=== PATIENT | male | born 1945 | race Caucasian/White ===

== ENCOUNTER 2017-05-24 08:00 | Outpatient (CLI) | payer MEDICARE, OTHER ==
[2017-05-26 11:56] LABS: TEST RESULT REPORT (())
== END 2017-05-24 23:59 | disposition home or self-care (01) ==
LOC: LAB.WCP 08:00
PROVIDERS: ATTEND Internal Medicine Gastroenterology
DX: K52.9 Noninfective gastroenteritis and colitis, unspecified (principal)
CPT/HCPCS: 81599; 82705; 87045; 87046; 87177; 87209; 87329; 87493

== ENCOUNTER 2017-06-01 16:47 | Emergency (ER) | payer MEDICARE, OTHER ==
[2017-06-01] MEDS ORDERED: SODIUM CHLORIDE FLUSH 0.9% 10 ML SYRINGE IVP ONE ×2 (17:22→19:53)
--- NOTE | 2017-06-01 17:49 | ED Physician Documentation ---
History of Present Illness - Stated complaint Stated Complaint: BACK PX, LE NUMBNESS - Chief complaint Chief Complaint: Back Pain - Additonal information Additional information: hx from pt and - but history is very difficult to obtain as best i can tell pt was in good health except for diarrhea when he was seen by his PMD office [facility] May 20 for diarrhea, they started him on a med taken q6h that he does not know the name of just that it is a "tiny little thing", eventually the diarrhea stopped, but now he has severe abd and low back pain like he is being squeezed and torn by a giant pain of pliers and both his legs are numb, this has been going on for 1-2 weeks, getting worse, he has only had water for at least 4 days but has been drinking annd making urine and has mostly been in bed only getting up to sit in his chair no headache no chest pain no fever no NV did not see PMD for same Review of Systems Constitutional: denies: Fever Cardiac: denies: Chest pain / pressure, Palpitations Respiratory: denies: Dyspnea, Cough GI: reports: Abdominal Pain, Diarrhea. denies: Nausea, Vomiting : denies: Dysuria Musculoskeletal: reports: Back pain Neurologic: reports: Numbness (both legs) Endocrine: denies: Easy bruising / bleeding Immunocompromised: denies: Immunocompromised PD PAST MEDICAL HISTORY - Past Medical History Cardiovascular: Hypertension, Coronary artery disease, Other Respiratory: Shortness of breath Neuro: Other Endocrine/Autoimmune: None GI: GERD : Benign prostate hypertrophy HEENT: Chronic hearing loss Psych: None Musculoskeletal: Osteoarthritis, Gout Derm: Other Other Past Medical History: ischemic cardiomyopathy - Past Surgical History Past Surgical History: Yes Cardiovascular: Coronary stent - Present Medications Home Medications: Ambulatory Orders Medication Instructions Recorded Confirmed Aspirin EC [Ecotrin] 325 mg PO DAILY 12/03/13 06/23/15 Atenolol [Tenormin] 25 mg PO BID 12/03/13 06/23/15 Atorvastatin Calcium [Lipitor] 20 mg PO HS 12/03/13 06/23/15 Cetirizine [ZyrTEC] 10 mg PO DAILY 12/03/13 06/23/15 Felodipine [Plendil] 10 mg PO DAILY 12/03/13 06/23/15 hydroCHLOROthiazide [Hydrodiuril] 12.5 mg PO DAILY 12/03/13 06/23/15 Cyclobenzaprine [Flexeril] 10 mg PO DAILY 06/23/15 06/23/15 Ezetimibe [Zetia] 10 mg PO DAILY 06/23/15 06/23/15 Fluticasone/Salmeterol [Advair 06/23/15 06/23/15 100-50 Diskus] HYDROcod/ACETAM 5/325 [Vicodin 06/23/15 06/23/15 5/325] Telmisartan [Micardis] 80 mg PO DAILY 06/23/15 06/23/15 - Allergies Allergies/Adverse Reactions: Allergies Allergy/AdvReac Type Severity Reaction Status Date / Time No Known Drug Allergies Allergy Verified 12/03/13 06:33 - Social History Does the pt smoke?: No Smoking Status: Never smoker Does the pt drink ETOH?: No Does the pt have substance abuse?: No - Immunizations Immunizations are current?: Yes - POLST Patient has POLST: No PD ED PE NORMAL - Vitals Vital signs reviewed: Yes - General General: Other (alert cooperative) - HEENT HEENT: Other (very [place]) - Neck Neck: Supple, no meningeal sign - Cardiac Cardiac: RRR - Respiratory Respiratory: No respiratory distress, Clear bilaterally - Abdomen Abdomen: Soft, Other (TTP mid abd, no pulasatile mass appreciated) - Back Back: Other (no rash) - Derm Derm: Normal color - Extremities Extremities: No deformity - Neuro Neuro: Other (pt has sensation light touch to legs, diffusely weak and cannot lift legs but foot dorsi/plantar flexion is 5/5, no ankle clonus) Results - Vitals Vitals: Vital Signs - 24 hr 06/01/17 06/01/17 06/01/17 17:06 17:34 17:36 Temperature 36.6 C Heart Rate 81 74 83 Respiratory 16 18 16 Rate Blood Pressure 72/45 L 92/47 L 88/53 L O2 Saturation 95 97 96 06/01/17 06/01/17 06/01/17 18:02 18:14 18:19 Temperature 36.2 C L Heart Rate 85 80 75 Respiratory 18 15 20 Rate Blood Pressure 136/56 H 97/54 L 107/39 L O2 Saturation 96 97 97 06/01/17 06/01/17 06/01/17 18:30 18:34 19:20 Temperature Heart Rate 78 74 80 Respiratory 18 20 18 Rate Blood Pressure 92/54 L 89/36 L 100/35 L O2 Saturation 85 L 95 99 06/01/17 06/01/17 06/01/17 20:00 20:33 22:04 Temperature Heart Rate 86 89 94 Respiratory 17 16 14 Rate Blood Pressure 99/48 L 93/38 L 113/48 L O2 Saturation 100 99 100 Oxygen O2 Source Nasal cannula Oxygen Flow Rate 2 - EKG (time done) 1956 Rate: Rate (enter#) (approx 80) Other comments: Other comments (wide complex regular no P waves seen c/w marked hyperkalmeia, possibly an escape rhythm) EKG#2 Other comments: Other comments (still wide complex c/w hyperkalemia but p waves now seen) - Labs Labs: Laboratory Tests 06/01/17 06/01/17 06/01/17 17:38 17:38 17:38 WBC 6.3 RBC 3.70 L Hgb 11.6 L Hct 35.5 L MCV 96.0 H MCH 31.4 H MCHC 32.7 RDW 16.7 H Plt Count 154 MPV 10.9 Neut # 4.7 Lymph # 1.1 L Wolfe # 0.5 Eos # 0.1 Baso # 0.0 Absolute Nucleated RBC 0.00 Nucleated RBCs 0.0 Sodium 131 L Potassium 7.5 H* Chloride 104 Carbon Dioxide 10 L* Anion Gap 17.0 H BUN 176 H* Creatinine 10.3 H* Estimated GFR (MDRD) 5 L Glucose 109 H POC Whole Bld Glucose Calcium 8.5 Total Bilirubin 0.8 AST 85 H ALT 59 Alkaline Phosphatase 112 Troponin I 0.32 Total Protein 7.3 Albumin 4.0 Globulin 3.3 Albumin/Globulin Ratio 1.2 Lipase 75 H Urine Color Urine Clarity Urine pH Ur Specific [place] Urine Protein Urine Glucose (UA) Urine Ketones Urine Occult Blood Urine Nitrite Urine Bilirubin Urine Urobilinogen Ur Leukocyte Esterase Urine RBC Urine WBC Ur Squamous Epith Cells Urine Bacteria Ur Microscopic Review Urine Culture Comments 06/01/17 06/01/17 06/01/17 20:44 20:49 22:00 WBC RBC Hgb Hct MCV MCH MCHC RDW Plt Count MPV Neut # Lymph # Wolfe # Eos # Baso # Absolute Nucleated RBC Nucleated RBCs Sodium 134 L Potassium 6.9 H* Chloride 109 Carbon Dioxide 13 L Anion Gap 12.0 BUN 169 H* Creatinine 9.1 H* Estimated GFR (MDRD) 6 L Glucose 178 H POC Whole Bld Glucose 158 H Calcium 7.8 L Total Bilirubin AST ALT Alkaline Phosphatase Troponin I Total Protein Albumin Globulin Albumin/Globulin Ratio Lipase Urine Color YELLOW Urine Clarity HAZY Urine pH 5.5 Ur Specific [place] 1.010 Urine Protein NEGATIVE Urine Glucose (UA) NEGATIVE Urine Ketones NEGATIVE Urine Occult Blood LARGE H Urine Nitrite NEGATIVE Urine Bilirubin NEGATIVE Urine Urobilinogen 0.2 (NORMAL) Ur Leukocyte Esterase NEGATIVE Urine RBC 6-10 H Urine WBC 0-3 Ur Squamous Epith Cells NONE SEEN Urine Bacteria None Seen Ur Microscopic Review INDICATED Urine Culture Comments NOT INDICATED - Rads (name of study) CT angio abd pelvis Radiology: See rad report (no acute process) PD MEDICAL DECISION MAKING - ED course ED course: pt with baseline renal insuff creat usually 1.6-2 range but pt with known vascular dz (ischemic cardiomypathy) presenting with severe acute abd and back pain and SBP 70 and nguyễn LE numbness, unable to viz aorta on bedside sono 2/2 overlying gas- sig concern for vascular catastrophe - so proceeded straight to angiogram without waiting for labs (which took 2 hr to result) - gave IVF 2 L to mitigate renal effects unfortunately when labs were eventually resulted, pt has new ARF with creat 10 and GFR 5 and associated hyperkalemia txed K with calcium insulin/D50/bicarb and will transfer as pt may need dialysis danuta after getting the IV contrast CT neg for any acute process or explanation for severe low abd to back pain and associated hypotension, after 2 L fluid BP up to 90s and pt pain is better - perhaps low flow ischemia though that should have shown on CTA as well with above intervention creat and K both improved though EKG # 2 is essentially unchanged Departure - Departure Disposition: 02 Transfer Acute Care Hosp Clinical Impression: Hyperkalemia Acute renal failure Qualifiers: Acute renal failure type: unspecified Qualified Code(s): N17.9 - Acute kidney failure, unspecified Hypotension Qualifiers: Hypotension type: unspecified hypotension type Qualified Code(s): I95.9 - Hypotension, unspecified Abdominal pain Qualifiers: Abdominal location: lower abdomen, unspecified Qualified Code(s): R10.30 - Lower abdominal pain, unspecified Back pain Qualifiers: Back pain location: low back pain Chronicity: acute Back pain laterality: unspecified Sciatica presence: unspecified whether sciatica present Qualified Code(s): M54.5 - Low back pain Condition: Critical
[2017-06-01] MEDS: SODIUM CHLORIDE 0.9% 2,000 ML IV ONE (17:53)
[2017-06-01 18:08] LABS: BASOPHILS % (AUTO) 0.4 %; EOSINOPHILS # (AUTO) 0.1 10^3/uL (0.0-0.7); EOSINOPHILS % (AUTO) 0.9 %; HCT - HEMATOCRIT 35.5 % (42.0-52.0); HGB - HEMOGLOBIN 11.6 g/dL (14.0-18.0); LYMPHOCYTES # (AUTO) 1.1 10^3/uL (1.5-3.5); LYMPHOCYTES % (AUTO) 17.3 %; MEAN CORPUSCULAR HEMOGLOBIN 31.4 pg (27.0-31.0); MEAN CORPUSCULAR HGB CONC 32.7 g/dL (32.0-36.0); MEAN PLATELET VOLUME 10.9 fL (7.4-11.4); MONOCYTES # (AUTO) 0.5 10^3/uL (0.0-1.0); MONOCYTES % (AUTO) 7.4 %; NEUTROPHILS # (AUTO) 4.7 10^3/uL (1.5-6.6); RED CELL DISTRIBUTION WIDTH 16.7 % (12.0-15.0); UNCORRECTED WHITE BLOOD COUNT 6.3 x10^3/uL; WHITE BLOOD COUNT 6.3 x10^3/uL (4.8-10.8)
--- NOTE | 2017-06-01 19:10 | CT Preliminary Report ---
Exam: CT Abdomen/Pelvis Angio IMPRESSION: 1. No bowel obstruction, fluid collection or acute inflammatory process within the abdomen and pelvis . [facility] SITE ID: [id number]
--- NOTE | 2017-06-01 19:13 | CT Report ---
EXAM: CT ABDOMEN AND PELVIS EXAM DATE: 06/01/2017 06:31 PM. CLINICAL HISTORY: Abd pain back pain SBP 70. COMPARISONS: None. TECHNIQUE: Routine helical CT imaging was performed through the abdomen and pelvis. IV contrast: 100 mL Isovue-300. Enteric contrast: No. Reconstructions: Coronal and sagittal. In accordance with CT protocol optimization, one or more of the following dose reduction techniques w ere utilized for this exam: automated exposure control, adjustment of mA and/or KV based on patient s ize, or use of iterative reconstructive technique. FINDINGS: Lung Bases: Unremarkable. Liver: Normal. No masses. Gallbladder/Bile Ducts: Unremarkable. Spleen: Normal. Pancreas: Normal. Adrenal Glands: Normal. Kidneys: Numerous bilateral renal cysts. No solid renal mass or hydronephrosis. Peritoneal Cavity/Bowel: Normal. No free fluid, free air or adenopathy. No masses or acute inflammato ry process. No evidence of appendicitis. Pelvic Organs: Normal. The bladder and visualized pelvic organs are within normal limits. Vasculature: Atherosclerotic aortoiliac disease. No evidence of aneurysm. Bones: No significant abnormality. Other: None. IMPRESSION: 1. No bowel obstruction, fluid collection or acute inflammatory process within the abdomen and pelvis . [facility] Referring Provider Line: [phone] SITE ID: [id number]
[2017-06-01 19:26] LABS: ALBUMIN/GLOBULIN RATIO 1.2 (1.0-2.2); BILIRUBIN,TOTAL 0.8 mg/dL (0.2-1.0); CALCIUM 8.5 mg/dL (8.5-10.3); TOTAL PROTEIN 7.3 g/dL (6.7-8.2)
[2017-06-01 19:27] LABS: POTASSIUM 7.5 mmol/L (3.5-5.0)
[2017-06-01 19:28] LABS: CREATININE 10.3 mg/dL (0.6-1.2)
[2017-06-01] MEDS: IOPAMIDOL-300 100 ML VIAL IVP ONE (19:37)
[2017-06-01] MEDS ORDERED: CALCIUM GLUCONATE 1000 MG/10 ML VIAL ONE (19:51)
[2017-06-01] MEDS ORDERED: SODIUM POLYSTYRENE SULFONATE 15 GM/60 ML BOTTLE ONE (19:51)
[2017-06-01] MEDS ORDERED: DEXTROSE 50% ABBOJECT 25 GM/50 ML SYRINGE ONE (19:52)
[2017-06-01] MEDS ORDERED: INSULIN REGULAR HUMAN 100 UNIT/1 ML 10 ML MDV ONE (19:53)
[2017-06-01] MEDS: CALCIUM GLUCONATE 1000 MG/10 ML VIAL IVP STA (20:03)
[2017-06-01] MEDS: DEXTROSE 50% ABBOJECT 25 GM/50 ML SYRINGE IVP STA (20:04)
[2017-06-01] MEDS: INSULIN REGULAR HUMAN 100 UNIT/1 ML 10 ML MDV IVP STA (20:05)
[2017-06-01] MEDS: SODIUM CHLORIDE 0.9% 1,000 ML IV ONE (20:24)
[2017-06-01] MEDS: SODIUM POLYSTYRENE SULFONATE 15 GM/60 ML BOTTLE PO STA (20:24)
[2017-06-01] MEDS: SODIUM BICARBONATE ABBOJECT 50 MEQ/50 ML SYRINGE IVP STA (20:28)
[2017-06-01] MEDS ORDERED: SODIUM BICARBONATE ABBOJECT 50 MEQ/50 ML SYRINGE ONE (20:30)
[2017-06-01 21:22] LABS: CALCIUM 7.8 mg/dL (8.5-10.3); POTASSIUM 6.9 mmol/L (3.5-5.0)
[2017-06-01 21:23] LABS: CREATININE 9.1 mg/dL (0.6-1.2)
--- NOTE | 2017-06-01 21:32 | XRAY Preliminary Report ---
Exam: XR Chest 1 View IMPRESSION: No definite acute abnormality of the chest. [facility] SITE ID: [id number]
--- NOTE | 2017-06-01 21:35 | XRAY Report ---
EXAM: CHEST RADIOGRAPHY EXAM DATE: 06/01/2017 09:04 PM. CLINICAL HISTORY: Critical ill. COMPARISON: 2 views 04/06/2016. TECHNIQUE: 1 view. FINDINGS: Lungs/Pleura: Mildly diminished lung volumes. No definite pulmonary infiltrate, pulmonary edema, pleu ral effusion or pneumothorax. Mediastinum: Within exam limitations, cardiomediastinal contour is normal. Other: None. IMPRESSION: No definite acute abnormality of the chest. [facility] Referring Provider Line: [phone] SITE ID: [id number]
[2017-06-01 22:13] VITALS: BP 113/48
[2017-06-01 22:30] LABS: BILIRUBIN,URINE NEGATIVE (NEGATIVE); PH,URINE 5.5 PH (5.0-7.5)
[2017-06-01 22:35] LABS: UA w/ MICROSCOPIC CHARGE YES
[2017-06-01 22:54] LABS: WBC,URINE 0-3 /HPF (0-3)
[2017-06-01 22:55] LABS: UR CULTURE IF IND NOT INDICATED
== END 2017-06-01 23:11 | disposition short-term general hospital (02) ==
LOC: ED 16:47
DX: E87.5 Hyperkalemia (principal); N17.9 Acute kidney failure, unspecified; I95.9 Hypotension, unspecified; R10.30 Lower abdominal pain, unspecified; M54.5 Low back pain; I10 Essential (primary) hypertension; I25.10 Atherosclerotic heart disease of native coronary artery without angina pectoris; K21.9 Gastro-esophageal reflux disease without esophagitis; N40.0 Benign prostatic hyperplasia without lower urinary tract symptoms; M10.9 Gout, unspecified; M19.90 Unspecified osteoarthritis, unspecified site; Z79.82 Long term (current) use of aspirin
CPT/HCPCS: 36415; 51702; 71010; 74174; 80048; 80053; 81001; 83690; 84484; 85025; 93005; 96361; 96374; 96375; 99284; 99285; A9270; J1815; Q9967; 81003; 87086

== ENCOUNTER 2017-06-01 23:06 | Outpatient (CLI) | payer MEDICARE, OTHER | END 2017-06-01 23:07 | disposition short-term general hospital (02) | LOC: EMS 23:06 | PROVIDERS: ATTEND Surgery | DX: N19 Unspecified kidney failure (principal); E87.5 Hyperkalemia | CPT/HCPCS: A0425; A0426 ==

== ENCOUNTER 2017-10-01 13:05 | Outpatient (CLI) | payer MEDICARE, OTHER ==
[2017-10-01 19:11] LABS: IRON 49 ug/dL (45-182); TOTAL IRON BINDING CAPACITY 336 ug/dL (250-450); TRANSFERRIN 240 mg/dL (180-329)
== END 2017-10-01 13:06 | disposition home or self-care (01) ==
LOC: LAB.WCP 13:05
PROVIDERS: ATTEND Internal Medicine Cardiovascular Disease
DX: D64.9 Anemia, unspecified (principal)
CPT/HCPCS: 36415; 82607; 82746; 83540; 84466

== ENCOUNTER 2017-11-03 09:45 | Outpatient (CLI) | payer MEDICARE, OTHER ==
[2017-11-03 19:31] LABS: BASOPHILS # (AUTO) 0.1 10^3/uL (0.0-0.1); BASOPHILS % (AUTO) 1.1 %; EOSINOPHILS # (AUTO) 0.3 10^3/uL (0.0-0.7); EOSINOPHILS % (AUTO) 4.4 %; HGB - HEMOGLOBIN 12.5 g/dL (14.0-18.0); LYMPHOCYTES # (AUTO) 1.1 10^3/uL (1.5-3.5); LYMPHOCYTES % (AUTO) 16.9 %; MEAN CORPUSCULAR HEMOGLOBIN 30.9 pg (27.0-31.0); MEAN CORPUSCULAR HGB CONC 32.6 g/dL (32.0-36.0); MEAN CORPUSCULAR VOLUME 94.5 fL (80.0-94.0); MEAN PLATELET VOLUME 10.4 fL (7.4-11.4); MONOCYTES # (AUTO) 0.9 10^3/uL (0.0-1.0); MONOCYTES % (AUTO) 13.5 %; NEUTROPHILS # (AUTO) 4.3 10^3/uL (1.5-6.6); NEUTROPHILS % (AUTO) 64.1 %; PLT - PLATELET COUNT 162 10^3/uL (130-450); RED BLOOD COUNT 4.05 10^6/uL (4.70-6.10); RED CELL DISTRIBUTION WIDTH 16.9 % (12.0-15.0); WHITE BLOOD COUNT 6.8 x10^3/uL (4.8-10.8)
[2017-11-03 19:37] LABS: ALBUMIN 4.2 g/dL (3.2-5.5); ALBUMIN/GLOBULIN RATIO 1.3 (1.0-2.2); BILIRUBIN,TOTAL 0.6 mg/dL (0.2-1.0); CALCIUM 8.8 mg/dL (8.5-10.3); CREATININE 1.6 mg/dL (0.6-1.2); TOTAL PROTEIN 7.4 g/dL (6.7-8.2)
== END 2017-11-03 09:46 | disposition home or self-care (01) ==
LOC: LAB.WCP 09:45
PROVIDERS: ATTEND Physician Assistant Medical
DX: B02.9 Zoster without complications (principal); Z51.81 Encounter for therapeutic drug level monitoring; Z79.899 Other long term (current) drug therapy
CPT/HCPCS: 36415; 80053; 85025

== ENCOUNTER 2018-02-02 08:00 | Outpatient (CLI) | payer MEDICARE, OTHER ==
[2018-02-02 13:00] LABS: BASOPHILS # (AUTO) 0.1 10^3/uL (0.0-0.1); BASOPHILS % (AUTO) 1.2 %; EOSINOPHILS # (AUTO) 0.4 10^3/uL (0.0-0.7); EOSINOPHILS % (AUTO) 4.6 %; HGB - HEMOGLOBIN 12.4 g/dL (14.0-18.0); LYMPHOCYTES # (AUTO) 3.2 10^3/uL (1.5-3.5); LYMPHOCYTES % (AUTO) 33.8 %; MEAN CORPUSCULAR HEMOGLOBIN 32.4 pg (27.0-31.0); MEAN CORPUSCULAR HGB CONC 33.9 g/dL (32.0-36.0); MEAN CORPUSCULAR VOLUME 95.7 fL (80.0-94.0); MEAN PLATELET VOLUME 10.7 fL (7.4-11.4); MONOCYTES # (AUTO) 0.9 10^3/uL (0.0-1.0); MONOCYTES % (AUTO) 9.4 %; NEUTROPHILS # (AUTO) 4.8 10^3/uL (1.5-6.6); PLT - PLATELET COUNT 176 10^3/uL (130-450); RED BLOOD COUNT 3.83 10^6/uL (4.70-6.10); RED CELL DISTRIBUTION WIDTH 17.4 % (12.0-15.0); WHITE BLOOD COUNT 9.4 x10^3/uL (4.8-10.8)
[2018-02-02 13:31] LABS: ALBUMIN 3.8 g/dL (3.2-5.5); ALBUMIN/GLOBULIN RATIO 1.2 (1.0-2.2); ALKALINE PHOSPHATASE 107 IU/L (42-121); ALT ALANINE AMINOTRANSFERASE 33 IU/L (10-60); AST ASPARTATE AMINOTRANSFERASE 30 IU/L (10-42); BILIRUBIN,TOTAL 0.9 mg/dL (0.2-1.0); BUN - BLOOD UREA NITROGEN 31 mg/dL (6-20); CALCIUM 8.7 mg/dL (8.5-10.3); CARBON DIOXIDE - CO2 24 mmol/L (21-32); CHLORIDE 106 mmol/L (101-111); CHOL/HDL RATIO 3.1 (<5.0); CHOLESTEROL 127 mg/dL; CREATININE 1.5 mg/dL (0.6-1.2); GFR - MDRD 46 (>89); GLUCOSE 97 mg/dL (70-100); HDL CHOLESTEROL 41 mg/dL; LDL CHOLESTEROL,CALCULATED 62 mg/dL; LDL/HDL RATIO 1.5 (<3.6); SODIUM 138 mmol/L (135-145); VLDL CHOLESTEROL 24 mg/dL
== END 2018-02-02 08:01 ==
LOC: LAB.WCP 08:00
PROVIDERS: ATTEND Family Medicine
DX: N18.3 Chronic kidney disease, stage 3 (moderate) (principal); I25.5 Ischemic cardiomyopathy; B02.9 Zoster without complications
CPT/HCPCS: 36415; 80053; 80061; 83721; 85025

== ENCOUNTER 2018-03-15 08:00 | Outpatient (CLI) | payer MEDICARE, OTHER ==
[2018-03-15 12:53] LABS: CALCIUM 8.9 mg/dL (8.5-10.3); CREATININE 2.7 mg/dL (0.6-1.2); PHOSPHORUS 5.4 mg/dL (2.5-4.6)
== END 2018-03-15 08:01 | disposition home or self-care (01) ==
LOC: LAB.WCP 08:00
PROVIDERS: ATTEND Internal Medicine Cardiovascular Disease
DX: I42.9 Cardiomyopathy, unspecified (principal)
CPT/HCPCS: 36415; 80069; 83880

== ENCOUNTER 2018-03-22 08:00 | Outpatient (CLI) | payer MEDICARE, OTHER ==
[2018-03-22 14:03] LABS: ALBUMIN 4.1 g/dL (3.2-5.5); CALCIUM 9.2 mg/dL (8.5-10.3); CREATININE 2.2 mg/dL (0.6-1.2); PHOSPHORUS 4.1 mg/dL (2.5-4.6)
== END 2018-03-22 08:01 | disposition home or self-care (01) ==
LOC: LAB.WCP 08:00
PROVIDERS: ATTEND Internal Medicine Cardiovascular Disease
DX: I11.0 Hypertensive heart disease with heart failure (principal); I50.22 Chronic systolic (congestive) heart failure
CPT/HCPCS: 36415; 80069; 83880

== ENCOUNTER 2018-04-05 08:00 | Outpatient (CLI) | payer MEDICARE, OTHER ==
[2018-04-05 13:22] LABS: ALBUMIN 3.6 g/dL (3.2-5.5); PHOSPHORUS 4.1 mg/dL (2.5-4.6)
== END 2018-04-05 08:01 ==
LOC: LAB.WCP 08:00
PROVIDERS: ATTEND Internal Medicine Cardiovascular Disease
DX: I50.22 Chronic systolic (congestive) heart failure (principal)
CPT/HCPCS: 36415; 80069; 83880

== ENCOUNTER 2018-05-12 06:11 | Day surgery (SDC) | payer MEDICARE, OTHER ==
[2018-05-12] MEDS ORDERED: LACTATED RINGERS 1,000 ML IV ONE (06:52)
--- NOTE | 2018-05-12 07:06 | ANESTHESIA ---
Pre-Anesthesia VS, & Labs - Diagnosis colon polyp, chronic diarrhea - Procedure colonoscopy Vital Signs: Temp Pulse Resp BP Pulse Ox 36.4 C L 65 16 137/60 H 95 05/12/18 06:32 05/12/18 06:32 05/12/18 06:32 05/12/18 06:32 05/12/18 06:32 Height 6 ft 1 in Weight (kg) 98.7 kg Body Mass Index 29.8 Home Medications and Allergies Home Medications: Ambulatory Orders Medication Instructions Recorded Confirmed Aspirin EC [Ecotrin] 325 mg PO DAILY 12/03/13 05/12/18 Atorvastatin Calcium [Lipitor] 40 mg PO HS 12/03/13 05/12/18 Cetirizine [ZyrTEC] 10 mg PO DAILY 12/03/13 05/12/18 Felodipine [Plendil] 10 mg PO DAILY 12/03/13 05/12/18 Fluticasone/Salmeterol [Advair 1 ea IH BID 06/23/15 05/12/18 100-50 Diskus] Allopurinol 150 mg PO BID 05/09/18 05/12/18 Colchicine [Colcrys] 0.6 ea PO BID 05/09/18 05/12/18 Fluticasone Propionate [24 Hour 9.9 ml NS BID 05/09/18 05/12/18 Allergy] Furosemide [Lasix] 20 mg PO DAILY 05/09/18 05/12/18 Lisinopril 2.5 mg PO DAILY 05/09/18 05/12/18 Loperamide HCl [Loperamide] 2 mg PO DAILY 05/09/18 05/12/18 Metoprolol Succinate [Toprol Xl] 50 mg PO DAILY 05/09/18 05/12/18 Pantoprazole Sodium 40 mg PO DAILY 05/09/18 05/12/18 Spironolactone 12.5 mg PO DAILY 05/09/18 05/12/18 Terazosin HCl 10 mg PO DAILY 05/09/18 05/12/18 Allergies/Adverse Reactions: Allergies Allergy/AdvReac Type Severity Reaction Status Date / Time simvastatin [From Zocor] AdvReac Unknown Verified 05/12/18 06:58 Anes History & Medical History - Anesthetic History Anesthesia Complications: reports: No previous complications - Airway/Dental Dental: Poor dentition (own, none loose) - Medical History Cardiovascular: reports: Hypertension, High cholesterol, Coronary artery disease , Peripheral Vascular Disease, Other Pulmonary: reports: Shortness of breath, Other Gastrointestinal: reports: GERD, Colon polyps, Chronic diarrhea Urinary: reports: Benign prostate hypertrophy, Renal insuffiency Musculoskeletal: reports: Osteoarthritis, Gout, Chronic back pain Endocrine/Autoimmune: reports: None Skin: reports: Other Smoking Status: Never smoker - Surgical History Orthopedic: Arthroscopic surgery (knee) Cardiothoracic: Coronary stent, Cardiac catheterization Eyes Ears Nose Throat (EENT): Cataracts, Tonsil/Adenoidectomy Results - EKG Results EKG Comparison: Reviewed EKG Exam General: Alert, Oriented x3 Respiratory: Lungs clear Cardiovascular: Regular rate, Normal S1, Normal S2, No murmurs Mental/Cognitive Status: Alert/Oriented X3 Plan Anesthesia Type: MAC ASA classification: 3-Severe systemic disease Is this case an emergency?: No
[2018-05-12] MEDS ORDERED: LIDOCAINE-MPF 2% 5 ML VIAL IM ONE (07:40)
[2018-05-12] MEDS ORDERED: ETOMIDATE 40 MG/20 ML VIAL IVP ONE (07:40)
[2018-05-12] MEDS ORDERED: PROPOFOL 200 MG/20 ML VIAL IVP ONE (07:40)
[2018-05-12 08:25] VITALS: BP 127/59
== END 2018-05-12 06:12 | disposition home or self-care (01) ==
LOC: SDS 06:11
PROVIDERS: ATTEND Internal Medicine Gastroenterology
PROC: 0DBE8ZX Excision of Large Intestine, Via Natural or Artificial Opening Endoscopic, Diagnostic (ICD-10-PCS; principal; 2018-05-12 07:30)
DX: K52.9 Noninfective gastroenteritis and colitis, unspecified (principal); I10 Essential (primary) hypertension; I44.7 Left bundle-branch block, unspecified; I25.10 Atherosclerotic heart disease of native coronary artery without angina pectoris; K21.9 Gastro-esophageal reflux disease without esophagitis; I42.9 Cardiomyopathy, unspecified; J45.909 Unspecified asthma, uncomplicated; G47.30 Sleep apnea, unspecified; Z79.82 Long term (current) use of aspirin; Z79.899 Other long term (current) drug therapy; Z86.010 Personal history of colon polyps; Z95.810 Presence of automatic (implantable) cardiac defibrillator; Z95.5 Presence of coronary angioplasty implant and graft
CPT/HCPCS: 45380; J7120

== ENCOUNTER 2018-05-25 08:00 | Outpatient (CLI) | payer MEDICARE, OTHER | END 2018-05-25 08:01 | disposition home or self-care (01) | LOC: LAB.WCP 08:00 | PROVIDERS: ATTEND Internal Medicine Gastroenterology | DX: K52.9 Noninfective gastroenteritis and colitis, unspecified (principal) | CPT/HCPCS: 81599; 87045; 87046; 87177; 87209; 87329; 87493 ==

== ENCOUNTER 2018-07-18 13:00 | Outpatient (CLI) | payer MEDICARE, OTHER ==
[2018-07-18 19:12] LABS: ALBUMIN 3.9 g/dL (3.2-5.5); CALCIUM 8.9 mg/dL (8.5-10.3); CREATININE 2.1 mg/dL (0.6-1.2); PHOSPHORUS 3.9 mg/dL (2.5-4.6)
== END 2018-07-18 13:01 | disposition home or self-care (01) ==
LOC: LAB.WCP 13:00
PROVIDERS: ATTEND Internal Medicine Cardiovascular Disease
DX: I50.22 Chronic systolic (congestive) heart failure (principal)
CPT/HCPCS: 36415; 80069; 83880

== ENCOUNTER 2018-07-25 10:10 | Outpatient (CLI) | payer MEDICARE, OTHER ==
[2018-07-25 19:09] LABS: BASOPHILS # (AUTO) 0.1 10^3/uL (0.0-0.1); BASOPHILS % (AUTO) 1.3 %; EOSINOPHILS # (AUTO) 0.7 10^3/uL (0.0-0.7); EOSINOPHILS % (AUTO) 8.6 %; LYMPHOCYTES # (AUTO) 2.7 10^3/uL (1.5-3.5); LYMPHOCYTES % (AUTO) 32.5 %; MEAN CORPUSCULAR HEMOGLOBIN 32.8 pg (27.0-31.0); MEAN CORPUSCULAR HGB CONC 33.8 g/dL (32.0-36.0); MEAN CORPUSCULAR VOLUME 97.1 fL (80.0-94.0); MEAN PLATELET VOLUME 10.6 fL (7.4-11.4); MONOCYTES # (AUTO) 0.6 10^3/uL (0.0-1.0); MONOCYTES % (AUTO) 6.8 %; NEUTROPHILS # (AUTO) 4.2 10^3/uL (1.5-6.6); NEUTROPHILS % (AUTO) 50.8 %; PLT - PLATELET COUNT 197 10^3/uL (130-450); RED BLOOD COUNT 3.66 10^6/uL (4.70-6.10); RED CELL DISTRIBUTION WIDTH 17.2 % (12.0-15.0); WHITE BLOOD COUNT 8.3 x10^3/uL (4.8-10.8)
[2018-07-25 19:28] LABS: ALBUMIN 3.9 g/dL (3.2-5.5); ALBUMIN/GLOBULIN RATIO 1.1 (1.0-2.2); ALKALINE PHOSPHATASE 107 IU/L (42-121); ALT ALANINE AMINOTRANSFERASE 29 IU/L (10-60); AST ASPARTATE AMINOTRANSFERASE 34 IU/L (10-42); BILIRUBIN,TOTAL 0.6 mg/dL (0.2-1.0); BUN - BLOOD UREA NITROGEN 31 mg/dL (6-20); CALCIUM 9.1 mg/dL (8.5-10.3); CARBON DIOXIDE - CO2 23 mmol/L (21-32); CHLORIDE 106 mmol/L (101-111); CHOL/HDL RATIO 2.9 (<5.0); CHOLESTEROL 113 mg/dL; CREATININE 0.8 mg/dL (0.6-1.2); GFR - MDRD 94 (>89); GLUCOSE 104 mg/dL (70-100); HDL CHOLESTEROL 39 mg/dL; LDL CHOLESTEROL,CALCULATED 50 mg/dL; LDL/HDL RATIO 1.3 (<3.6); SODIUM 138 mmol/L (135-145); TOTAL PROTEIN 7.3 g/dL (6.7-8.2); VLDL CHOLESTEROL 24 mg/dL
== END 2018-07-25 10:11 | disposition home or self-care (01) ==
LOC: LAB.WCP 10:10
PROVIDERS: ATTEND Family Medicine
DX: N18.3 Chronic kidney disease, stage 3 (moderate) (principal); I25.5 Ischemic cardiomyopathy; R97.20 Elevated prostate specific antigen [PSA]; E78.5 Hyperlipidemia, unspecified
CPT/HCPCS: 36415; 80053; 80061; 84443; 85025; G0103; 83721; 84153

== ENCOUNTER 2019-01-03 08:00 | Outpatient (CLI) | payer MEDICARE, OTHER ==
[2019-01-03 12:36] LABS: HGB - HEMOGLOBIN 11.8 g/dL (14.0-18.0); MEAN CORPUSCULAR HEMOGLOBIN 32.4 pg (27.0-31.0); MEAN CORPUSCULAR HGB CONC 33.1 g/dL (32.0-36.0); MEAN PLATELET VOLUME 10.2 fL (7.4-11.4); RED BLOOD COUNT 3.65 10^6/uL (4.70-6.10); RED CELL DISTRIBUTION WIDTH 16.7 % (12.0-15.0); WHITE BLOOD COUNT 6.8 x10^3/uL (4.8-10.8)
[2019-01-03 13:10] LABS: ALBUMIN 3.9 g/dL (3.2-5.5); ALT ALANINE AMINOTRANSFERASE 31 IU/L (10-60); AST ASPARTATE AMINOTRANSFERASE 30 IU/L (10-42); BUN - BLOOD UREA NITROGEN 64 mg/dL (6-20); CARBON DIOXIDE - CO2 20 mmol/L (21-32); CHLORIDE 103 mmol/L (101-111); CHOL/HDL RATIO 2.2 (<5.0); CHOLESTEROL 93 mg/dL; CK- CREATINE KINASE 139 IU/L (22-269); CREATININE 2.4 mg/dL (0.6-1.2); GFR - MDRD 27 (>89); GLUCOSE 101 mg/dL (70-100); HDL CHOLESTEROL 43 mg/dL; LDL CHOLESTEROL,CALCULATED 34 mg/dL; LDL CHOLESTEROL,DIRECT 42 mg/dL; LDL/HDL RATIO 0.8 (<3.6); PHOSPHORUS 4.7 mg/dL (2.5-4.6); SODIUM 132 mmol/L (135-145); VLDL CHOLESTEROL 16 mg/dL
[2019-01-03 13:20] LABS: HB2 TOTAL 12.6 g/dL; HEMOGLOBIN A1C 0.48 g/dL; HEMOGLOBIN A1C % 5.6 % (4.6-6.2)
[2019-01-06 17:26] LABS: ALBUMIN 3.6 g/dL (3.8-4.8); ALPHA 1 GLOBULIN 0.3 g/dL (0.2-0.3); ALPHA 2 GLOBULIN 0.8 g/dL (0.5-0.9); BETA 1 GLOBULIN 0.4 g/dL (0.4-0.6); BETA 2 GLOBULIN 0.5 g/dL (0.2-0.5); GAMMA GLOBULIN 1.3 g/dL (0.8-1.7)
== END 2019-01-03 23:59 | disposition home or self-care (01) ==
LOC: LAB.WCP 08:00
PROVIDERS: ATTEND Internal Medicine Cardiovascular Disease
DX: I48.91 Unspecified atrial fibrillation (principal); I50.22 Chronic systolic (congestive) heart failure; E78.5 Hyperlipidemia, unspecified; G62.9 Polyneuropathy, unspecified
CPT/HCPCS: 36415; 80061; 80069; 82550; 82746; 83036; 83721; 83880; 84155; 84165; 84450; 84460; 85027; 85651

== ENCOUNTER 2019-01-08 11:24 | Observation (INO) | payer MEDICARE, OTHER ==
--- NOTE | 2019-01-08 12:27 | ED Physician Documentation ---
History of Present Illness - Stated complaint Stated Complaint: GLF SOA - Chief complaint Chief Complaint: General - History obtained from History obtained from: Patient, Family - History of Present Illness Timing: Last night (This is a 73-year-old gentleman with history of cardiomyopathy, I do not know his most recent ejection fraction, but the last echo in our system was 2016 and he had an EF of 20-25%. He is on Eliquis, his understanding is that is a combination of cardiomyopathy and A. fib. He has an AICD in place, it is a [employer] model G158, serial #[id number]. His cripple chaser is Dr. Juno Su at the [facility] in [place]. Last night he was going to marinated some steaks. He felt a wave come over him and turned around and fell down. He did not lose consciousness. He hit his back. There is no other injury. He is 100% sure he did not hit his head. He complains of moderate low back pain, but denies pain medications on this for initial evaluation. He notes recently that he is been constipated but denies dark or tarry stools. He is been somewhat short of breath and it hurts to take a deep breath in the low back. He denies chest pain. In the last few weeks he started duloxetine and Flomax.) Review of Systems Ten Systems: 10 systems reviewed and negative Constitutional: reports: Fatigue. denies: Fever, Chills Throat: denies: Sore throat Cardiac: denies: Chest pain / pressure, Palpitations, Calf pain Respiratory: reports: Dyspnea, Cough GI: reports: Constipation. denies: Abdominal Pain, Nausea, Vomiting, Hematemesis PD PAST MEDICAL HISTORY - Past Medical History Cardiovascular: Hypertension, High cholesterol, Coronary artery disease, Peripheral Vascular Disease, Other Respiratory: Shortness of breath, Other Endocrine/Autoimmune: None GI: GERD, Colon polyps, Chronic diarrhea : Benign prostate hypertrophy, Renal insuffiency HEENT: Chronic sinusitis, Chronic hearing loss Psych: Anxiety Musculoskeletal: Osteoarthritis, Gout, Chronic back pain Derm: Other - Past Surgical History Past Surgical History: Yes Ortho: Arthroscopic surgery (knee) Cardiovascular: Coronary stent, Cardiac catheterization HEENT: Cataracts, Tonsil/Adenoidectomy - Present Medications Home Medications: Ambulatory Orders Medication Instructions Recorded Confirmed Aspirin EC [Ecotrin] 325 mg PO DAILY 12/03/13 05/12/18 Atorvastatin Calcium [Lipitor] 40 mg PO HS 12/03/13 05/12/18 Cetirizine [ZyrTEC] 10 mg PO DAILY 12/03/13 05/12/18 Felodipine [Plendil] 10 mg PO DAILY 12/03/13 05/12/18 Fluticasone/Salmeterol [Advair 1 ea IH BID 06/23/15 05/12/18 100-50 Diskus] Allopurinol 150 mg PO BID 05/09/18 05/12/18 Colchicine [Colcrys] 0.6 ea PO BID 05/09/18 05/12/18 Fluticasone Propionate [24 Hour 9.9 ml NS BID 05/09/18 05/12/18 Allergy] Furosemide [Lasix] 20 mg PO DAILY 05/09/18 05/12/18 Lisinopril 2.5 mg PO DAILY 05/09/18 05/12/18 Loperamide HCl [Loperamide] 2 mg PO DAILY 05/09/18 05/12/18 Metoprolol Succinate [Toprol Xl] 50 mg PO DAILY 05/09/18 05/12/18 Pantoprazole Sodium 40 mg PO DAILY 05/09/18 05/12/18 Spironolactone 12.5 mg PO DAILY 05/09/18 05/12/18 Apixaban [Eliquis] 5 mg PO DAILY 01/08/19 01/08/19 Duloxetine HCl [Cymbalta] 20 mg PO DAILY 01/08/19 01/08/19 Tamsulosin [Flomax] 1 tab DAILY 01/08/19 01/08/19 - Allergies Allergies/Adverse Reactions: Allergies Allergy/AdvReac Type Severity Reaction Status Date / Time hydrocodone Allergy Unknown Verified 01/08/19 11:39 simvastatin [From Zocor] AdvReac Unknown Verified 01/08/19 11:39 - Social History Does the pt smoke?: No Smoking Status: Never smoker Does the pt drink ETOH?: No Does the pt have substance abuse?: No - Family History Family history: reports: Non contributory - Immunizations Immunizations are current?: Yes - POLST Patient has POLST: No PD ED PE NORMAL - Vitals Vital signs reviewed: Yes - General General: Alert and oriented X 3, No acute distress - HEENT HEENT: PERRL, EOMI - Neck Neck: Supple, no meningeal sign, No bony TTP - Cardiac Cardiac: RRR, No murmur - Respiratory Respiratory: No respiratory distress, Other (diminished) - Abdomen Abdomen: Soft, Non tender - Back Back: Other (TTP about L3/L4) - Extremities Extremities: No edema, No calf tenderness / cord - Neuro Neuro: Alert and oriented X 3, Normal speech Results - Vitals Vitals: Vital Signs - 24 hr 01/08/19 01/08/19 11:31 13:25 Temperature 36 C L Heart Rate 74 65 Respiratory 20 16 Rate Blood Pressure 93/50 L 132/71 H O2 Saturation 98 97 Oxygen O2 Source Room air - EKG (time done) 1222 Rate: Rate (enter#) (65) Rhythm: Other (Atrial sensed ventricular paced rhythm) Computer interpretation: Agree with computer - Labs Labs: Laboratory Tests 01/08/19 01/08/19 01/08/19 12:15 12:15 12:15 WBC 8.5 RBC 3.86 L Hgb 12.6 L Hct 37.5 L MCV 97.1 H MCH 32.6 H MCHC 33.6 RDW 16.3 H Plt Count 181 MPV 9.6 Neut # (Auto) 5.7 Lymph # (Auto) 1.3 L Perry # (Auto) 0.9 Eos # (Auto) 0.4 Baso # (Auto) 0.2 H Absolute Nucleated RBC 0.00 Nucleated RBC % 0.0 Sodium 129 L Potassium 4.6 Chloride 102 Carbon Dioxide 19 L Anion Gap 8.0 BUN 69 H Creatinine 2.4 H Estimated GFR (MDRD) 27 L Glucose 107 H Calcium 9.0 Total Bilirubin 1.1 H AST 33 ALT 37 Alkaline Phosphatase 132 H Total Creatine Kinase 121 CK-MB (CK-2) 2.5 Troponin I < 0.04 B-Natriuretic Peptide Total Protein 7.9 Albumin 4.1 Globulin 3.8 Albumin/Globulin Ratio 1.1 Lipase 39 01/08/19 12:15 WBC RBC Hgb Hct MCV MCH MCHC RDW Plt Count MPV Neut # (Auto) Lymph # (Auto) Perry # (Auto) Eos # (Auto) Baso # (Auto) Absolute Nucleated RBC Nucleated RBC % Sodium Potassium Chloride Carbon Dioxide Anion Gap BUN Creatinine Estimated GFR (MDRD) Glucose Calcium Total Bilirubin AST ALT Alkaline Phosphatase Total Creatine Kinase CK-MB (CK-2) Troponin I B-Natriuretic Peptide 49 Total Protein Albumin Globulin Albumin/Globulin Ratio Lipase - Rads (name of study) LS Spine CT Radiology: EMP read contemporaneously (wilberto WADE) PD MEDICAL DECISION MAKING - ED course ED course: This is a 73-year-old gent with cardiomyopathy, AICD, anticoagulated who presents with a dizzy episode last night causing a fall. No head injury. He hurt his back though without corresponding findings on imaging. Looks like his baseline creatinine varies significantly but in the recent past he has been as low as 0.8. He has widely varying renal function now, presumed depending on his hydration and Diuretic status. Recently started Flomax which may be relevant, his creatinine is up to 2-1/2 today with high BUN suggesting prerenal azotemia causing acute renal failure, which probably caused the near syncope and back injury. Given his cardiomyopathy we will hospitalize him for gentle hydration, pulmonary monitoring and lab monitoring. Spoke with Dr. Berry for admission at 1:25 PM. Departure - Departure Disposition: ED Place in Observation Clinical Impression: Near syncope Acute renal failure Qualifiers: Acute renal failure type: unspecified Qualified Code(s): N17.9 - Acute kidney failure, unspecified Back pain Qualifiers: Back pain location: low back pain Chronicity: acute Back pain laterality: midline Sciatica presence: without sciatica Qualified Code(s): M54.5 - Low back pain Hypotension Qualifiers: Hypotension type: orthostatic hypotension Qualified Code(s): I95.1 - Orthostatic hypotension Condition: Serious
[2019-01-08 12:29] LABS: BASOPHILS # (AUTO) 0.2 10^3/uL (0.0-0.1); BASOPHILS % (AUTO) 2.3 %; EOSINOPHILS # (AUTO) 0.4 10^3/uL (0.0-0.7); EOSINOPHILS % (AUTO) 4.9 %; HGB - HEMOGLOBIN 12.6 g/dL (14.0-18.0); LYMPHOCYTES # (AUTO) 1.3 10^3/uL (1.5-3.5); LYMPHOCYTES % (AUTO) 15.7 %; MEAN CORPUSCULAR HEMOGLOBIN 32.6 pg (27.0-31.0); MEAN CORPUSCULAR HGB CONC 33.6 g/dL (32.0-36.0); MEAN CORPUSCULAR VOLUME 97.1 fL (80.0-94.0); MEAN PLATELET VOLUME 9.6 fL (7.4-11.4); MONOCYTES # (AUTO) 0.9 10^3/uL (0.0-1.0); MONOCYTES % (AUTO) 10.3 %; NEUTROPHILS # (AUTO) 5.7 10^3/uL (1.5-6.6); NEUTROPHILS % (AUTO) 66.8 %; PLT - PLATELET COUNT 181 10^3/uL (130-450); RED BLOOD COUNT 3.86 10^6/uL (4.70-6.10); RED CELL DISTRIBUTION WIDTH 16.3 % (12.0-15.0); WHITE BLOOD COUNT 8.5 x10^3/uL (4.8-10.8)
[2019-01-08 12:39] LABS: ALBUMIN 4.1 g/dL (3.2-5.5); ALBUMIN/GLOBULIN RATIO 1.1 (1.0-2.2); BILIRUBIN,TOTAL 1.1 mg/dL (0.2-1.0); CREATININE 2.4 mg/dL (0.6-1.2); TOTAL PROTEIN 7.9 g/dL (6.7-8.2)
[2019-01-08 12:44] LABS: TROPONIN I < 0.04 ng/mL (<0.49)
[2019-01-08 12:46] LABS: CREATINE KINASE MB 2.5 ng/mL (0.6-6.3)
--- NOTE | 2019-01-08 13:15 | CT Report ---
Reason: back inj Procedure Date: 01/08/2019 Accession Number: [id number] / [id number] Procedure: CT - LUMBAR SPINE WO CPT Code: FULL RESULT: EXAM: CT LUMBAR SPINE WITHOUT CONTRAST EXAM DATE: 01/08/2019 12:47 PM. CLINICAL HISTORY: Back inj. COMPARISONS: ABDOMEN/PELVIS ANGIO 06/01/2017 6:04 PM. TECHNIQUE: Thin-section axial images were acquired of the lumbar spine from T12 to S1 without contrast. Post-processing: Coronal and sagittal reformats. Other: None. In accordance with CT protocol optimization, one or more of the following dose reduction techniques were utilized for this exam: automated exposure control, adjustment of mA and/or KV based on patient size, or use of iterative reconstructive technique. FINDINGS: Alignment: No subluxation or scoliosis. Bones: Five [id number] lumbar vertebral bodies are present. The vertebral bodies appear normal in height. No fracture. No lytic or destructive bone lesion. There are moderate anterior bridging osteophytes from T11-L2. Disk Levels/Facets: Disk height is maintained. Facet joints appear in satisfactory alignment. There is no bony central spinal canal stenosis. Musculature: Paravertebral musculature appears symmetric. No fluid collection. Other: There are multiple bilateral renal cortical cysts. There is no kidney stone. No hydronephrosis. There is moderate calcification of the abdominal aorta without aneurysm. IMPRESSION: 1. Negative for acute fracture and subluxation of lumbar spine. 2. Anterior osteophyte spurring and anterior bridging osteophytes T11-L2. 3. Bilateral renal cysts. [facility]
[2019-01-08] MEDS ORDERED: SODIUM CHLORIDE 0.9% 1,000 ML IV ONE (13:24)
--- NOTE | 2019-01-08 13:34 | XRAY Report ---
Reason: dyspnea Procedure Date: 01/08/2019 Accession Number: [id number] / [id number] Procedure: XR - Chest 2 View X-Ray CPT Code: 69153 FULL RESULT: EXAM: CHEST RADIOGRAPHY EXAM DATE: 01/08/2019 12:47 PM. CLINICAL HISTORY: Dyspnea. COMPARISON: CHEST 2 VIEW PA/LAT 06/23/2015 8:50 AM. TECHNIQUE: 2 views. FINDINGS: Cardiac leads overlie the chest. There has been interval placement of a multichamber chemical cardiac device with the battery pack projecting over the lateral left chest. Device leads appear appropriately positioned. Low lung volumes accentuate the cardiac silhouette. Calcified plaques in the thoracic aorta. No consolidation, pleural effusion, or pneumothorax visualized. The bones are osteopenic. IMPRESSION: Low lung volumes. No evidence of focal pneumonia. [facility]
[2019-01-08] MEDS ORDERED: SODIUM CHLORIDE FLUSH 0.9% 10 ML SYRINGE IVP PRN (13:52)
[2019-01-08] MEDS ORDERED: ONDANSETRON 4 MG/2 ML VIAL IVP PRN (13:52)
[2019-01-08] MEDS: SODIUM CHLORIDE 0.9% 1,000 ML IV SCH ×2 (15:00→19:43)
--- NOTE | 2019-01-08 15:15 | HISTORY & PHYSICAL EXAMINATION ---
Chief Complaint - Chief Complaint Chief Complaint: near syncope with GLF History of Present Illness - Admitted From Admitted From:: [facility] - History Obtained From Records Reviewed: Yes History obtained from: Patient, son Alan and EMR - History of Present Illness HPI Comment/Other: Patient is a 73 year old with a complex medical history. His PMH is significant for cardiomyopathy s/p AICD, BPH, atrial fibrillation, gout, chronic back pain and renal insufficiency. He is followed by his PCP and multiple specialists. He last saw Dr. Severino December 28 -- his terazosin was changed to tamsulosin at that appointment. He was also recently started on duloxetine by Dr. Irene for neuropathy. His seaming machine operator is Dr. Juno Su. He presented to the ER today after sustaining a GLF yesterday evening at home. He was marinating steak in the kitchen. When he turned to grab a spice he felt weak and the 'color drained' from him and he fell to the ground landing on his right side. He did not hit his head. He complains of right wrist discomfort and right rib pain. He has chronic low back pain. Patient reports this has happened multiple times in recent past. He reports last week he was sitting and felt a 'wave come over him' as he attempted to stand up. Two weeks ago he reports he was in the bathroom, a 'wave came over' him and he fell. Work-up in the ER revealed BUN 69 with SCr 2.5. BNP 49. WBC wnl. Imaging negative for any acute processes. Given his complex medical comorbidities and cardiomyopathy, he is being admitted under observation for gentle hydration. He has not taken his medications today and he reports that he has not eaten today. Per the son, patient has not been walking too much lately. The patient states that his feet hurt a lot, and it feels like 'pins and needles'. Patient wishes to be a full code. History - Past Medical History Cardiovascular: reports: Hypertension, High cholesterol, Coronary artery disease, Peripheral Vascular Disease, Other Respiratory: reports: Shortness of breath, Other Neuro: reports: Peripheral neuropathy Endocrine/Autoimmune: reports: None GI: reports: GERD, Colon polyps, Chronic diarrhea : reports: Benign prostate hypertrophy, Renal insuffiency HEENT: reports: Chronic sinusitis, Chronic hearing loss (has bilateral hearing aids), Other (wears glasses) Psych: reports: Anxiety Musculoskeletal: reports: Osteoarthritis, Gout, Chronic back pain Derm: reports: Other MRSA Hx?: No - Past Surgical History Ortho: reports: Arthroscopic surgery Cardiovascular: reports: Coronary stent, Cardiac catheterization HEENT: reports: Cataracts, Tonsil/Adenoidectomy - Family & Social History Living arrangement: At home Living Situation: With spouse/s.o., With family Social History Notes: Patient has been for 55 years. He lives with his and his son. He also has a daughter. Patient is independent in his ADLs and continues to drive. - Substance History Use: Uses substance without health or social issues: NONE - POLST Patient has POLST: No Meds/Allgy - Home Medications Home Medications: Ambulatory Orders Medication Instructions Recorded Confirmed Allopurinol 300 mg PO DAILY 01/08/19 01/08/19 Apixaban [Eliquis] 5 mg PO BID 01/08/19 01/08/19 Aspirin 325 mg PO DAILY 01/08/19 01/08/19 Atorvastatin Calcium 40 mg PO QPM 01/08/19 01/08/19 Cetirizine HCl 10 mg PO DAILY 01/08/19 01/08/19 Colchicine [Colcrys] 0.6 mg PO BID 01/08/19 01/08/19 Duloxetine HCl 20 mg PO DAILY 01/08/19 01/08/19 Felodipine [Felodipine ER] 2.5 mg PO DAILY 01/08/19 01/08/19 Felodipine [Plendil] 2.5 mg PO DAILY 01/08/19 01/08/19 Fluticasone [Flonase] 2 spray ADDIE DAILY 01/08/19 01/08/19 Fluticasone/Salmeterol [Advair 1 puffs INH BID 01/08/19 01/08/19 250-50 Diskus] Furosemide 20 mg PO DAILY 01/08/19 01/08/19 Lisinopril 2.5 mg PO DAILY 01/08/19 01/08/19 Metoprolol Succinate 100 mg PO BID 01/08/19 01/08/19 Pantoprazole Sodium [Protonix] 40 mg PO QDAC 01/08/19 01/08/19 Spironolactone 12.5 mg PO DAILY 01/08/19 01/08/19 Tamsulosin [Flomax] 0.5 mg PO DAILY 01/08/19 01/08/19 - Allergies Allergies/Adverse Reactions: Allergies Allergy/AdvReac Type Severity Reaction Status Date / Time hydrocodone Allergy Unknown Verified 01/08/19 11:39 simvastatin [From Zocor] AdvReac Unknown Verified 01/08/19 11:39 Review of Systems - Constitutional Constitutional: reports: Fatigue, Weakness, Weight loss (intentional per patient. unable to quantify). denies: Fever, Chills - Eyes Eyes: reports: Corrective lenses - Ears, Nose & Throat Ears, Nose & Throat: reports: Hearing aids - Cardiovascular Cariovascular: reports: Syncope. denies: Irregular heart rate, Palpitations, Chest pain, Edema - Respiratory Respiratory: reports: Cough (chronic in nature). denies: Sputum production, Wheezing - Gastrointestinal Gastrointestinal: reports: Diarrhea (chronic in nature). denies: Abdominal pain, Abdominal distention, Constipation - Genitourinary Genitourinary: reports: Frequency (improved with the start of flomax). denies: Dysuria, Urgency, Hematuria - Musculoskeletal Musculoskeletal: reports: Back pain, Gout - Neurological Neurological: reports: Dizziness. denies: Memory problems, Seizures - All Other Systems All Other Systems: reports: Reviewed and negative Prior Level of Functionality: Independent Exam - Vital Signs Reviewed Vital Signs: Yes Vital Signs: Vital Signs x48h Temp Pulse Pulse Resp BP BP Pulse Ox 01/08/19 14:53 36.4 C L 67 22 122/62 92 01/08/19 13:25 65 16 132/71 H 97 01/08/19 11:31 36 C L 74 20 93/50 L 98 Vital Signs - 24 hr 01/08/19 01/08/19 01/08/19 11:31 13:25 14:53 Temperature 36 C L 36.4 C L Heart Rate 74 65 Heart Rate [ 67 Brachial] Respiratory 20 16 22 Rate Blood Pressure 93/50 L 132/71 H Blood Pressure 122/62 [Right Brachial artery] O2 Saturation 98 97 92 - Physical Exam General Appearance: positive: No acute distress, Alert Eyes Bilateral: positive: Normal inspection, PERRL, EOMI, Other (wears glasses) ENT: positive: Pharynx nml, Dry mucous membranes, Other (poor dentition. bilateral hearing aids) Neck: positive: Nml inspection, Trachea midline Respiratory: positive: Chest non-tender, No respiratory distress, Breath sounds nml, Other (No tenderness to right rib cage). negative: Wheezes, Rales, Rhonchi Cardiovascular: positive: Regular rate & rhythm, No murmur, No gallop Peripheral Pulses: positive: 2+ Abdomen: positive: Non-tender, No organomegaly, Nml bowel sounds, No distention Back: positive: Nml inspection Skin: positive: Warm, Dry Extremities: positive: Non-tender, Full ROM, Nml appearance, No pedal edema Neurologic/Psychiatric: positive: Oriented x3, CN's nml (2-12), Motor nml, Sensation nml, Mood/affect nml, Weakness Conclusion/Plan - Problem List (1) Near syncope Conclusion/Plan: Patient with multiple near syncope episodes in the recent weeks. He is on multiple medications at home that could prompt these symptoms. Plan: - admit to observation with gentle hydration given h/o cardiomyopathy - hold lasix and spironolactone - obtain orthostatic vital signs (2) Fall from standing Conclusion/Plan: Patient fell while standing yesterday evening. He is complaining of right wrist and right rib pain. 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 BUN 69 today. He is on diuretic therapy. Plan: - gentle hydration - follow-up labs in the morning (4) H/O cardiomyopathy Conclusion/Plan: ECHO available for review from 2016 with cardiomyopathy with EF of 20-25%. An AICD has since been placed. He sees Dr. Juno Su, cardiology. BNP 49 in the ER Plan: - hold furosemide and spironolactone given near syncopal event yesterday e vening. - hold lisinopril and metoprolol for now - obtain ECHO to evaluate LVEF (5) BPH (benign prostatic hyperplasia) Conclusion/Plan: Patient previously on terazosin. This was changed recently to tamsulosin per his PCP. He reports his urinary symptoms have resolved since changing the medication. Plan: - continue home BPH medication (6) Gout Conclusion/Plan: Patient without flare. Plan: - continue home medications Qualifiers: Gout site: unspecified site Gout etiology: unspecified cause Chronicity: chronic (7) Back pain Conclusion/Plan: Patient presents with acute on chronic back pain. Back pain exacerbated by fall last night. No acute process in CT scan completed. Plan: - pain control - PT eval ordered Qualifiers: Back pain location: low back pain Chronicity: unspecified Back pain laterality: midline Sciatica presence: without sciatica Qualified Code(s): M54.5 - Low back pain - Lab Results Lab results reviewed: Yes Fish Bones: 01/08/19 12:15 01/08/19 12:15 - Diagnostic Imaging Results Diagnostic Imaging Results: positive: Final report reviewed Diagnostic Imaging Results Comments: 2-view CXR 01/08/2019: Low lung volumes. No evidence of focal pneumonia. CT Lumbar Spine without Contrast 01/08/2019: 1. Negative for acute fracture and subluxation of lumbar spine 2. Anterior osteophyte spurring and anterior bridging osteophytes T11-L2 3. Bilateral renal cysts - EKG Results EKG Interpreted Independently: Yes EKG Comparison: Changed from prior EKG EKG Findings: Patient is now with atrial sensed v-paced rhythm Core Measures - Anticipated LOS I expect patient to be DC'd or transferred within 96 hours.: Yes - DVT/VTE - Prophylaxis VTE/DVT Device ordered at admit?: Yes
[2019-01-08] MEDS: SODIUM CHLORIDE FLUSH 0.9% 10 ML SYRINGE IVP SCH (15:43)
[2019-01-08] MEDS: BUDESONIDE 0.5 MG/2 ML NEB INH SCH (20:31)
[2019-01-08] MEDS: COLCHICINE 0.6 MG TABLET PO SCH (20:59)
[2019-01-08] MEDS: APIXABAN 5 MG TABLET PO SCH (20:59)
[2019-01-08] MEDS ORDERED: ATORVASTATIN 40 MG TABLET PO SCH (21:00)
[2019-01-08] MEDS: FORMOTEROL FUMARATE NEB 20 MCG/2 ML INH SCH (22:47)
[2019-01-08] MEDS: ACETAMINOPHEN 325 MG TABLET PO PRN (23:57)
[2019-01-09] MEDS: SODIUM CHLORIDE FLUSH 0.9% 10 ML SYRINGE IVP SCH ×2 (02:14→08:32)
[2019-01-09] MEDS: SODIUM CHLORIDE 0.9% 1,000 ML IV SCH (05:26)
[2019-01-09 06:48] LABS: BASOPHILS # (AUTO) 0.1 10^3/uL (0.0-0.1); EOSINOPHILS # (AUTO) 0.4 10^3/uL (0.0-0.7); EOSINOPHILS % (AUTO) 5.9 %; HGB - HEMOGLOBIN 11.4 g/dL (14.0-18.0); LYMPHOCYTES # (AUTO) 1.9 10^3/uL (1.5-3.5); LYMPHOCYTES % (AUTO) 25.4 %; MEAN CORPUSCULAR HEMOGLOBIN 32.7 pg (27.0-31.0); MEAN CORPUSCULAR HGB CONC 33.5 g/dL (32.0-36.0); MEAN CORPUSCULAR VOLUME 97.6 fL (80.0-94.0); MEAN PLATELET VOLUME 9.7 fL (7.4-11.4); MONOCYTES # (AUTO) 0.8 10^3/uL (0.0-1.0); MONOCYTES % (AUTO) 10.7 %; NEUTROPHILS # (AUTO) 4.3 10^3/uL (1.5-6.6); PLT - PLATELET COUNT 154 10^3/uL (130-450); RED BLOOD COUNT 3.48 10^6/uL (4.70-6.10); RED CELL DISTRIBUTION WIDTH 16.1 % (12.0-15.0); WHITE BLOOD COUNT 7.6 x10^3/uL (4.8-10.8)
[2019-01-09 06:54] LABS: CALCIUM 8.8 mg/dL (8.5-10.3); CREATININE 1.9 mg/dL (0.6-1.2)
[2019-01-09] MEDS ORDERED: PANTOPRAZOLE 40 MG TABLET PO SCH (07:00)
[2019-01-09] MEDS: BUDESONIDE 0.5 MG/2 ML NEB INH SCH (07:52)
[2019-01-09] MEDS: FORMOTEROL FUMARATE NEB 20 MCG/2 ML INH SCH (07:52)
[2019-01-09] MEDS ORDERED: FORMOTEROL FUMARATE NEB 20 MCG/2 ML INH SCH (08:01)
[2019-01-09] MEDS: APIXABAN 5 MG TABLET PO SCH (08:32)
[2019-01-09] MEDS: ACETAMINOPHEN 325 MG TABLET PO PRN (08:32)
[2019-01-09] MEDS: COLCHICINE 0.6 MG TABLET PO SCH (08:32)
[2019-01-09] MEDS ORDERED: ASPIRIN 325 MG TABLET PO SCH (09:00)
[2019-01-09] MEDS ORDERED: FLUTICASONE NASAL SPRAY NAS SCH (09:00)
[2019-01-09] MEDS ORDERED: CETIRIZINE 10 MG TABLET PO SCH (09:00)
[2019-01-09] MEDS ORDERED: DULoxetine 20 MG CAPSULE PO SCH (09:00)
[2019-01-09] MEDS ORDERED: ALLOPURINOL 100 MG TABLET PO SCH (09:00)
[2019-01-09] MEDS ORDERED: POLYETHYLENE GLYCOL 3350 17 GM PACKET PO SCH (09:00)
[2019-01-09] MEDS ORDERED: TAMSULOSIN 0.4 MG CAPSULE PO SCH (09:00)
[2019-01-09] MEDS ORDERED: FELODIPINE ER 2.5 MG TABLET PO SCH (09:00)
--- NOTE | 2019-01-09 11:37 | Discharge Plan ---
Discharge Plan Disposition: 01 Home, Self Care Condition: Good Diet: Cardiac Activity Restrictions: No Restrictions Assistance Devices: Walker Additional Instructions or Follow Up instructions: You were admitted to the hospital after a fall. No injuries were sustained during your fall. Your heart function on echocardiogram (ultrasound of your heart) was 55-60% (within normal range). You were given gentle IV fluid hydration. You are on multiple medications that can drop your blood pressure upon standing or with any quick movements. Medication changes include: - stop taking furosemide - stop spironolactone - stop felodipine - decrease metoprolol to 50 mg BID You were evaluated by PT and they recommended a FWW for ambulation at home. Weigh yourself everyday. 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 Make sure to get up slowly and change positions slowly. No Smoking: If you smoke, Please STOP! Call for help. Follow-up with: Randall Severino MD [Primary Care Provider] -
--- NOTE | 2019-01-09 11:37 | DISCHARGE SUMMARY ---
Discharge Summary Admit Date: 01/08/19 Discharge Date: 12/30/18 Discharging Provider: Jigna PLASCENCIA Primary Care Provider: Dr. Randall Severino Code Status: Attempt Resuscitation Condition at Discharge: Good Discharge Disposition: 01 Home, Self Care - DIAGNOSES Admission Diagnoses: (1) Near syncope (2) Fall from standing (3) Acute prerenal azotemia (4) H/O cardiomyopathy (5) BPH (benign prostatic hyperplasia) (6) Gout (7) Back pain Discharge Diagnoses with Status of Each Condition: (1) Near syncope, improved (2) Fall from standing, improved (3) Acute prerenal azotemia, improved (4) H/O cardiomyopathy, stable (5) BPH (benign prostatic hyperplasia), stable (6) Gout, stable (7) Back pain, stable - HPI History of Present Illness: Patient is a 73 year old with a complex medical history. His PMH is significant for cardiomyopathy s/p AICD, BPH, atrial fibrillation, gout, chronic back pain and renal insufficiency. He is followed by his PCP and multiple specialists. He last saw Dr. Severino December 28 -- his terazosin was changed to tamsulosin at that appointment. He was also recently started on duloxetine by Dr. Irene for neuropathy. His supervisor filter assembly is Dr. Juno Su. He presented to the ER today after sustaining a GLF yesterday evening at home. He was marinating steak in the kitchen. When he turned to grab a spice he felt weak and the 'color drained' from him and he fell to the ground landing on his right side. He did not hit his head. He complains of right wrist discomfort and right rib pain. He has chronic low back pain. Patient reports this has happened multiple times in recent past. He reports last week he was sitting and felt a 'wave come over him' as he attempted to stand up. Two weeks ago he reports he was in the bathroom, a 'wave came over' him and he fell. Work-up in the ER revealed BUN 69 with SCr 2.5. BNP 49. WBC wnl. Imaging negative for any acute processes. Given his complex medical comorbidities and cardiomyopathy, he is being admitted under observation for gentle hydration. He has not taken his medications today and he reports that he has not eaten today. Per the son, patient has not been walking too much lately. The patient states that his feet hurt a lot, and it feels like 'pins and needles'. Patient wishes to be a full code. - HOSPITAL COURSE Hospital Course: by problem: (1) Near syncope Patient with multiple near syncope episodes in the recent weeks. He is on multiple medications at home that could prompt these symptoms. His lasix and spironolactone were held. He was given gentle IV hydration. He had postural hypotension. This improved with IV hydration and discontinuation of medications. He was asked to: - stop taking furosemide - stop spironolactone - stop felodipine - decrease metoprolol to 50 mg BID He will follow-up with his PCP and supervisor filter assembly within 1 weeks time to discuss medications changes. He was reminded to change positions slowly. Encouraged to wear MICHAEL hose. (2) Fall from standing Patient fell while standing 01/07/2019. He complained. of right wrist and right rib pain. Imaging negative for acute fracture. He was instructed to splint his right ribs when coughing or taking a deep breath. 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 BUN 69 on admission. He was on diuretic therapy outpatient. He received IV fluid hydration. BUN improved to 60. Follow-up BMP outpatient. (4) H/O cardiomyopathy ECHO available for review from 2016 with cardiomyopathy with EF of 20-25%. An AICD has since been placed. He sees Dr. Juno Su, cardiology. BNP 49 in the ER. Preliminary limited ECHO completed with EF of 55-60%. His lasix and spironolactone were discontinued given his persistent near syncopal events. (5) BPH (benign prostatic hyperplasia) Patient previously on terazosin. This was changed recently to tamsulosin per his PCP. He reports his urinary symptoms have resolved since changing the medication. Tamsulosin was continued. (6) Gout stable. His home medications were continued. (7) Back pain Conclusion/Plan: Patient presents with acute on chronic back pain. Back pain exacerbated by fall last night. No acute process in CT scan completed. PT was consulted and he was able to ambulate with a FWW without difficulty. PT recommends patient obtain a FWW upon discharge. - ALLERGIES Allergies/Adverse Reactions: Allergies Allergy/AdvReac Type Severity Reaction Status Date / Time hydrocodone Allergy Unknown Verified 01/08/19 11:39 simvastatin [From Zocor] AdvReac Unknown Verified 01/08/19 11:39 - MEDICATIONS Home Medications: Ambulatory Orders Medication Instructions Recorded Confirmed Allopurinol 300 mg PO DAILY 01/08/19 01/08/19 Apixaban [Eliquis] 5 mg PO BID 01/08/19 01/08/19 Aspirin 325 mg PO DAILY 01/08/19 01/08/19 Atorvastatin Calcium 40 mg PO QPM 01/08/19 01/08/19 Cetirizine HCl 10 mg PO DAILY 01/08/19 01/08/19 Colchicine [Colcrys] 0.6 mg PO BID 01/08/19 01/08/19 Duloxetine HCl 20 mg PO DAILY 01/08/19 01/08/19 Fluticasone [Flonase] 2 spray ADDIE DAILY 01/08/19 01/08/19 Fluticasone/Salmeterol [Advair 1 puffs INH BID 01/08/19 01/08/19 250-50 Diskus] Lisinopril 2.5 mg PO DAILY 01/08/19 01/08/19 Pantoprazole Sodium [Protonix] 40 mg PO QDAC 01/08/19 01/08/19 Tamsulosin [Flomax] 0.4 mg PO DAILY 01/08/19 01/08/19 Metoprolol Succinate 50 mg PO BID #0 01/09/19 01/08/19 - PHYSICAL EXAM AT DISCHARGE General Appearance: positive: No acute distress, Alert Eyes Bilateral: positive: Normal inspection, PERRL, EOMI ENT: positive: ENT inspection nml, Pharynx nml, No signs of dehydration Neck: positive: Nml inspection, Trachea midline Respiratory: positive: Chest non-tender, No respiratory distress, Breath sounds nml. negative: Wheezes, Rales, Rhonchi Cardiovascular: positive: Regular rate & rhythm, No murmur, No gallop Peripheral Pulses: positive: 2+ Abdomen: positive: Non-tender, No organomegaly, Nml bowel sounds, No distention Skin: positive: Warm, Dry Extremities: positive: Non-tender, Full ROM, Nml appearance Neurologic/Psychiatric: positive: Oriented x3, CN's nml (2-12), Motor nml, Sensation nml, Mood/affect nml - LABS Result Diagrams: 01/09/19 06:32 01/09/19 06:32 Other Lab Results: Laboratory Tests 01/08/19 01/08/19 01/08/19 12:15 12:15 12:15 WBC 8.5 RBC 3.86 L Hgb 12.6 L Hct 37.5 L MCV 97.1 H MCH 32.6 H MCHC 33.6 RDW 16.3 H Plt Count 181 MPV 9.6 Neut # (Auto) 5.7 Lymph # (Auto) 1.3 L Redwood # (Auto) 0.9 Eos # (Auto) 0.4 Baso # (Auto) 0.2 H Absolute Nucleated RBC 0.00 Nucleated RBC % 0.0 Sodium 129 L Potassium 4.6 Chloride 102 Carbon Dioxide 19 L Anion Gap 8.0 BUN 69 H Creatinine 2.4 H Estimated GFR (MDRD) 27 L Glucose 107 H Calcium 9.0 Total Bilirubin 1.1 H AST 33 ALT 37 Alkaline Phosphatase 132 H Total Creatine Kinase 121 CK-MB (CK-2) 2.5 Troponin I < 0.04 B-Natriuretic Peptide Total Protein 7.9 Albumin 4.1 Globulin 3.8 Albumin/Globulin Ratio 1.1 Lipase 39 01/08/19 01/09/19 01/09/19 12:15 06:32 06:32 WBC 7.6 RBC 3.48 L Hgb 11.4 L Hct 34.0 L MCV 97.6 H MCH 32.7 H MCHC 33.5 RDW 16.1 H Plt Count 154 MPV 9.7 Neut # (Auto) 4.3 Lymph # (Auto) 1.9 Redwood # (Auto) 0.8 Eos # (Auto) 0.4 Baso # (Auto) 0.1 Absolute Nucleated RBC 0.00 Nucleated RBC % 0.1 Sodium 131 L Potassium 4.3 Chloride 106 Carbon Dioxide 18 L Anion Gap 7.0 BUN 60 H Creatinine 1.9 H Estimated GFR (MDRD) 35 L Glucose 99 Calcium 8.8 Total Bilirubin AST ALT Alkaline Phosphatase Total Creatine Kinase CK-MB (CK-2) Troponin I B-Natriuretic Peptide 49 Total Protein Albumin Globulin Albumin/Globulin Ratio Lipase - DIAGNOSTIC IMAGING Diagnostic Imaging Results: Prelim report reviewed (Prelim ECHO report with LVEF 55-60%), Final report reviewed Diagnostic Imaging Results Comments: 2-view CXR 01/08/2019: Low lung volumes. No evidence of focal pneumonia. CT Lumbar Spine without Contrast 01/08/2019: 1. Negative for acute fracture and subluxation of lumbar spine 2. Anterior osteophyte spurring and anterior bridging osteophytes T11-L2 3. Bilateral renal cysts - FOLLOW UP Follow Up: Follow-up with PCP within 1 week of discharge. Follow-up with all of providers as previously scheduled. - TIME SPENT Time Spent in Discharge (Minutes): 60
[2019-01-09 13:13] VITALS: BP 117/61
== END 2019-01-09 13:40 | disposition home or self-care (01) ==
LOC: ED 11:24 → MS2 13:52
PROVIDERS: ADMIT Nurse Practitioner; ATTEND Nurse Practitioner
DX: R55 Syncope and collapse (principal); W18.39XA Other fall on same level, initial encounter; Z91.81 History of falling; Y93.G3 Activity, cooking and baking; Y92.010 Kitchen of single-family (private) house as the place of occurrence of the external cause; R79.89 Other specified abnormal findings of blood chemistry; I42.9 Cardiomyopathy, unspecified; N40.0 Benign prostatic hyperplasia without lower urinary tract symptoms; I12.9 Hypertensive chronic kidney disease with stage 1 through stage 4 chronic kidney disease, or unspecified chronic kidney disease; N18.9 Chronic kidney disease, unspecified; M10.9 Gout, unspecified; M54.9 Dorsalgia, unspecified; M25.531 Pain in right wrist; R07.81 Pleurodynia; Z95.810 Presence of automatic (implantable) cardiac defibrillator; G89.29 Other chronic pain; I48.91 Unspecified atrial fibrillation; Z79.01 Long term (current) use of anticoagulants
CPT/HCPCS: 36415; 71046; 72131; 80048; 80053; 82550; 82553; 83690; 83880; 84484; 85025; 93005; 93308; 94640; 96360; 96361; 97162; 99284; 99285; A9270; G0378; J7626

== ENCOUNTER 2019-05-04 13:35 | Outpatient (CLI) | payer MEDICARE, OTHER ==
[2019-05-04 18:31] LABS: BASOPHILS # (AUTO) 0.1 10^3/uL (0.0-0.1); BASOPHILS % (AUTO) 1.2 %; EOSINOPHILS # (AUTO) 0.6 10^3/uL (0.0-0.7); EOSINOPHILS % (AUTO) 7.9 %; HGB - HEMOGLOBIN 11.8 g/dL (14.0-18.0); LYMPHOCYTES # (AUTO) 1.6 10^3/uL (1.5-3.5); LYMPHOCYTES % (AUTO) 19.8 %; MEAN CORPUSCULAR HEMOGLOBIN 31.5 pg (27.0-31.0); MEAN CORPUSCULAR HGB CONC 32.2 g/dL (32.0-36.0); MEAN CORPUSCULAR VOLUME 97.6 fL (80.0-94.0); MEAN PLATELET VOLUME 11.7 fL (7.4-11.4); MONOCYTES # (AUTO) 0.7 10^3/uL (0.0-1.0); MONOCYTES % (AUTO) 8.7 %; NEUTROPHILS # (AUTO) 4.9 10^3/uL (1.5-6.6); NEUTROPHILS % (AUTO) 62.1 %; PLT - PLATELET COUNT 232 10^3/uL (130-450); RED BLOOD COUNT 3.75 10^6/uL (4.70-6.10); RED CELL DISTRIBUTION WIDTH 14.1 % (12.0-15.0); WHITE BLOOD COUNT 7.8 x10^3/uL (4.8-10.8)
[2019-05-04 18:37] LABS: BILIRUBIN,URINE NEGATIVE (NEGATIVE); GLUCOSE, URINE (UA) NEGATIVE (NEGATIVE); KETONES,URINE (UA) NEGATIVE (NEGATIVE); LEUKOCYTE ESTERASE, URINE NEGATIVE (NEGATIVE); NITRITE,URINE NEGATIVE (NEGATIVE); OCCULT BLOOD,URINE TRACE-INTA (NEGATIVE); PROTEIN,URINE 100 mg/dL (NEGATIVE); UROBILINOGEN,URINE 0.2 (NORMAL) E.U./dL (NORMAL)
[2019-05-04 18:41] LABS: PROTEIN/CREATININE RATIO,URINE 1.5 (<=0.2)
[2019-05-04 18:56] LABS: ALBUMIN 3.6 g/dL (3.2-5.5); ALBUMIN/GLOBULIN RATIO 0.9 (1.0-2.2); BILIRUBIN,TOTAL 0.9 mg/dL (0.2-1.0); CREATININE 1.4 mg/dL (0.6-1.2); TOTAL PROTEIN 7.6 g/dL (6.7-8.2)
[2019-05-04 19:47] LABS: CLARITY,URINE CLEAR (CLEAR); RBC,URINE 0-5 /HPF (0-5); SQUAMOUS EPITHELIAL CELL,UR FEW Squamous (<= Few)
[2019-05-04 19:48] LABS: BACTERIA,URINE None Seen /HPF (None Seen)
== END 2019-05-04 23:59 | disposition home or self-care (01) ==
LOC: LAB.WCP 13:35
PROVIDERS: ATTEND Family Medicine
DX: R42 Dizziness and giddiness (principal); I25.10 Atherosclerotic heart disease of native coronary artery without angina pectoris; N18.3 Chronic kidney disease, stage 3 (moderate)
CPT/HCPCS: 36415; 80053; 81001; 82570; 83970; 84156; 84443; 85025; 85651

== ENCOUNTER 2019-06-28 08:00 | Outpatient (CLI) | payer MEDICARE, OTHER ==
--- NOTE | 2019-06-28 15:13 | XRAY Report ---
Reason: HEMOPTYSIS Procedure Date: 06/28/2019 Accession Number: [id number] / [id number] Procedure: WCP - Chest 2 View X-Ray CPT Code: 00499 FULL RESULT: EXAM: CHEST RADIOGRAPHY EXAM DATE: 06/28/2019 09:36 AM. CLINICAL HISTORY: HEMOPTYSIS. COMPARISON: CHEST 2 VIEW 01/08/2019 12:58 PM CHEST 1 VIEW 06/01/2017 9:10 PM CHEST 2 VIEW PA/LAT 06/23/2015 8:50 AM. TECHNIQUE: 2 views. FINDINGS: Lungs/Pleura: No focal opacities evident. No pleural effusion. No pneumothorax. Normal volumes. Elevation medial right diaphragm Mediastinum: Mild cardiac enlargement. Other: Triple lead left subclavian pacer/defibrillator stable. IMPRESSION: Clear lungs. Mild cardiac enlargement. No acute findings compared with 01/08/2019. [facility]
== END 2019-06-28 23:59 | disposition home or self-care (01) ==
LOC: DI.WCP 08:00 → EDSTATUS 13:27 → DI.WCP 23:59
PROVIDERS: ATTEND Family Medicine
DX: R04.2 Hemoptysis (principal); I51.7 Cardiomegaly
CPT/HCPCS: 71046

== ENCOUNTER 2019-12-05 08:00 | Outpatient (CLI) | payer MEDICARE, OTHER ==
[2019-12-05 19:19] LABS: CALCIUM 8.3 mg/dL (8.5-10.3); CREATININE 1.4 mg/dL (0.6-1.2)
== END 2019-12-05 23:59 | disposition home or self-care (01) ==
LOC: LAB.WCP 08:00
PROVIDERS: ATTEND Family Medicine
DX: I12.9 Hypertensive chronic kidney disease with stage 1 through stage 4 chronic kidney disease, or unspecified chronic kidney disease (principal); N18.3 Chronic kidney disease, stage 3 (moderate)
CPT/HCPCS: 36415; 80048

== ENCOUNTER → 2020-01-02 | Outpatient (CLI) | payer MEDICARE, OTHER ==
[2020-01-02 12:43] LABS: CALCIUM 8.6 mg/dL (8.5-10.3); CREATININE 1.6 mg/dL (0.6-1.2)
== END ==
LOC: LAB.WCP 10:26
PROVIDERS: ATTEND Family Medicine
DX: I10 Essential (primary) hypertension (principal)
CPT/HCPCS: 36415; 80048

== ENCOUNTER 2020-04-04 09:19 | Outpatient (CLI) | payer MEDICARE, OTHER ==
[2020-04-04 12:12] LABS: CALCIUM 8.5 mg/dL (8.5-10.3); CREATININE 1.7 mg/dL (0.6-1.2)
== END 2020-04-04 23:59 | disposition home or self-care (01) ==
LOC: LAB.WCP 09:19
PROVIDERS: ATTEND Family Medicine
DX: I10 Essential (primary) hypertension (principal)
CPT/HCPCS: 36415; 80048

== ENCOUNTER 2020-07-09 10:20 | Outpatient (CLI) | payer MEDICARE, OTHER ==
[2020-07-09 12:26] LABS: CALCIUM 8.3 mg/dL (8.5-10.3); CREATININE 1.7 mg/dL (0.6-1.2)
[2020-07-09 13:09] LABS: CREATININE,URINE 153.8 mg/dL; MICROALBUM/CREATININE RATIO,UR 756.2 ug/mg (<30.0); MICROALBUMIN,URINE 116.3 mg/dL (0-300.0)
[2020-07-09 14:19] LABS: HEMOGLOBIN A1c% 6.1 % (4.27-6.07)
== END 2020-07-09 23:59 | disposition home or self-care (01) ==
LOC: LAB.WCP 10:20
PROVIDERS: ATTEND Family Medicine
DX: I12.9 Hypertensive chronic kidney disease with stage 1 through stage 4 chronic kidney disease, or unspecified chronic kidney disease (principal); N18.3 Chronic kidney disease, stage 3 (moderate); R73.9 Hyperglycemia, unspecified
CPT/HCPCS: 36415; 80048; 82043; 82570; 83036

== ENCOUNTER 2020-09-21 09:16 | Emergency (ER) | payer MEDICARE, OTHER ==
[2020-09-21] MEDS ORDERED: OXYMETAZOLINE HCL 100 SPRAYS BOTTLE NAS STA (09:42)
[2020-09-21] MEDS ORDERED: TRANEXAMIC ACID 1,000 MG/10 ML VIAL NAS STA (09:42)
--- NOTE | 2020-09-21 10:07 | ED Physician Documentation ---
History of Present Illness - Stated complaint Stated Complaint: NOSE BLEED - Chief complaint Chief Complaint: Heent - History obtained from History obtained from: Patient - History of Present Illness Timing: Yesterday Pain level max: 0 Pain level now: 0 - Additonal information Additional information: 75-year-old male presents to the emergency department with a nosebleed that started yesterday. He states that it stopped, he sneezed this morning the clot broke loose and it began to bleed again. He is on Eliquis at home. Better with pressure, nothing makes it worse. No headaches. No fevers. No trauma. Review of Systems Constitutional: denies: Fever, Chills Nose: denies: Rhinorrhea / runny nose, Congestion Throat: denies: Sore throat Cardiac: denies: Chest pain / pressure Respiratory: denies: Cough, Wheezing Skin: denies: Rash Musculoskeletal: denies: Neck pain, Back pain Neurologic: denies: Headache PD PAST MEDICAL HISTORY - Past Medical History Cardiovascular: Hypertension, High cholesterol, Coronary artery disease, Peripheral Vascular Disease, Other Respiratory: Shortness of breath, Other Neuro: Peripheral neuropathy Endocrine/Autoimmune: None GI: GERD, Colon polyps, Chronic diarrhea : Benign prostate hypertrophy, Renal insuffiency HEENT: Chronic sinusitis, Chronic hearing loss, Other Psych: Anxiety Musculoskeletal: Osteoarthritis, Gout, Chronic back pain Derm: Other - Past Surgical History Past Surgical History: Yes Ortho: Arthroscopic surgery Cardiovascular: Coronary stent, Cardiac catheterization HEENT: Cataracts, Tonsil/Adenoidectomy - Present Medications Home Medications: Ambulatory Orders Medication Instructions Recorded Confirmed Apixaban [Eliquis] 5 mg PO BID 01/08/19 01/08/19 Aspirin 325 mg PO DAILY 01/08/19 01/08/19 Atorvastatin Calcium 40 mg PO QPM 01/08/19 01/08/19 Cetirizine HCl 10 mg PO DAILY 01/08/19 01/08/19 Colchicine [Colcrys] 0.6 mg PO BID 01/08/19 01/08/19 Duloxetine HCl 20 mg PO DAILY 01/08/19 01/08/19 Fluticasone [Flonase] 2 spray ADDIE DAILY 01/08/19 01/08/19 Fluticasone/Salmeterol [Advair 1 puffs INH BID 01/08/19 01/08/19 250-50 Diskus] Pantoprazole Sodium [Protonix] 40 mg PO QDAC 01/08/19 01/08/19 Tamsulosin [Flomax] 0.4 mg PO DAILY 01/08/19 01/08/19 allopurinoL [Allopurinol] 300 mg PO DAILY 01/08/19 01/08/19 lisinopriL [Lisinopril] 2.5 mg PO DAILY 01/08/19 01/08/19 Metoprolol Succinate 50 mg PO BID #0 01/09/19 01/08/19 Cephalexin [Keflex] 500 mg PO Q6H #20 capsule 09/21/20 - Allergies Allergies/Adverse Reactions: Allergies Allergy/AdvReac Type Severity Reaction Status Date / Time hydrocodone Allergy Unknown Verified 09/21/20 09:34 simvastatin [From Zocor] AdvReac Unknown Verified 09/21/20 09:34 - Social History Does the pt smoke?: No Smoking Status: Never smoker Does the pt drink ETOH?: No Does the pt have substance abuse?: No - Immunizations Immunizations are current?: Yes - POLST Patient has POLST: No PD ED PE NORMAL - Vitals Vital signs reviewed: Yes - General General: Alert and oriented X 3, No acute distress - HEENT HEENT: Moist mucous membranes - Neck Neck: Supple, no meningeal sign, Other (Bleeding from the right nare. Unable to visualize source.) - Cardiac Cardiac: RRR - Respiratory Respiratory: No respiratory distress, Clear bilaterally - Derm Derm: Warm and dry - Neuro Neuro: Alert and oriented X 3 Results - Vitals Vitals: Vital Signs - 24 hr 09/21/20 09/21/20 09:26 11:43 Temperature 36.8 C Heart Rate 78 72 Respiratory 18 18 Rate Blood Pressure 180/86 H 177/84 H O2 Saturation 97 97 Oxygen O2 Source Room air Procedures - Epistaxis Site: Right, Cannot determine Preparation: Clots removed, Afrin, Clamp / pressure applied, Other (TXA) Treatment: Packing inserted Other: Observed - no bleeding, Pt tolerated well, O2 sat WNL, Antibiotics prescribed PD MEDICAL DECISION MAKING - ED course Complexity details: re-evaluated patient, considered differential, d/w patient ED course: Patient with epistaxis today. Did not resolve with Afrin and tranexamic acid. Packing was inserted and the bleeding resolved. We will leave this in place for the next several days as he is on Eliquis. He is on Eliquis for A. fib. Patient counseled regarding signs and symptoms for which I believe and urgent re-evaluation would be necessary. Patient with good understanding of and agreement to plan and is comfortable going home at this time This document was made in part using voice recognition software. While efforts are made to proofread this document, sound alike and grammatical errors may occur. Departure - Departure Disposition: 01 Home, Self Care Clinical Impression: Epistaxis Condition: Good Instructions: ED Nosebleed Follow-Up: Randall Severino MD [Primary Care Provider] - Within 3 Days Prescriptions: Cephalexin [Keflex] 500 mg PO Q6H #20 capsule Comments: The packing can be removed in 2-3 days either here or with your doctor. You can remove it yourself, but you may have more bleeding when you remove it. Return if you worsen. Take the antibiotics until gone. Discharge Date/Time: 09/21/20 11:46
[2020-09-21 11:44] VITALS: BP 177/84
== END 2020-09-21 11:46 | disposition home or self-care (01) ==
LOC: ED 09:16
DX: R04.0 Epistaxis (principal); I10 Essential (primary) hypertension; I48.91 Unspecified atrial fibrillation; Z79.01 Long term (current) use of anticoagulants; Z79.82 Long term (current) use of aspirin
CPT/HCPCS: 30901; 99282; 99284; A9270

== ENCOUNTER 2021-05-01 08:00 | Outpatient (CLI) | payer MEDICARE, OTHER ==
[2021-05-01 13:10] LABS: BASOPHILS # (AUTO) 0.1 10^3/uL (0.0-0.1); BASOPHILS % (AUTO) 1.3 %; EOSINOPHILS # (AUTO) 0.5 10^3/uL (0.0-0.7); EOSINOPHILS % (AUTO) 7.1 %; HCT - HEMATOCRIT 36.9 % (42.0-52.0); HGB - HEMOGLOBIN 11.6 g/dL (14.0-18.0); LYMPHOCYTES # (AUTO) 2.1 10^3/uL (1.5-3.5); LYMPHOCYTES % (AUTO) 29.6 %; MEAN CORPUSCULAR HEMOGLOBIN 28.7 pg (27.0-31.0); MEAN CORPUSCULAR HGB CONC 31.4 g/dL (32.0-36.0); MEAN CORPUSCULAR VOLUME 91.3 fL (80.0-94.0); MEAN PLATELET VOLUME 12.4 fL (7.4-11.4); MONOCYTES # (AUTO) 0.8 10^3/uL (0.0-1.0); NEUTROPHILS # (AUTO) 3.6 10^3/uL (1.5-6.6); NEUTROPHILS % (AUTO) 50.7 %; PLT - PLATELET COUNT 224 10^3/uL (130-450); RED BLOOD COUNT 4.04 10^6/uL (4.70-6.10); RED CELL DISTRIBUTION WIDTH 15.7 % (12.0-15.0)
[2021-05-01 14:06] LABS: ALBUMIN 3.9 g/dL (3.2-5.5); BILIRUBIN,TOTAL 0.7 mg/dL (0.2-1.0); CALCIUM 9.1 mg/dL (8.5-10.3); POTASSIUM 3.9 mmol/L (3.5-5.0)
== END 2021-05-01 23:59 | disposition home or self-care (01) ==
LOC: LAB.WCP 08:00
PROVIDERS: ATTEND Physician Assistant Medical
DX: R42 Dizziness and giddiness (principal)
CPT/HCPCS: 36415; 80053; 85025

== ENCOUNTER 2021-07-31 07:00 | Outpatient (CLI) | payer MEDICARE, OTHER ==
[2021-07-31 18:11] LABS: BILIRUBIN,URINE NEGATIVE (NEGATIVE); GLUCOSE, URINE (UA) NEGATIVE (NEGATIVE); KETONES,URINE (UA) NEGATIVE (NEGATIVE); LEUKOCYTE ESTERASE, URINE NEGATIVE (NEGATIVE); NITRITE,URINE NEGATIVE (NEGATIVE); OCCULT BLOOD,URINE NEGATIVE (NEGATIVE); PROTEIN,URINE 30 mg/dL (NEGATIVE); UROBILINOGEN,URINE 1 (NORMAL) E.U./dL (NORMAL)
[2021-07-31 18:32] LABS: BACTERIA,URINE None Seen /HPF (None Seen); CLARITY,URINE CLEAR (CLEAR); RBC,URINE 0-5 /HPF (0-5); SQUAMOUS EPITHELIAL CELL,UR RARE Squamous (<= Few); WBC,URINE 0-3 /HPF (0-3)
== END 2021-07-31 23:59 | disposition home or self-care (01) ==
LOC: LAB 07:00
PROVIDERS: ATTEND Family Medicine
DX: N32.81 Overactive bladder (principal); N40.1 Benign prostatic hyperplasia with lower urinary tract symptoms
CPT/HCPCS: 81001; 87086

== ENCOUNTER 2021-10-01 08:00 | Outpatient (CLI) | payer MEDICARE, OTHER ==
[2021-10-01 18:11] LABS: BILIRUBIN,URINE NEGATIVE (NEGATIVE); GLUCOSE, URINE (UA) NEGATIVE (NEGATIVE); KETONES,URINE (UA) NEGATIVE (NEGATIVE); LEUKOCYTE ESTERASE, URINE NEGATIVE (NEGATIVE); NITRITE,URINE NEGATIVE (NEGATIVE); OCCULT BLOOD,URINE NEGATIVE (NEGATIVE); PROTEIN,URINE 30 mg/dL (NEGATIVE); UROBILINOGEN,URINE 0.2 (NORMAL) E.U./dL (NORMAL)
[2021-10-01 18:20] LABS: BASOPHILS # (AUTO) 0.1 10^3/uL (0.0-0.1); EOSINOPHILS # (AUTO) 0.4 10^3/uL (0.0-0.7); EOSINOPHILS % (AUTO) 3.9 %; HCT - HEMATOCRIT 36.7 % (42.0-52.0); HGB - HEMOGLOBIN 11.5 g/dL (14.0-18.0); LYMPHOCYTES # (AUTO) 1.4 10^3/uL (1.5-3.5); LYMPHOCYTES % (AUTO) 15.9 %; MEAN CORPUSCULAR HEMOGLOBIN 27.5 pg (27.0-31.0); MEAN CORPUSCULAR HGB CONC 31.3 g/dL (32.0-36.0); MEAN CORPUSCULAR VOLUME 87.8 fL (80.0-94.0); MEAN PLATELET VOLUME 11.7 fL (7.4-11.4); MONOCYTES # (AUTO) 0.7 10^3/uL (0.0-1.0); MONOCYTES % (AUTO) 7.6 %; NEUTROPHILS # (AUTO) 6.4 10^3/uL (1.5-6.6); NEUTROPHILS % (AUTO) 71.2 %; PLT - PLATELET COUNT 267 10^3/uL (130-450); RED BLOOD COUNT 4.18 10^6/uL (4.70-6.10); RED CELL DISTRIBUTION WIDTH 15.5 % (12.0-15.0)
[2021-10-01 18:22] LABS: BACTERIA,URINE None Seen /HPF (None Seen); CLARITY,URINE CLEAR (CLEAR); RBC,URINE 0-5 /HPF (0-5); SQUAMOUS EPITHELIAL CELL,UR RARE Squamous (<= Few); WBC,URINE 0-3 /HPF (0-3)
[2021-10-01 18:41] LABS: ALBUMIN 3.7 g/dL (3.2-5.5); ALBUMIN/GLOBULIN RATIO 0.9 (1.0-2.2); ALKALINE PHOSPHATASE 101 IU/L (42-121); ALT ALANINE AMINOTRANSFERASE 14 IU/L (10-60); AST ASPARTATE AMINOTRANSFERASE 20 IU/L (10-42); BILIRUBIN,TOTAL 0.9 mg/dL (0.2-1.0); BUN - BLOOD UREA NITROGEN 27 mg/dL (6-20); CALCIUM 9.1 mg/dL (8.5-10.3); CARBON DIOXIDE - CO2 27 mmol/L (21-32); CHLORIDE 100 mmol/L (101-111); CHOLESTEROL 131 mg/dL; CREATININE 1.5 mg/dL (0.6-1.2); GFR - MDRD 45 (>89); GLUCOSE 121 mg/dL (70-100); HDL CHOLESTEROL 44 mg/dL; LDL CHOLESTEROL,CALCULATED 61 mg/dL; LDL/HDL RATIO 1.4 (<3.6); POTASSIUM 3.8 mmol/L (3.5-5.0); SODIUM 138 mmol/L (135-145); TOTAL PROTEIN 7.8 g/dL (6.7-8.2); TRIGLYCERIDES 131 mg/dL; VLDL CHOLESTEROL 26 mg/dL
[2021-10-01 21:21] LABS: ESTIMATED AVERAGE GLUCOSE 128 mg/dL (70-100); HEMOGLOBIN A1c% 6.1 % (4.27-6.07)
== END 2021-10-01 23:59 | disposition home or self-care (01) ==
LOC: LAB.WCP 08:00
PROVIDERS: ATTEND Family Medicine
DX: I12.9 Hypertensive chronic kidney disease with stage 1 through stage 4 chronic kidney disease, or unspecified chronic kidney disease (principal); I25.10 Atherosclerotic heart disease of native coronary artery without angina pectoris; N18.30 Chronic kidney disease, stage 3 unspecified; R73.01 Impaired fasting glucose
CPT/HCPCS: 36415; 80053; 80061; 81001; 83036; 83721; 85025

== ENCOUNTER 2022-03-04 08:00 | Outpatient (CLI) | payer MEDICARE, OTHER | END 2022-03-05 14:06 | disposition home or self-care (01) | LOC: LAB.N 08:00 | PROVIDERS: ATTEND Registered Nurse | DX: J18.9 Pneumonia, unspecified organism (principal); Z20.822 Contact with and (suspected) exposure to COVID-19 ==

== ENCOUNTER 2022-03-17 15:36 | Outpatient (CLI) | payer MEDICARE, OTHER ==
--- NOTE | 2022-03-17 16:58 | XRAY Report ---
PROCEDURE: Chest 2 View X-Ray INDICATIONS: COUGH TECHNIQUE: 2 view(s) of the chest. COMPARISON: None. FINDINGS: Surgical changes and devices: Left-sided pacer. Lungs and pleura: No pleural effusions or pneumothorax. Lungs are clear. Mediastinum: Mediastinal contours are normal. Heart size is enlarged. Bones and chest wall: No suspicious bony abnormalities. Soft tissues appear unremarkable. IMPRESSION: 1. Cardiomegaly. 2. No acute process. Reviewed by: Dallas Chicas MD on 03/17/2022 4:57 PM PDT Approved by: Dallas Chicas MD on 03/17/2022 4:57 PM PDT Station ID: [id number]
== END 2022-03-17 15:37 | disposition home or self-care (01) ==
LOC: DI.N 15:36
PROVIDERS: ATTEND Family Medicine
DX: R05.9 Cough, unspecified (principal); I51.7 Cardiomegaly

== ENCOUNTER 2022-04-22 11:52 | Outpatient (CLI) | payer MEDICARE, OTHER ==
[2022-04-22 17:45] LABS: CREATININE 1.6 mg/dL (0.6-1.2); HCT - HEMATOCRIT 31.1 % (42.0-52.0); HGB - HEMOGLOBIN 9.5 g/dL (14.0-18.0); POTASSIUM 4.3 mmol/L (3.5-5.0)
== END 2022-04-22 11:53 | disposition home or self-care (01) ==
LOC: LAB.N 11:52
PROVIDERS: ATTEND Internal Medicine Nephrology
DX: N05.9 Unspecified nephritic syndrome with unspecified morphologic changes (principal); D64.9 Anemia, unspecified
CPT/HCPCS: 36415; 80048; 85014; 85018

== ENCOUNTER 2022-05-22 13:22 | Outpatient (CLI) | payer MEDICARE, OTHER ==
[2022-05-22 18:01] LABS: BASOPHILS # (AUTO) 0.1 10^3/uL (0.0-0.1); BASOPHILS % (AUTO) 0.9 %; EOSINOPHILS # (AUTO) 0.3 10^3/uL (0.0-0.7); EOSINOPHILS % (AUTO) 4.3 %; HCT - HEMATOCRIT 29.6 % (42.0-52.0); HGB - HEMOGLOBIN 9.1 g/dL (14.0-18.0); LYMPHOCYTES % (AUTO) 13.6 %; MEAN CORPUSCULAR HEMOGLOBIN 25.1 pg (27.0-31.0); MEAN CORPUSCULAR HGB CONC 30.7 g/dL (32.0-36.0); MEAN CORPUSCULAR VOLUME 81.8 fL (80.0-94.0); MEAN PLATELET VOLUME 11.2 fL (7.4-11.4); MONOCYTES # (AUTO) 0.6 10^3/uL (0.0-1.0); MONOCYTES % (AUTO) 7.7 %; NEUTROPHILS # (AUTO) 5.4 10^3/uL (1.5-6.6); NEUTROPHILS % (AUTO) 73.2 %; PLT - PLATELET COUNT 282 10^3/uL (130-450); RED BLOOD COUNT 3.62 10^6/uL (4.70-6.10); RED CELL DISTRIBUTION WIDTH 18.1 % (12.0-15.0); WHITE BLOOD COUNT 7.4 x10^3/uL (4.8-10.8)
[2022-05-22 18:40] LABS: ALBUMIN/GLOBULIN RATIO 0.7 (1.0-2.2); ALKALINE PHOSPHATASE 77 IU/L (42-121); ALT ALANINE AMINOTRANSFERASE 19 IU/L (10-60); AST ASPARTATE AMINOTRANSFERASE 23 IU/L (10-42); BILIRUBIN,TOTAL 0.8 mg/dL (0.2-1.0); BUN - BLOOD UREA NITROGEN 37 mg/dL (6-20); CALCIUM 8.7 mg/dL (8.5-10.3); CARBON DIOXIDE - CO2 28 mmol/L (21-32); CHLORIDE 100 mmol/L (101-111); CHOL/HDL RATIO 2.7 (<5.0); CHOLESTEROL 98 mg/dL; CREATININE 1.8 mg/dL (0.6-1.2); GFR - MDRD 37 (>89); GLUCOSE 128 mg/dL (70-100); HDL CHOLESTEROL 36 mg/dL; LDL CHOLESTEROL,CALCULATED 49 mg/dL; LDL/HDL RATIO 1.4 (<3.6); POTASSIUM 3.7 mmol/L (3.5-5.0); SODIUM 136 mmol/L (135-145); TOTAL PROTEIN 7.5 g/dL (6.7-8.2); TRIGLYCERIDES 67 mg/dL; VLDL CHOLESTEROL 13 mg/dL
[2022-05-23 09:25] LABS: ESTIMATED AVERAGE GLUCOSE 128 mg/dL (70-100); HEMOGLOBIN A1c% 6.1 % (4.27-6.07)
== END 2022-05-22 13:23 | disposition home or self-care (01) ==
LOC: LAB.N 13:22
PROVIDERS: ATTEND Nurse Practitioner Family
DX: I25.10 Atherosclerotic heart disease of native coronary artery without angina pectoris (principal); R73.01 Impaired fasting glucose
CPT/HCPCS: 36415; 80053; 80061; 83036; 83721; 85025

== ENCOUNTER 2022-05-25 12:46 | Outpatient (CLI) | payer MEDICARE, OTHER ==
--- NOTE | 2022-05-25 16:11 | XRAY Report ---
PROCEDURE: Chest 2 View X-Ray INDICATIONS: HEMOPTYSIS TECHNIQUE: 2 view(s) of the chest. COMPARISON: 2 views of the chest dated 03/17/2022. FINDINGS: Surgical changes and devices: Cardiac defibrillator is unchanged. Lungs and pleura: New airspace opacities are present at the right lung base when compared with the p rior study from 03/17/2022. The left lung is clear. No pleural effusion or pneumothorax. Mediastinum: Mediastinal contours are normal. Heart size is normal. Bones and chest wall: No suspicious bony abnormalities. Soft tissues appear unremarkable. IMPRESSION: New right basilar airspace opacities suspicious for aspiration/infection. However, neopl asm cannot be excluded and follow-up to resolution is recommended. Reviewed by: Keturah Martinez MD on 05/25/2022 4:09 PM PDT Approved by: Keturah Martinez MD on 05/25/2022 4:09 PM PDT Station ID: [id number]
== END 2022-05-25 12:47 | disposition home or self-care (01) ==
LOC: DI.N 12:46
PROVIDERS: ATTEND Nurse Practitioner Family
DX: R91.8 Other nonspecific abnormal finding of lung field (principal); R04.2 Hemoptysis

== ENCOUNTER 2022-07-13 23:26 | Emergency (ER) | payer MEDICARE, OTHER ==
--- NOTE | 2022-07-14 00:22 | ED Physician Documentation ---
History of Present Illness - Stated complaint Stated Complaint: COUGH,CHILLS,FEVER - Chief complaint Chief Complaint: General - History obtained from History obtained from: Patient - History of Present Illness Timing: Today Pain level max: 0 Pain level now: 0 Improved by: no amelioraing factors Worsened by: no exacerbating factors - Additonal information Additional information: c/o chills, cough, fever with Tmax 100.5, generalized headache. Symptoms since this morning and have been persistent throughout the day. Review of Systems Constitutional: reports: Fever, Chills, Myalgias, Fatigue, Sweats Throat: denies: Sore throat Cardiac: reports: Reviewed and negative Respiratory: reports: Cough. denies: Dyspnea, Hemoptysis, Wheezing GI: reports: Reviewed and negative : denies: Dysuria, Frequency Musculoskeletal: reports: Reviewed and negative Neurologic: reports: Headache. denies: Generalized weakness, Focal weakness, Numbness, Confused, Altered mental status, Head injury PD PAST MEDICAL HISTORY - Past Medical History Cardiovascular: Hypertension, High cholesterol, Coronary artery disease, Peripheral Vascular Disease, Other Respiratory: Shortness of breath, Other Neuro: Peripheral neuropathy Endocrine/Autoimmune: None GI: GERD, Colon polyps, Chronic diarrhea : Benign prostate hypertrophy, Renal insuffiency HEENT: Chronic sinusitis, Chronic hearing loss, Other Psych: Anxiety Musculoskeletal: Osteoarthritis, Gout, Chronic back pain Derm: Other - Past Surgical History Past Surgical History: Yes General: Other (R inguinal hernia repair 1997) Ortho: Arthroscopic surgery Cardiovascular: Coronary stent, Cardiac catheterization HEENT: Cataracts, Tonsil/Adenoidectomy - Present Medications Home Medications: Ambulatory Orders Medication Instructions Recorded Confirmed Apixaban [Eliquis] 5 mg PO BID 01/08/19 06/01/22 Atorvastatin Calcium 40 mg PO QPM 01/08/19 06/01/22 Cetirizine HCl 10 mg PO DAILY 01/08/19 06/02/22 Fluticasone [Flonase] 2 spray ADDIE DAILY PRN 01/08/19 06/02/22 Fluticasone/Salmeterol [Advair 1 puffs INH BID 01/08/19 06/02/22 250-50 Diskus] Pantoprazole Sodium [Protonix] 40 mg PO QDAC 01/08/19 06/02/22 Tamsulosin [Flomax] 0.4 mg PO DAILY 01/08/19 06/02/22 allopurinoL [Allopurinol] 100 mg PO DAILY 01/08/19 06/02/22 Duloxetine HCl [Cymbalta] 60 mg PO DAILY 06/01/22 06/01/22 Losartan Potassium 12.5 mg PO DAILY 06/01/22 06/02/22 carvediloL [Coreg] 12.5 mg PO BID 06/01/22 06/01/22 Spironolactone [Aldactone] 25 mg PO DAILY #30 tablet 06/10/22 - Allergies Allergies/Adverse Reactions: Allergies Allergy/AdvReac Type Severity Reaction Status Date / Time hydrocodone Allergy Unknown Verified 05/31/22 20:22 simvastatin [From Zocor] AdvReac Unknown Verified 05/31/22 20:22 - Social History Does the pt smoke?: No Smoking Status: Never smoker Does the pt drink ETOH?: No Does the pt have substance abuse?: No - Immunizations Immunizations are current?: Yes - POLST Patient has POLST: No POLST Status: Full Code PD ED PE NORMAL - Vitals Vital signs reviewed: Yes - General General: Alert and oriented X 3, No acute distress, Well developed/nourished - HEENT HEENT: Moist mucous membranes - Neck Neck: Supple, no meningeal sign - Respiratory Respiratory: No respiratory distress, Clear bilaterally - Abdomen Abdomen: Soft, Non tender - Derm Derm: Normal color, Warm and dry - Extremities Extremities: No edema - Neuro Neuro: Alert and oriented X 3 (very [place] ) PD ED PE EXPANDED - Cardiac Cardiac: Regular Rhythm, Murmur Present Results - Vitals Vitals: Oxygen O2 Source Room air - EKG (time done) No standard instances Rate: Rate (enter#) (80) Rhythm: Paced [place]: LAD - Labs Labs: Laboratory Tests 07/14/22 07/14/22 07/14/22 00:40 00:49 00:49 WBC 12.6 H RBC 3.62 L Hgb 9.3 L Hct 28.9 L MCV 79.8 L MCH 25.7 L MCHC 32.2 RDW 20.6 H Plt Count 267 MPV 10.3 Neut # (Auto) 10.9 H Lymph # (Auto) 0.9 L [place] # (Auto) 0.6 Eos # (Auto) 0.1 Baso # (Auto) 0.0 Absolute Nucleated RBC 0.00 Nucleated RBC % 0.0 Manual Slide Review Indicated WBC Morphology NORMAL APPEARANCE Platelet Estimate NORMAL (130-450,000) Platelet Morphology NORMAL APPEARANCE RBC Morph Micro Appear 1+ ANISOCYTOSIS Sodium 135 Potassium 3.9 Chloride 100 L Carbon Dioxide 24 Anion Gap 11.0 BUN 28 H Creatinine 1.6 H Estimated GFR (MDRD) 42 L Glucose 174 H Calcium 8.4 L Total Bilirubin 0.8 AST 21 ALT 15 Alkaline Phosphatase 72 B-Natriuretic Peptide Total Protein 7.4 Albumin 3.1 L Globulin 4.3 H Albumin/Globulin Ratio 0.7 L Lipase 25 Nasal Adenovirus (PCR) NOT DETECTED Nasal B. parapertussis DNA (PCR) NOT DETECTED Nasal Coronavir 229E PCR NOT DETECTED Nasal Coronavir HKU1 PCR NOT DETECTED Nasal Coronavir NL63 PCR NOT DETECTED Nasal Coronavir OC43 PCR NOT DETECTED Nasal Enterovir/Rhinovir PCR DETECTED A Nasal Influenza B PCR NOT DETECTED Nasal Influenza A PCR NOT DETECTED Nasal Parainfluen 1 PCR NOT DETECTED Nasal Parainfluen 2 PCR NOT DETECTED Nasal Parainfluen 3 PCR NOT DETECTED Nasal Parainfluen 4 PCR NOT DETECTED Nasal RSV (PCR) NOT DETECTED Nasal B.pertussis DNA PCR NOT DETECTED Nasal C.pneumoniae (PCR) NOT DETECTED Addie Human Metapneumo PCR NOT DETECTED Nasal M.pneumoniae (PCR) NOT DETECTED Nasal SARS-CoV-2 (PCR) NOT DETECTED 07/14/22 00:49 WBC RBC Hgb Hct MCV MCH MCHC RDW Plt Count MPV Neut # (Auto) Lymph # (Auto) [place] # (Auto) Eos # (Auto) Baso # (Auto) Absolute Nucleated RBC Nucleated RBC % Manual Slide Review WBC Morphology Platelet Estimate Platelet Morphology RBC Morph Micro Appear Sodium Potassium Chloride Carbon Dioxide Anion Gap BUN Creatinine Estimated GFR (MDRD) Glucose Calcium Total Bilirubin AST ALT Alkaline Phosphatase B-Natriuretic Peptide 1610 H Total Protein Albumin Globulin Albumin/Globulin Ratio Lipase Nasal Adenovirus (PCR) Nasal B. parapertussis DNA (PCR) Nasal Coronavir 229E PCR Nasal Coronavir HKU1 PCR Nasal Coronavir NL63 PCR Nasal Coronavir OC43 PCR Nasal Enterovir/Rhinovir PCR Nasal Influenza B PCR Nasal Influenza A PCR Nasal Parainfluen 1 PCR Nasal Parainfluen 2 PCR Nasal Parainfluen 3 PCR Nasal Parainfluen 4 PCR Nasal RSV (PCR) Nasal B.pertussis DNA PCR Nasal C.pneumoniae (PCR) Addie Human Metapneumo PCR Nasal M.pneumoniae (PCR) Nasal SARS-CoV-2 (PCR) - Rads (name of study) chest xray Radiology: Prelim report reviewed, See rad report PD MEDICAL DECISION MAKING - ED course Complexity details: reviewed old records, reviewed results, re-evaluated nichelle baeza, considered differential, d/w patient ED course: presents with symptoms s/o pneumonia vs bronchitis/URI. Blood test results of note include 12.6 WBC (mild leukocytosis), bun/creatinine 28/1.6 (both are comparable to previous, with improvement in BUN versus his baseline/average), BNP 1610 (higher than most values last month but has been comparably high at times in past although mostly has had normal or mildly elevated BNP), 9.3 hemoglobin (comparable to baseline previous recent results). He does not c/o shortness of breath, does not have adventitious sounds including crackles/rales on exam, and CXR is not suggestive of pulmonary edema, and thus no action taken on the BNP reading. His nasal respiratory PCR panel is POSITIVE for enterovirus/rhinovirus, providing a likely etiology for his symptoms. These results were d/w patient including the PCR result, the diagnosis, expected course, lack of specific/targeted treatment (such as an anti-viral medication or antibiotic), and return precautions reviewed prior to d/c. He says he feels well enough for discharge and will return if he is worse in any way. Departure - Departure Disposition: 01 Home, Self Care Clinical Impression: Bronchitis Condition: Good Instructions: ED Upper Resp Infec No Abx Tx Follow-Up: Kate Barr ARNP [Primary Care Provider] - Comments: The results of tonight's tests do not have abnormalities that are significantly different from previous results (your red blood cell level is a little low, your kidney tests are a little high (abnormal), but comparable to previous results). Your viral nasal swab testing was NEGATIVE for COVID and NEGATIVE for influenza. It was POSITIVE for ENTEROVIRUS/RHINOVIRUS, which would explain cough, low-grade fever, generalized headache. It is generally a benign virus (typically does not cause problems that require hospitalization). However, if your symptoms worsen, you should return to the emergency department for reevaluation. Discharge Date/Time: 07/14/22 02:13
[2022-07-14 00:57] LABS: BASOPHILS % (AUTO) 0.3 %; LYMPHOCYTES % (AUTO) 7.3 %; MEAN CORPUSCULAR HGB CONC 32.2 g/dL (32.0-36.0)
[2022-07-14 01:08] LABS: EOSINOPHILS # (AUTO) 0.1 10^3/uL (0.0-0.7); HCT - HEMATOCRIT 28.9 % (42.0-52.0); HGB - HEMOGLOBIN 9.3 g/dL (14.0-18.0); LYMPHOCYTES # (AUTO) 0.9 10^3/uL (1.5-3.5); MEAN CORPUSCULAR HEMOGLOBIN 25.7 pg (27.0-31.0); MEAN CORPUSCULAR VOLUME 79.8 fL (80.0-94.0); MEAN PLATELET VOLUME 10.3 fL (7.4-11.4); MONOCYTES # (AUTO) 0.6 10^3/uL (0.0-1.0); MONOCYTES % (AUTO) 4.8 %; NEUTROPHILS # (AUTO) 10.9 10^3/uL (1.5-6.6); NEUTROPHILS % (AUTO) 86.3 %; PLT - PLATELET COUNT 267 10^3/uL (130-450); RED BLOOD COUNT 3.62 10^6/uL (4.70-6.10); RED CELL DISTRIBUTION WIDTH 20.6 % (12.0-15.0); WHITE BLOOD COUNT 12.6 x10^3/uL (4.8-10.8)
[2022-07-14 01:13] LABS: ALBUMIN 3.1 g/dL (3.2-5.5); ALBUMIN/GLOBULIN RATIO 0.7 (1.0-2.2); BILIRUBIN,TOTAL 0.8 mg/dL (0.2-1.0); CALCIUM 8.4 mg/dL (8.5-10.3); CREATININE 1.6 mg/dL (0.6-1.2); POTASSIUM 3.9 mmol/L (3.5-5.0); TOTAL PROTEIN 7.4 g/dL (6.7-8.2)
[2022-07-14 01:14] LABS: SLIDE REVIEW? Indicated
[2022-07-14 01:15] LABS: PLATELET ESTIMATE, MANUAL NORMAL (130-450,000) (NORMAL); PLATELET MORPHOLOGY NORMAL APPEARANCE (NORMAL); RBC MORPHOLOGY (MULTIPLE) 1+ ANISOCYTOSIS (NORMAL); WBC MORPHOLOGY (MULTIPLE) NORMAL APPEARANCE (NORMAL)
--- NOTE | 2022-07-14 01:32 | XRAY Report ---
PROCEDURE: Chest 2 View X-Ray INDICATIONS: dyspnea, cough TECHNIQUE: 2 views of the chest. COMPARISON: Chest x-ray 06/10/2022, 06/10/2022. FINDINGS: Surgical changes and devices: Left chest wall AICD and leads appear similar to the prior study. Lungs and pleura: There is mild pulmonary vascular prominence suggestive of mild pulmonary edema. Li near opacities in the right lung base are consistent with atelectasis or developing consolidation. No pleural effusions or pneumothorax. Mediastinum: Mediastinal contours are unchanged. Heart size is mildly enlarged. Bones and chest wall: No suspicious bony abnormalities. Soft tissues appear unremarkable. IMPRESSION: 1. Linear bibasilar opacities likely represent atelectasis but may also reflect developing consolidat ion. 2. Probably vascular prominence suggestive of mild edema. Reviewed by: Felix Washington MD on 07/14/2022 1:30 AM PDT Approved by: Felix Washington MD on 07/14/2022 1:30 AM PDT Station ID: [id number]
[2022-07-14 01:47] LABS: B. PARAPERTUSSIS- RESP PCR PAN NOT DETECTED; B. PERTUSSIS- RESP PCR PANEL NOT DETECTED; C. PNEUMONIAE- RESP PCR PANEL NOT DETECTED; CORONAVIRUS 229E-RESP PCR NOT DETECTED; CORONAVIRUS HKU1-RESP PCR NOT DETECTED; CORONAVIRUS NL63-RESP PCR NOT DETECTED; CORONAVIRUS OC43-RESP PCR NOT DETECTED; HUMAN METAPNEUMOVIRUS NOT DETECTED; INFLUENZA A- RESP PCR PANEL NOT DETECTED; INFLUENZA B - RESP PCR PANEL NOT DETECTED; M. PNEUMONIAE- RESP PCR PANEL NOT DETECTED; PARAINFLUENZA VIRUS 1 NOT DETECTED; PARAINFLUENZA VIRUS 2 NOT DETECTED; PARAINFLUENZA VIRUS 3 NOT DETECTED; PARAINFLUENZA VIRUS 4 NOT DETECTED; RHINOVIRUS/ENTEROVIRUS DETECTED; RSV- RESP PCR PANEL NOT DETECTED; SARS-CoV-2 -RESP PCR PANEL NOT DETECTED
[2022-07-14 02:14] VITALS: BP 147/68
== END 2022-07-14 02:13 | disposition home or self-care (01) ==
LOC: ED 23:26
DX: J20.6 Acute bronchitis due to rhinovirus (principal); I10 Essential (primary) hypertension; Z20.822 Contact with and (suspected) exposure to COVID-19
CPT/HCPCS: 36415; 80053; 83690; 83880; 85025; 87633; 93005; 99283; 99284

== ENCOUNTER 2022-07-31 16:16 | Outpatient (CLI) | payer MEDICARE, OTHER ==
--- NOTE | 2022-07-31 17:09 | XRAY Report ---
PROCEDURE: Knee 2 View RT INDICATIONS: RIGHT KNEE PAIN AFTER FALL TECHNIQUE: 2 views of the right knee(s) were acquired. COMPARISON: None. FINDINGS: Bones: Moderate tricompartmental degenerative changes. Patellar enthesopathy. Soft tissues: Small joint effusion. Vascular calcifications. IMPRESSION: No acute radiographic abnormality. There are degenerative changes. Small joint effusion is present. If there is high concern for occult injury, consider repeat radiography or cross-sectiona l imaging. Reviewed by: Marino Ng MD on 07/31/2022 5:07 PM PDT Approved by: Marino Ng MD on 07/31/2022 5:07 PM PDT Station ID: [id number]
--- NOTE | 2022-07-31 18:21 | XRAY Report ---
PROCEDURE: Ribs w/PA Chest LT INDICATIONS: LEFT RIB PAIN TECHNIQUE: 3 views of the left ribs were acquired, along with a single view chest. COMPARISON: 07/14/2022 FINDINGS: Surgical changes and devices: Biventricular left-sided pacemaker/defibrillator present. Bones and chest wall: No fractures or dislocations. No suspicious bony lesions. Overlying soft tis sues appear unremarkable. Lungs and pleura: No pleural effusions or pneumothorax. Lungs appear clear. Mediastinum: Mediastinal contours appear normal. Heart size is enlarged. IMPRESSION: 1. No evidence of rib fracture or pneumothorax 2. Cardiomegaly without vascular congestion Reviewed by: Deniz Bach MD on 07/31/2022 5:20 PM AKSANDRA Approved by: Deniz Bach MD on 07/31/2022 5:20 PM AKSANDRA Station ID: [id number]
== END 2022-07-31 23:59 | disposition home or self-care (01) ==
LOC: DI.N 16:16
PROVIDERS: ATTEND Family Medicine
DX: S80.01XA Contusion of right knee, initial encounter (principal); R07.81 Pleurodynia; I51.7 Cardiomegaly

== ENCOUNTER 2023-05-18 02:40 | Emergency (ER) | payer MEDICARE, OTHER ==
[2023-05-18] MEDS ORDERED: OXYMETAZOLINE HCL 100 SPRAYS BOTTLE NAS STA (02:42)
--- NOTE | 2023-05-18 03:12 | ED Physician Documentation ---
PD SYED HEENT - Stated complaint Stated Complaint: NOSE BLEED - Chief complaint Chief Complaint: Heent - History obtained from History obtained from: Patient - Additional information Additional information: The patient comes to the emergency department chief complaint of right-sided epistaxis for the last couple of hours. He is on Eliquis and denies any trauma to his nose. He states that he was in bed and suddenly noticed that it felt like his nose was running. When he turned on the light, he noticed a large spot of blood on his bedding. He states that he has tried to pinch his nose but has not gotten the bleeding to stop. He denies any changes in his Eliquis regimen. No recent allergies or upper respiratory infection. No other complaints at this time. PD PAST MEDICAL HISTORY - Past Medical History Cardiovascular: Hypertension, High cholesterol, Coronary artery disease, Peripheral Vascular Disease, Other Respiratory: Shortness of breath, Other Neuro: Peripheral neuropathy Endocrine/Autoimmune: None GI: GERD, Colon polyps, Chronic diarrhea : Benign prostate hypertrophy, Renal insuffiency HEENT: Chronic sinusitis, Chronic hearing loss, Other Psych: Anxiety Musculoskeletal: Osteoarthritis, Gout, Chronic back pain Derm: Other - Past Surgical History Past Surgical History: Yes General: Other (R inguinal hernia repair 1997) Ortho: Arthroscopic surgery Cardiovascular: Coronary stent, Cardiac catheterization HEENT: Cataracts, Tonsil/Adenoidectomy - Present Medications Home Medications: Ambulatory Orders Medication Instructions Recorded Confirmed Apixaban [Eliquis] 5 mg PO BID 01/08/19 06/01/22 Atorvastatin Calcium 40 mg PO QPM 01/08/19 06/01/22 Cetirizine HCl 10 mg PO DAILY 01/08/19 06/02/22 Fluticasone [Flonase] 2 spray ADDIE DAILY PRN 01/08/19 06/02/22 Fluticasone/Salmeterol [Advair 1 puffs INH BID 01/08/19 06/02/22 250-50 Diskus] Pantoprazole Sodium [Protonix] 40 mg PO QDAC 01/08/19 06/02/22 Tamsulosin [Flomax] 0.4 mg PO DAILY 01/08/19 06/02/22 allopurinoL [Allopurinol] 100 mg PO DAILY 01/08/19 06/02/22 Duloxetine HCl [Cymbalta] 60 mg PO DAILY 06/01/22 06/01/22 Losartan Potassium 12.5 mg PO DAILY 06/01/22 06/02/22 carvediloL [Coreg] 12.5 mg PO BID 06/01/22 06/01/22 Spironolactone [Aldactone] 25 mg PO DAILY #30 tablet 06/10/22 - Allergies Allergies/Adverse Reactions: Allergies Allergy/AdvReac Type Severity Reaction Status Date / Time hydrocodone Allergy Unknown Verified 05/31/22 20:22 simvastatin [From Zocor] AdvReac Unknown Verified 05/31/22 20:22 - Social History Does the pt smoke?: No Smoking Status: Never smoker Does the pt drink ETOH?: No Does the pt have substance abuse?: No - Immunizations Immunizations are current?: Yes - POLST Patient has POLST: No POLST Status: Full Code PD ED PE NORMAL - Vitals Vital signs reviewed: Yes - General General: Alert and oriented X 3, No acute distress, Well developed/nourished - HEENT HEENT: Atraumatic, PERRL, EOMI, Moist mucous membranes, Other (Externally atraumatic appearing nose with a steady trickle of blood coming from the right naris. Appears to be a source the nasal septum.) - Neck Neck: Supple, no meningeal sign - Cardiac Cardiac: RRR, No murmur - Respiratory Respiratory: No respiratory distress, Clear bilaterally - Derm Derm: Normal color, Warm and dry, No rash - Extremities Extremities: No deformity, No edema - Neuro Neuro: Alert and oriented X 3 - Psych Psych: Normal mood, Normal affect Results - Vitals Vitals: Vital Signs - 24 hr 05/18/23 05/18/23 02:53 03:13 Temperature 36 C L Heart Rate 68 66 Respiratory 16 16 Rate Blood Pressure 202/88 H 197/81 H O2 Saturation 100 100 Oxygen O2 Source Room air Procedures - Epistaxis - Minor Site: Right, Anterior Preparation: Clots removed, Afrin, Clamp / pressure applied Treatment: Anterior rhinorocket, Packing inserted Other: Observed - no bleeding, Pt tolerated well, O2 sat WNL, Referred to ENT PD Medical Decision Making - ED course Complexity details: considered differential, d/w patient ED course: Oxymetazoline was applied and nose packed as above. The patient was observed in the emergency department and demonstrated no further bleeding. He is already established with ENT in [place] and is advised to call them first thing in the morning to make a follow-up appointment for within the next week to have the packing removed. He understands that if for some reason he cannot be seen in the ENT clinic in that time, he should return to the emergency department for reevaluation of packing and probable removal. We have discussed the usual indications for return in a shorter timeframe. Departure - Departure Disposition: 01 Home, Self Care Clinical Impression: Epistaxis Condition: Stable Instructions: ED Nosebleed, ED Nasal Packing Anterior Removable Follow-Up: Xiang Oh MD [Physician No Access] - Comments: Due to the fact that you are on Eliquis, your nose has been packed today for your nosebleed. It is important that you leave the packing in place for at least the next several days to help the area heal and prevent it from bleeding again. For now, you should continue your Eliquis and should not stop it unless absolutely necessary. Most nosebleeds can be handled without having to stop the blood thinners, at least initially. Please call your ENTs office in [place] first thing in the morning to set up a follow-up appointment within a week to see them. If he cannot be seen within this timeframe, you should come back to the emergency department to have your packing removed within the week. Forms: PCP List Discharge Date/Time: 05/18/23 03:24
[2023-05-18 03:26] VITALS: BP 197/81
== END 2023-05-18 03:24 | disposition home or self-care (01) ==
LOC: ED 02:40
DX: R04.0 Epistaxis (principal); I10 Essential (primary) hypertension; E78.00 Pure hypercholesterolemia, unspecified; I25.10 Atherosclerotic heart disease of native coronary artery without angina pectoris; Z79.51 Long term (current) use of inhaled steroids; Z79.899 Other long term (current) drug therapy; Z79.01 Long term (current) use of anticoagulants
CPT/HCPCS: 30901; 99282; 99283; A9270

== ENCOUNTER 2023-09-06 08:00 | Outpatient (CLI) | payer MEDICARE, OTHER ==
--- NOTE | 2023-09-06 16:56 | XRAY Report ---
PROCEDURE: Knee 4 View LT INDICATIONS: LEFT KNEE PAIN TECHNIQUE: 4 views of the knee(s) were acquired. COMPARISON: None. FINDINGS: Bones: No fractures or dislocations. Moderate to severe tricompartmental osteoarthritis in left knee is seen more notably in medial femoral tibial compartment and patellofemoral compartment. No patella subluxation. No suspicious bony lesions. Soft tissues: Moderate knee joint effusion. No suspicious soft tissue calcifications or masses. IMPRESSION: Moderate to severe tricompartmental osteoarthritis in left knee with moderate joint effusion. No acut e fracture or dislocation. Reviewed by: Trent Rhodes MD on 09/06/2023 4:55 PM PST Approved by: Trent Rhodes MD on 09/06/2023 4:55 PM PST Station ID: [id number]
== END 2023-09-06 23:59 | disposition home or self-care (01) ==
LOC: DI.WOS 08:00
PROVIDERS: ATTEND Physician Assistant Surgical
DX: M17.12 Unilateral primary osteoarthritis, left knee (principal); M25.462 Effusion, left knee

== ENCOUNTER 2023-12-07 14:16 | Outpatient (CLI) | payer MEDICARE, OTHER ==
[2023-12-07 18:16] LABS: BASOPHILS # (AUTO) 0.1 10^3/uL (0.0-0.1); BASOPHILS % (AUTO) 1.3 %; EOSINOPHILS # (AUTO) 0.3 10^3/uL (0.0-0.7); EOSINOPHILS % (AUTO) 4.4 %; HGB - HEMOGLOBIN 11.4 g/dL (14.0-18.0); LYMPHOCYTES # (AUTO) 1.7 10^3/uL (1.5-3.5); LYMPHOCYTES % (AUTO) 22.4 %; MEAN CORPUSCULAR HEMOGLOBIN 27.1 pg (27.0-31.0); MEAN CORPUSCULAR VOLUME 90.3 fL (80.0-94.0); MEAN PLATELET VOLUME 10.9 fL (7.4-11.4); MONOCYTES # (AUTO) 0.6 10^3/uL (0.0-1.0); MONOCYTES % (AUTO) 8.4 %; NEUTROPHILS # (AUTO) 4.7 10^3/uL (1.5-6.6); NEUTROPHILS % (AUTO) 63.2 %; PLT - PLATELET COUNT 262 10^3/uL (130-450); RED BLOOD COUNT 4.21 10^6/uL (4.70-6.10); RED CELL DISTRIBUTION WIDTH 17.1 % (12.0-15.0); WHITE BLOOD COUNT 7.4 x10^3/uL (4.8-10.8)
[2023-12-07 18:20] LABS: ALBUMIN 3.8 g/dL (3.2-5.5); ALBUMIN/GLOBULIN RATIO 1.1 (1.0-2.2); ALKALINE PHOSPHATASE 92 IU/L (42-121); ALT ALANINE AMINOTRANSFERASE 4 IU/L (10-60); AST ASPARTATE AMINOTRANSFERASE 12 IU/L (10-42); BILIRUBIN,TOTAL 0.6 mg/dL (0.2-1.0); BUN - BLOOD UREA NITROGEN 40 mg/dL (6-20); CARBON DIOXIDE - CO2 26 mmol/L (21-32); CHLORIDE 103 mmol/L (101-111); CHOLESTEROL 143 mg/dL; CREATININE 1.7 mg/dL (0.6-1.3); GFR - MDRD 39 (>89); GLUCOSE 103 mg/dL (74-104); HDL CHOLESTEROL 47 mg/dL; LDL CHOLESTEROL,CALCULATED 66 mg/dL; LDL/HDL RATIO 1.4 (<3.6); POTASSIUM 3.4 mmol/L (3.5-4.5); SODIUM 139 mmol/L (135-145); TOTAL PROTEIN 7.2 g/dL (6.4-8.9); TRIGLYCERIDES 149 mg/dL (48-352); VLDL CHOLESTEROL 30 mg/dL
== END 2023-12-07 14:17 | disposition home or self-care (01) ==
LOC: LAB.N 14:16
PROVIDERS: ATTEND Nurse Practitioner Family
DX: I13.10 Hypertensive heart and chronic kidney disease without heart failure, with stage 1 through stage 4 chronic kidney disease, or unspecified chronic kidney disease (principal); N18.32 Chronic kidney disease, stage 3b; Z79.899 Other long term (current) drug therapy
CPT/HCPCS: 36415; 80053; 80061; 83721; 84443; 85025

== ENCOUNTER 2024-02-17 22:12 | Emergency (ER) | payer MEDICARE, OTHER ==
[2024-02-17 22:59] LABS: BASOPHILS # (AUTO) 0.1 10^3/uL (0.0-0.1); BASOPHILS % (AUTO) 0.7 %; EOSINOPHILS # (AUTO) 0.1 10^3/uL (0.0-0.7); EOSINOPHILS % (AUTO) 0.7 %; HCT - HEMATOCRIT 33.3 % (42.0-52.0); HGB - HEMOGLOBIN 10.1 g/dL (14.0-18.0); LYMPHOCYTES # (AUTO) 1.4 10^3/uL (1.5-3.5); LYMPHOCYTES % (AUTO) 13.3 %; MEAN CORPUSCULAR HEMOGLOBIN 26.8 pg (27.0-31.0); MEAN CORPUSCULAR HGB CONC 30.3 g/dL (32.0-36.0); MEAN CORPUSCULAR VOLUME 88.3 fL (80.0-94.0); MEAN PLATELET VOLUME 10.7 fL (7.4-11.4); MONOCYTES % (AUTO) 9.4 %; NEUTROPHILS # (AUTO) 7.7 10^3/uL (1.5-6.6); NEUTROPHILS % (AUTO) 75.6 %; PLT - PLATELET COUNT 224 10^3/uL (130-450); RED BLOOD COUNT 3.77 10^6/uL (4.70-6.10); RED CELL DISTRIBUTION WIDTH 17.1 % (12.0-15.0); WHITE BLOOD COUNT 10.2 x10^3/uL (4.8-10.8)
[2024-02-17 23:00] LABS: VBG BASE EXCESS -1.2 mmol/L (-2 - +2); VBG HCO3 21.2 mmol/L (23-28); VBG OXYGEN SATURATION 92.1 % (60-80); VBG PCO2 28.5 mmHg (41-51); VBG PH 7.49 (7.31-7.41); VBG PO2 60.9 mmHg (25-47); VBG TOTAL CO2 22.1 mmol/L (24-29)
[2024-02-17 23:22] LABS: ALBUMIN 3.4 g/dL (3.2-5.5); ALBUMIN/GLOBULIN RATIO 0.9 (1.0-2.2); ALKALINE PHOSPHATASE 80 IU/L (42-121); ALT ALANINE AMINOTRANSFERASE 13 IU/L (10-60); AST ASPARTATE AMINOTRANSFERASE 14 IU/L (10-42); BILIRUBIN,TOTAL 1.5 mg/dL (0.2-1.0); BUN - BLOOD UREA NITROGEN 25 mg/dL (6-20); CARBON DIOXIDE - CO2 21 mmol/L (21-32); CHLORIDE 105 mmol/L (101-111); CREATININE 1.6 mg/dL (0.6-1.3); GFR - MDRD 42 (>89); GLUCOSE 127 mg/dL (74-104); POTASSIUM 3.8 mmol/L (3.5-4.5); SODIUM 136 mmol/L (135-145); TOTAL PROTEIN 7.1 g/dL (6.4-8.9)
--- NOTE | 2024-02-17 23:25 | XRAY Report ---
PROCEDURE: Chest 1V INDICATIONS: Chest Pain TECHNIQUE: One view of the chest was acquired. COMPARISON: 07/14/2022 FINDINGS: Surgical changes and devices: Left cardiac pacemaker. Lungs and pleura: No pleural effusions or pneumothorax. Diffuse interstitial prominence. Mild vascul ar congestion. Probable small right pleural effusion. No definite consolidation. No pneumothorax. Mediastinum: Mediastinal contours appear stable. Heart size is mildly enlarged. Bones and chest wall: No suspicious bony lesions. Overlying soft tissues appear unremarkable. IMPRESSION: Cardiomegaly with findings suggestive of pulmonary edema/CHF. Concurrent infectious or inflammatory p rocess not excluded if clinically appropriate. No focal consolidation. Reviewed by: Ramiro Orellana MD on 02/17/2024 11:23 PM PDT Approved by: Ramiro Orellana MD on 02/17/2024 11:23 PM PDT Station ID: [id number]
--- NOTE | 2024-02-17 23:25 | ED Physician Documentation ---
History of Present Illness - Stated complaint Stated Complaint: SOA - Chief complaint Chief Complaint: Resp - History obtained from History obtained from: Patient - Additonal information Additional information: 78yM with pmh afib on eliquis, aicd, cad s/p stent, htn, hld, p/w generalized weakness and soa X 1 day. also with mild nonproductive cough, pillow orthopnea, mild leg swelling. unable to list his meds or confirm he is taking them consistently . denies fever,chills, n/v, cp, palpitations, dizziness. PD PAST MEDICAL HISTORY - Past Medical History Past Medical History: Yes Cardiovascular: Hypertension, High cholesterol, Coronary artery disease, Peripheral Vascular Disease, Other Respiratory: Shortness of breath, Other Neuro: Parkinson's, Peripheral neuropathy Endocrine/Autoimmune: None GI: GERD, Colon polyps, Chronic diarrhea : Benign prostate hypertrophy, Renal insuffiency HEENT: Chronic sinusitis, Chronic hearing loss, Other Psych: Anxiety Musculoskeletal: Osteoarthritis, Gout, Chronic back pain Derm: Other - Past Surgical History Past Surgical History: Yes General: Other Ortho: Arthroscopic surgery Cardiovascular: Coronary stent, Cardiac catheterization HEENT: Cataracts, Tonsil/Adenoidectomy - Present Medications Home Medications: Ambulatory Orders Medication Instructions Recorded Confirmed Apixaban [Eliquis] 5 mg PO BID 01/08/19 02/18/24 Atorvastatin Calcium 40 mg PO QPM 01/08/19 02/18/24 Fluticasone [Flonase] 2 spray ADDIE DAILY PRN 01/08/19 02/18/24 Fluticasone/Salmeterol [Advair 1 puffs INH BID 01/08/19 02/18/24 250-50 Diskus] Pantoprazole Sodium [Protonix] 40 mg PO QDAC 01/08/19 02/18/24 allopurinoL [Allopurinol] 100 mg PO DAILY 01/08/19 02/18/24 Losartan Potassium 12.5 mg PO DAILY 06/01/22 02/18/24 Benzonatate [Tessalon] 100 mg PO QPM 02/17/24 02/18/24 DULoxetine [Cymbalta] 30 mg PO DAILY 02/17/24 02/18/24 Empagliflozin [Jardiance] 10 mg PO DAILY 02/17/24 02/18/24 Finasteride [Proscar] 5 mg PO DAILY 02/17/24 02/17/24 Torsemide 10 mg PO DAILY 02/17/24 02/17/24 carvediloL [Coreg] 25 mg PO BID 02/17/24 02/17/24 - Allergies Allergies/Adverse Reactions: Allergies Allergy/AdvReac Type Severity Reaction Status Date / Time hydrocodone Allergy Unknown Verified 02/17/24 22:15 simvastatin [From Zocor] AdvReac Unknown Verified 02/17/24 22:15 - Social History Does the pt smoke?: No Smoking Status: Never smoker Does the pt drink ETOH?: No Does the pt have substance abuse?: No - Immunizations Immunizations are current?: Yes - POLST Patient has POLST: No POLST Status: Full Code PD ED PE NORMAL - Vitals Vital signs reviewed: Yes - General General: Alert and oriented X 3, No acute distress, Other (elderly appearing) - HEENT HEENT: Atraumatic, PERRL, EOMI, Moist mucous membranes, Pharynx benign - Neck Neck: Supple, no meningeal sign - Cardiac Cardiac: RRR - Respiratory Respiratory: Other (mild BL crackles) - Abdomen Abdomen: Non tender, Non distended - Derm Derm: Normal color, Warm and dry - Extremities Extremities: Other (1+ BL pitting edema) - Neuro Neuro: Alert and oriented X 3, No motor deficit, No sensory deficit Results - Vitals Vitals: Vital Signs - 24 hr 02/17/24 02/17/24 02/18/24 22:15 23:30 00:00 Temperature 36.8 C Heart Rate 77 73 70 Respiratory 16 23 20 Rate Blood Pressure 172/74 H 165/95 H 214/88 H O2 Saturation 94 90 L 94 02/18/24 00:13 Temperature Heart Rate 74 Respiratory 24 Rate Blood Pressure 182/88 H O2 Saturation 94 Oxygen O2 Source Room air - EKG (time done) 2307 EKG releavant findings:: EKG personally interpreted by author of this note. Relevant findings are: Rate: Rate (enter#) (68) Rhythm: Atrial fibrillation, Other (ventricular paced rhythm) - Labs Labs: Laboratory Tests 02/17/24 02/17/24 02/17/24 22:55 22:55 22:55 WBC 10.2 RBC 3.77 L Hgb 10.1 L Hct 33.3 L MCV 88.3 MCH 26.8 L MCHC 30.3 L RDW 17.1 H Plt Count 224 MPV 10.7 Neut # (Auto) 7.7 H Lymph # (Auto) 1.4 L [place] # (Auto) 1.0 Eos # (Auto) 0.1 Baso # (Auto) 0.1 Absolute Nucleated RBC 0.00 Nucleated RBC % 0.0 VBG pH VBG pCO2 VBG pO2 VBG HCO3 VBG Total CO2 VBG O2 Saturation VBG Base Excess Sodium 136 Potassium 3.8 Chloride 105 Carbon Dioxide 21 Anion Gap 10.0 BUN 25 H Creatinine 1.6 H Estimated GFR (MDRD) 42 L Glucose 127 H Calcium 9.0 Total Bilirubin 1.5 H AST 14 ALT 13 Alkaline Phosphatase 80 Troponin I High Sens 56.9 H* B-Natriuretic Peptide 1340 H Total Protein 7.1 Albumin 3.4 Globulin 3.7 Albumin/Globulin Ratio 0.9 L Lipase < 10 L Nasal Adenovirus (PCR) Nasal B. parapertussis DNA (PCR) Nasal Coronavir 229E PCR Nasal Coronavir HKU1 PCR Nasal Coronavir NL63 PCR Nasal Coronavir OC43 PCR Nasal Enterovir/Rhinovir PCR Nasal Influenza B PCR Nasal Influenza A PCR Nasal Parainfluen 1 PCR Nasal Parainfluen 2 PCR Nasal Parainfluen 3 PCR Nasal Parainfluen 4 PCR Nasal RSV (PCR) Nasal B.pertussis DNA PCR Nasal C.pneumoniae (PCR) Addie Human Metapneumo PCR Nasal M.pneumoniae (PCR) Nasal SARS-CoV-2 (PCR) 02/17/24 02/17/24 02/17/24 22:55 23:14 23:44 WBC RBC Hgb Hct MCV MCH MCHC RDW Plt Count MPV Neut # (Auto) Lymph # (Auto) [place] # (Auto) Eos # (Auto) Baso # (Auto) Absolute Nucleated RBC Nucleated RBC % VBG pH 7.490 H VBG pCO2 28.5 L VBG pO2 60.9 H VBG HCO3 21.2 L VBG Total CO2 22.1 L VBG O2 Saturation 92.1 H VBG Base Excess -1.2 Sodium Potassium Chloride Carbon Dioxide Anion Gap BUN Creatinine Estimated GFR (MDRD) Glucose Calcium Total Bilirubin AST ALT Alkaline Phosphatase Troponin I High Sens 59.8 H* B-Natriuretic Peptide Total Protein Albumin Globulin Albumin/Globulin Ratio Lipase Nasal Adenovirus (PCR) NOT DETECTED Nasal B. parapertussis DNA (PCR) NOT DETECTED Nasal Coronavir 229E PCR NOT DETECTED Nasal Coronavir HKU1 PCR NOT DETECTED Nasal Coronavir NL63 PCR NOT DETECTED Nasal Coronavir OC43 PCR NOT DETECTED Nasal Enterovir/Rhinovir PCR NOT DETECTED Nasal Influenza B PCR NOT DETECTED Nasal Influenza A PCR NOT DETECTED Nasal Parainfluen 1 PCR NOT DETECTED Nasal Parainfluen 2 PCR NOT DETECTED Nasal Parainfluen 3 PCR NOT DETECTED Nasal Parainfluen 4 PCR NOT DETECTED Nasal RSV (PCR) NOT DETECTED Nasal B.pertussis DNA PCR NOT DETECTED Nasal C.pneumoniae (PCR) NOT DETECTED Addie Human Metapneumo PCR NOT DETECTED Nasal M.pneumoniae (PCR) NOT DETECTED Nasal SARS-CoV-2 (PCR) NOT DETECTED 02/18/24 01:05 WBC RBC Hgb Hct MCV MCH MCHC RDW Plt Count MPV Neut # (Auto) Lymph # (Auto) [place] # (Auto) Eos # (Auto) Baso # (Auto) Absolute Nucleated RBC Nucleated RBC % VBG pH VBG pCO2 VBG pO2 VBG HCO3 VBG Total CO2 VBG O2 Saturation VBG Base Excess Sodium Potassium Chloride Carbon Dioxide Anion Gap BUN Creatinine Estimated GFR (MDRD) Glucose Calcium Total Bilirubin AST ALT Alkaline Phosphatase Troponin I High Sens 69.0 H* B-Natriuretic Peptide Total Protein Albumin Globulin Albumin/Globulin Ratio Lipase Nasal Adenovirus (PCR) Nasal B. parapertussis DNA (PCR) Nasal Coronavir 229E PCR Nasal Coronavir HKU1 PCR Nasal Coronavir NL63 PCR Nasal Coronavir OC43 PCR Nasal Enterovir/Rhinovir PCR Nasal Influenza B PCR Nasal Influenza A PCR Nasal Parainfluen 1 PCR Nasal Parainfluen 2 PCR Nasal Parainfluen 3 PCR Nasal Parainfluen 4 PCR Nasal RSV (PCR) Nasal B.pertussis DNA PCR Nasal C.pneumoniae (PCR) Addie Human Metapneumo PCR Nasal M.pneumoniae (PCR) Nasal SARS-CoV-2 (PCR) PD Medical Decision Making - ED course ED course: 78yM with pmh afib on eliquis, aicd, cad s/p stent, htn, hld, p/w generalized weakness and soa X 1 day upon waking this AM. cbc, abdominal panel, trop, vbg, bnp, cxr, ekg ordered. Labwork is at baseline aside from trop 56.9, bnp 1340, in combination with cxr consistent with mild chf exacerbation. 60mg IV lasix ordered. d/w Dr. Abernathy, patient's fruit peeler at [facility] who states he is scheduled for an AICD device check tomorrow. she will f/u with patient to schedule clinic appointment outpatient. recommends discharge if stable troponins. she requested I reinforce the need for patient to take his torsemide as prescribed. trop is very mildly uptrending. patient well appearing with improvement in SOA and good UOP in response to lasix. counseling provided and strict return precautions given. Departure - Departure Disposition: 01 Home, Self Care Clinical Impression: Shortness of breath, CHF exacerbation Condition: Stable Instructions: ED CHF General Comments: You were seen in the emergency department for shortness of breath and found to have mild heart failure (CHF) exacerbation. You need to take your torsemide as prescribed and follow up with your fruit peeler. Please follow-up with Dr. Abernathy and return to the emergency department if you have any new or worsening symptoms or other concerns. Forms: PCP List
[2024-02-17 23:26] LABS: LIPASE < 10 U/L (11-82)
[2024-02-17 23:28] LABS: TROPONIN I HIGH SENSITIVITY 56.9 ng/L (2.3-19.7)
[2024-02-17] MEDS: FUROSEMIDE 40 MG/4 ML VIAL IVP STA (23:55)
[2024-02-18 00:21] LABS: B. PARAPERTUSSIS- RESP PCR PAN NOT DETECTED; B. PERTUSSIS- RESP PCR PANEL NOT DETECTED; C. PNEUMONIAE- RESP PCR PANEL NOT DETECTED; CORONAVIRUS 229E-RESP PCR NOT DETECTED; CORONAVIRUS HKU1-RESP PCR NOT DETECTED; CORONAVIRUS NL63-RESP PCR NOT DETECTED; CORONAVIRUS OC43-RESP PCR NOT DETECTED; HUMAN METAPNEUMOVIRUS NOT DETECTED; INFLUENZA A- RESP PCR PANEL NOT DETECTED; INFLUENZA B - RESP PCR PANEL NOT DETECTED; M. PNEUMONIAE- RESP PCR PANEL NOT DETECTED; PARAINFLUENZA VIRUS 1 NOT DETECTED; PARAINFLUENZA VIRUS 2 NOT DETECTED; PARAINFLUENZA VIRUS 3 NOT DETECTED; PARAINFLUENZA VIRUS 4 NOT DETECTED; RHINOVIRUS/ENTEROVIRUS NOT DETECTED; RSV- RESP PCR PANEL NOT DETECTED; SARS-CoV-2 -RESP PCR PANEL NOT DETECTED
[2024-02-18 02:08] VITALS: BP 167/80; O2SAT 98
== END 2024-02-18 02:00 | disposition home or self-care (01) ==
LOC: ED 22:12
DX: I50.9 Heart failure, unspecified (principal); Z95.810 Presence of automatic (implantable) cardiac defibrillator
CPT/HCPCS: 36415; 80053; 82803; 83690; 83880; 84484; 85025; 87633; 93005; 96374; 99284

== ENCOUNTER 2024-02-29 12:06 | Outpatient (CLI) | payer MEDICARE, OTHER ==
--- NOTE | 2024-02-29 14:05 | XRAY Report ---
Foot 3+V RT (Weight Bearing) HISTORY: 78 years of age, R TOE PAIN TECHNIQUE: Foot 3+V RT (Weight Bearing) COMPARISON: 02/14/2024. FINDINGS/IMPRESSION: Moderate degenerative change of the first metatarsophalangeal joint. Lateral subluxation at the thir d proximal interphalangeal joint, unchanged from prior exam. Cortical irregularity at the base of the second proximal phalanx, unchanged from prior exam, may represent a nondisplaced fracture. Ossificat ion dorsal to the navicular, measuring approximately 1.2 cm, new from prior exam, concerning for frac ture fragment. Recommend correlation with point tenderness for further evaluation with CT. Posterior calcaneal and plantar calcaneal enthesophyte. Reviewed by: Jeanie Coburn MD on 02/29/2024 2:04 PM PDT Approved by: Jeanie Coburn MD on 02/29/2024 2:04 PM PDT Station ID: [email or web address]
== END 2024-02-29 12:07 | disposition home or self-care (01) ==
LOC: DI 12:06
PROVIDERS: ATTEND Orthopaedic Surgery
DX: M19.071 Primary osteoarthritis, right ankle and foot (principal); S93.134A Subluxation of interphalangeal joint of right lesser toe(s), initial encounter; M77.51 Other enthesopathy of right foot and ankle

== ENCOUNTER 2024-03-11 22:45 | Outpatient (CLI) | payer MEDICARE, OTHER | END 2024-03-11 23:59 | disposition EMS.NT | LOC: EMS 22:45 | DX: Z03.89 Encounter for observation for other suspected diseases and conditions ruled out (principal) ==

== ENCOUNTER 2024-03-23 14:12 | Outpatient (CLI) | payer MEDICARE, OTHER ==
--- NOTE | 2024-03-23 15:02 | XRAY Report ---
PROCEDURE: Foot 3+V RT (Weight Bearing) INDICATIONS: RIGHT TOE WOUND, POSSIBLE OSTEOMYELITIS TECHNIQUE: 3 views of the foot were acquired. COMPARISON: 02/29/2024. FINDINGS: Bones: Progression of now dislocated third PIP joint laterally. Redemonstration of cortical irregular ity at the base of the second proximal phalanx, may represent fracture. No suspicious bony lesions. Diffusely decreased osseous mineralization. Posterior and plantar calcaneal enthesophytes. Moderate d egenerative changes of the first MTP joint. Soft tissues: No tibiotalar joint effusion. Achilles tendon appears normal. IMPRESSION: 1.Progressive dislocation of the third proximal interphalangeal joint. 2.Possible cortical irregularity of the third proximal interphalangeal joint, osteomyelitis is not ex cluded. If indicated, MRI can be obtained for further evaluation. 3.Lucency of the base of the second proximal phalanx is redemonstrated, may represent a fracture. Reviewed by: Cipriano Ram MD on 03/23/2024 3:01 PM PDT Approved by: Cipriano Ram MD on 03/23/2024 3:01 PM PDT Station ID: [id number]
== END 2024-03-23 14:13 | disposition home or self-care (01) ==
LOC: DI 14:12
PROVIDERS: ATTEND Family Medicine
DX: S93.114A Dislocation of interphalangeal joint of right lesser toe(s), initial encounter (principal); S91.104A Unspecified open wound of right lesser toe(s) without damage to nail, initial encounter

== ENCOUNTER 2024-04-28 04:07 | Outpatient (CLI) | payer MEDICARE, OTHER | END 2024-04-28 23:59 | disposition critical access hospital (66) | LOC: EMS 04:07 | DX: M54.2 Cervicalgia (principal); S09.93XA Unspecified injury of face, initial encounter; W07.XXXA Fall from chair, initial encounter; Y92.009 Unspecified place in unspecified non-institutional (private) residence as the place of occurrence of the external cause; Z79.01 Long term (current) use of anticoagulants | CPT/HCPCS: A0425; A0429 ==

== ENCOUNTER 2024-05-24 00:09 | Outpatient (CLI) | payer MEDICARE, OTHER | END 2024-05-24 23:59 | disposition EMS.NT | LOC: EMS 00:09 | DX: Z03.89 Encounter for observation for other suspected diseases and conditions ruled out (principal) ==

== ENCOUNTER 2024-05-27 16:51 | Outpatient (CLI) | payer MEDICARE, OTHER | END 2024-05-27 16:52 | disposition critical access hospital (66) | LOC: EMS 16:51 | DX: S09.90XA Unspecified injury of head, initial encounter (principal); W18.2XXA Fall in (into) shower or empty bathtub, initial encounter; Y93.E1 Activity, personal bathing and showering; Y92.002 Bathroom of unspecified non-institutional (private) residence as the place of occurrence of the external cause | CPT/HCPCS: A0425; A0429 ==

== ENCOUNTER 2024-05-27 17:08 | Emergency (ER) | payer MEDICARE, OTHER ==
--- NOTE | 2024-05-27 17:21 | ED Physician Documentation ---
PD HPI Fall - Stated complaint Stated Complaint: FALL - History obtained from History obtained from: Patient, EMS - Treatment prior to arrival Treatment prior to arrival: 79-year-old gentleman with Parkinson's and long history of A-fib on a DOAC with permanent pacemaker in place. He took a fall today, he was in the bathroom and he got out of the shower. The towel was not on the towel rack but was on the edge of a chair when he reached for it he fell and hit initially his rear end on the ground which was marble floor. Then he did hit his head and has a headache and neck pain as well. He was able to walk and bear weight after the fall. PD PAST MEDICAL HISTORY - Past Medical History Cardiovascular: Hypertension, High cholesterol, Coronary artery disease, Peripheral Vascular Disease, Other Respiratory: Shortness of breath, Other Neuro: Parkinson's, Peripheral neuropathy Endocrine/Autoimmune: None GI: GERD, Colon polyps, Chronic diarrhea : Benign prostate hypertrophy, Renal insuffiency HEENT: Chronic sinusitis, Chronic hearing loss, Other Psych: Anxiety Musculoskeletal: Osteoarthritis, Gout, Chronic back pain Derm: Other - Past Surgical History Past Surgical History: Yes General: Other Ortho: Arthroscopic surgery Cardiovascular: Coronary stent, Cardiac catheterization HEENT: Cataracts, Tonsil/Adenoidectomy - Present Medications Home Medications: Ambulatory Orders Medication Instructions Recorded Confirmed Apixaban [Eliquis] 5 mg PO BID 01/08/19 03/31/24 Atorvastatin Calcium 40 mg PO QPM 01/08/19 03/31/24 Pantoprazole Sodium [Protonix] 40 mg PO DAILY 01/08/19 03/31/24 allopurinoL [Allopurinol] 100 mg PO DAILY 01/08/19 03/31/24 Losartan Potassium 12.5 mg PO DAILY 06/01/22 03/31/24 Benzonatate [Tessalon] 100 mg PO BID PRN MDD 200 02/17/24 03/31/24 DULoxetine [Cymbalta] 60 mg PO DAILY 02/17/24 03/31/24 Empagliflozin [Jardiance] 10 mg PO DAILY 02/17/24 03/31/24 Finasteride [Proscar] 5 mg PO DAILY 02/17/24 03/31/24 Torsemide 10 mg PO DAILY 02/17/24 03/31/24 carvediloL [Coreg] 25 mg PO BID 02/17/24 03/31/24 Nitroglycerin [Nitrostat] 0.4 mg SL ONCE PRN 03/31/24 03/31/24 Tamsulosin [Flomax] 0.8 mg PO QPM 03/31/24 03/31/24 - Allergies Allergies/Adverse Reactions: Allergies Allergy/AdvReac Type Severity Reaction Status Date / Time hydrocodone Allergy Unknown Verified 05/27/24 17:21 simvastatin [From Zocor] AdvReac Unknown Verified 05/27/24 17:21 - Social History Does the pt smoke?: No Smoking Status: Never smoker Does the pt drink ETOH?: No Does the pt have substance abuse?: No - Immunizations Immunizations are current?: Yes - POLST Patient has POLST: No POLST Status: Full Code PD ED PE NORMAL - Vitals Vital signs reviewed: Yes - General General: Alert and oriented X 3, No acute distress - HEENT HEENT: PERRL, EOMI - Neck Neck: Other (Mild upper neck tenderness) - Cardiac Cardiac: RRR, No murmur - Respiratory Respiratory: No respiratory distress, Clear bilaterally - Abdomen Abdomen: Normal bowel sounds, Soft, Non tender - Back Back: No CVA TTP, No spinal TTP - Derm Derm: Normal color, Warm and dry - Extremities Extremities: Other (He has mild tenderness of the right leg just below the hip. Mildly painful external rotation and he is able to lift it off the bed.) - Neuro Neuro: Alert and oriented X 3, brick yard hand 2-12 intact Eye Opening: Spontaneous Motor: Obeys Commands Verbal: Oriented GCS Score: 15 Results - Vitals Vitals: Vital Signs - 24 hr 05/27/24 05/27/24 05/27/24 17:15 17:50 18:31 Temperature 36.7 C 36.5 C Heart Rate 66 66 67 Respiratory 18 16 13 Rate Blood Pressure 169/79 H 195/74 H 170/77 H O2 Saturation 94 97 99 Oxygen O2 Source Room air - Labs Labs: Laboratory Tests 05/27/24 05/27/24 17:14 17:14 WBC 9.5 RBC 3.41 L Hgb 9.0 L Hct 29.8 L MCV 87.4 MCH 26.4 L MCHC 30.2 L RDW 17.3 H Plt Count 250 MPV 10.4 Neut # (Auto) 6.8 H Lymph # (Auto) 1.4 L [place] # (Auto) 0.8 Eos # (Auto) 0.3 Baso # (Auto) 0.1 Absolute Nucleated RBC 0.00 Nucleated RBC % 0.0 Sodium 137 Potassium 4.0 Chloride 106 Carbon Dioxide 23 Anion Gap 8.0 BUN 26 H Creatinine 1.4 H Estimated GFR (MDRD) 49 L Glucose 107 H Calcium 8.9 Total Bilirubin 0.8 AST 12 ALT 8 L Alkaline Phosphatase 79 Total Protein 6.9 Albumin 3.5 Globulin 3.4 Albumin/Globulin Ratio 1.0 - Rads (name of study) CT of the head and cervical spine was negative for acute pathology. Relevant Findings:: Final report received, EMP independent interpretation of test CT right hip area with bladder wall thickening, diverticulosis, and bilateral inguinal hernias. Nad Relevant Findings:: Final report received, EMP independent interpretation of test PD Medical Decision Making - ED course ED course: CBC showing chronic normocytic anemia not significantly changed from prior values. CMP showing chronic kidney disease, actually slightly better than his usual values. He presents after a fall, relevant CT imaging was negative for traumatic findings, incidental findings were discussed with patient and son who is at the bedside. Departure - Departure Disposition: 01 Home, Self Care Clinical Impression: On anticoagulant therapy Head injury Qualifiers: Encounter type: initial encounter Qualified Code(s): S09.90XA - Unspecified injury of head, initial encounter Contusion of leg, right Qualifiers: Encounter type: initial encounter Qualified Code(s): S80.11XA - Contusion of right lower leg, initial encounter Condition: Good Record reviewed to determine appropriate education?: Yes Instructions: ED Head Injury Closed Comments: We did a CAT scan of your right hip, neck and head. There were no findings from the trauma. There were incidental findings on the CAT scan of your hip including diverticulosis, bladder wall thickening likely from a large prostate, and bilateral inguinal hernias. Tylenol for pain. Call your doctor to arrange a follow-up appointment, make the next available appointment. In the interim, return anytime if worse or if new symptoms develop. Forms: PCP List Discharge Date/Time: 05/27/24 18:31
[2024-05-27 17:28] LABS: BASOPHILS # (AUTO) 0.1 10^3/uL (0.0-0.1); BASOPHILS % (AUTO) 0.7 %; EOSINOPHILS # (AUTO) 0.3 10^3/uL (0.0-0.7); EOSINOPHILS % (AUTO) 3.3 %; HCT - HEMATOCRIT 29.8 % (42.0-52.0); LYMPHOCYTES # (AUTO) 1.4 10^3/uL (1.5-3.5); LYMPHOCYTES % (AUTO) 15.1 %; MEAN CORPUSCULAR HEMOGLOBIN 26.4 pg (27.0-31.0); MEAN CORPUSCULAR HGB CONC 30.2 g/dL (32.0-36.0); MEAN CORPUSCULAR VOLUME 87.4 fL (80.0-94.0); MEAN PLATELET VOLUME 10.4 fL (7.4-11.4); MONOCYTES # (AUTO) 0.8 10^3/uL (0.0-1.0); MONOCYTES % (AUTO) 8.9 %; NEUTROPHILS # (AUTO) 6.8 10^3/uL (1.5-6.6); NEUTROPHILS % (AUTO) 71.7 %; PLT - PLATELET COUNT 250 10^3/uL (130-450); RED BLOOD COUNT 3.41 10^6/uL (4.70-6.10); RED CELL DISTRIBUTION WIDTH 17.3 % (12.0-15.0); WHITE BLOOD COUNT 9.5 x10^3/uL (4.8-10.8)
[2024-05-27 17:56] LABS: ALBUMIN 3.5 g/dL (3.2-5.5); BILIRUBIN,TOTAL 0.8 mg/dL (0.2-1.0); CALCIUM 8.9 mg/dL (8.5-10.3); CREATININE 1.4 mg/dL (0.6-1.3); TOTAL PROTEIN 6.9 g/dL (6.4-8.9)
--- NOTE | 2024-05-27 18:01 | CT Report ---
PROCEDURE: Head WO INDICATIONS: Fall, head inj TECHNIQUE: Noncontrast 4.5 mm thick angled axial sections acquired from the foramen magnum to the vertex. For r adiation dose reduction, the following was used: automated exposure control, adjustment of mA and/or kV according to patient size. COMPARISON: 04/28/2024. Correlation is made with the accompanying imaging. FINDINGS: Image quality: Excellent. CSF spaces: Basal cisterns are patent. No extra-axial fluid collections. Ventricles are normal in size and shape. Brain: No midline shift. No intracranial masses or hemorrhage. Herrera-white matter interface is norm al. Skull and face: Calvarium and visualized facial bones are intact, without suspicious lesions. Sinuses: Visualized sinuses and mastoids are clear. IMPRESSION: No intracranial hemorrhage is seen. No acute intracranial pathology. Reviewed by: Riaz Frazier MD on 05/27/2024 5:00 PM LIZZ Approved by: Riaz Frazier MD on 05/27/2024 5:00 PM LIZZ Station ID: [id number]
--- NOTE | 2024-05-27 18:02 | CT Report ---
PROCEDURE: Cervical Spine WO INDICATIONS: Fall, head inj TECHNIQUE: Noncontrast 3 mm thick sections acquired from the skull base to the T4 level. Sagittal and coronal r eformats were then constructed. For radiation dose reduction, the following was used: automated exp osure control, adjustment of mA and/or kV according to patient size. COMPARISON: 04/28/2024. Correlation is made with the accompanying imaging. FINDINGS: Image quality: Excellent. Bones: No fractures or dislocations. Visualized superior ribs are intact. Multilevel levels of cervical spine degenerative change can be seen, including at least moderate disc space narrowing at C5-C6 and C6-C7. Multiple levels of significant facet hypertrophy can be seen. Soft tissues: Prevertebral soft tissues are normal in thickness. No paravertebral hematomas. No ap ical pneumothoraces. Atherosclerotic calcification is seen. IMPRESSION: Negative for cervical spine fracture. Multiple levels of cervical spine degenerative change are again seen. Reviewed by: Riaz Frazier MD on 05/27/2024 5:01 PM LIZZ Approved by: Riaz Frazier MD on 05/27/2024 5:01 PM LIZZ Station ID: [id number]
--- NOTE | 2024-05-27 18:11 | CT Report ---
PROCEDURE: Lower Extremity RT WO INDICATIONS: fall hip inj TECHNIQUE: Noncontrast 3-mm axial sections acquired from the distal tibial shaft to the talar dome, with coronal and sagittal reformats. For radiation dose reduction, the following was used: automated exposure c ontrol, adjustment of mA and/or kV according to patient size. COMPARISON: Correlation is made with the accompanying imaging. FINDINGS: Image quality: Motion artifact is noted. Bones: In this patient with this given history, scrutiny is given to the right hip. No right hip or proximal femur fracture can be seen. Generalized degenerative changes are seen, including involving the visualized lower lumbar spine. Bello ateral sacroiliac joint fusion can be seen. Soft tissues: No dilated loops of small bowel are seen. Mild distal colonic diverticulosis is seen, without findings of active diverticulitis. No free air or free fluid can be seen. Mild generalized bl adder wall thickening can be seen. Bilateral fat-containing inguinal hernias are seen. No enlarged ly mph nodes are detected. Atherosclerotic calcification is seen. Impression: Negative for right hip/proximal femur fracture. No fractures are seen elsewhere. Degenerative changes are seen, including fusion of the sacroiliac joints. Additional findings: Diverticulosis, without findings of active diverticulitis. Bladder wall thickening, bladder outlet obstruction is presumed Bilateral fat-containing inguinal hernias Reviewed by: Riaz Frazier MD on 05/27/2024 5:10 PM [id number] Approved by: Riaz Frazier MD on 05/27/2024 5:10 PM [id number] Station ID: [id number]
[2024-05-27] MEDS: ACETAMINOPHEN 500 MG TABLET PO STA (18:24)
[2024-05-27 18:38] VITALS: BP 170/77; O2SAT 99
== END 2024-05-27 18:31 | disposition home or self-care (01) ==
LOC: EDUNIT# → ED 17:08
DX: S09.90XA Unspecified injury of head, initial encounter (principal); S80.11XA Contusion of right lower leg, initial encounter; W19.XXXA Unspecified fall, initial encounter; Y93.E1 Activity, personal bathing and showering; I10 Essential (primary) hypertension; E78.00 Pure hypercholesterolemia, unspecified; G20.A1 Parkinson's disease without dyskinesia, without mention of fluctuations; I48.91 Unspecified atrial fibrillation; Z79.01 Long term (current) use of anticoagulants; Z79.899 Other long term (current) drug therapy; Z79.84 Long term (current) use of oral hypoglycemic drugs
CPT/HCPCS: 36415; 70450; 72125; 73700; 80053; 85025; 99284; A9270

== ENCOUNTER 2024-06-02 13:59 | Inpatient (IN) | payer MEDICARE, OTHER ==
[2024-06-02 14:44] LABS: BASOPHILS # (AUTO) 0.1 10^3/uL (0.0-0.1); BASOPHILS % (AUTO) 0.6 %; EOSINOPHILS # (AUTO) 0.4 10^3/uL (0.0-0.7); EOSINOPHILS % (AUTO) 3.1 %; HCT - HEMATOCRIT 28.9 % (42.0-52.0); HGB - HEMOGLOBIN 8.7 g/dL (14.0-18.0); LYMPHOCYTES # (AUTO) 0.8 10^3/uL (1.5-3.5); MEAN CORPUSCULAR HEMOGLOBIN 26.5 pg (27.0-31.0); MEAN CORPUSCULAR HGB CONC 30.1 g/dL (32.0-36.0); MEAN CORPUSCULAR VOLUME 88.1 fL (80.0-94.0); MEAN PLATELET VOLUME 10.1 fL (7.4-11.4); MONOCYTES # (AUTO) 0.7 10^3/uL (0.0-1.0); MONOCYTES % (AUTO) 5.8 %; NEUTROPHILS # (AUTO) 9.2 10^3/uL (1.5-6.6); PLT - PLATELET COUNT 300 10^3/uL (130-450); RED BLOOD COUNT 3.28 10^6/uL (4.70-6.10); RED CELL DISTRIBUTION WIDTH 17.8 % (12.0-15.0); WHITE BLOOD COUNT 11.2 x10^3/uL (4.8-10.8)
--- NOTE | 2024-06-02 15:08 | ED Physician Documentation ---
History of Present Illness - Stated complaint Stated Complaint: LT FOOT INJ, GLF - Chief complaint Chief Complaint: Trauma Ext - Additonal information Additional information: Patient is an 79-year-old male presenting from home with son after a fall trying to get into his car. Patient was in a wheelchair and was being transferred by his son into his car when he rolled his foot and went to the ground. Son said he was able to lower him to the ground slowly but continued to have significant right foot and ankle pain. Patient is on Eliquis he does not feel patient hit his head. Patient notes pain is a majority in his right ankle small abrasion to right elbow as well but no significant swelling or bruising to this area. Right ankle is holding rotation everted. PD PAST MEDICAL HISTORY - Past Medical History Cardiovascular: Hypertension, High cholesterol, Coronary artery disease, Peripheral Vascular Disease, Other Respiratory: Shortness of breath, Other Neuro: Parkinson's, Peripheral neuropathy Endocrine/Autoimmune: None GI: GERD, Colon polyps, Chronic diarrhea : Benign prostate hypertrophy, Renal insuffiency HEENT: Chronic sinusitis, Chronic hearing loss, Other Psych: Anxiety Musculoskeletal: Osteoarthritis, Gout, Chronic back pain Derm: Other - Past Surgical History Past Surgical History: Yes General: Other Ortho: Arthroscopic surgery Cardiovascular: Coronary stent, Cardiac catheterization HEENT: Cataracts, Tonsil/Adenoidectomy - Present Medications Home Medications: Ambulatory Orders Medication Instructions Recorded Confirmed Apixaban [Eliquis] 5 mg PO BID 01/08/19 03/31/24 Atorvastatin Calcium 40 mg PO QPM 01/08/19 03/31/24 Pantoprazole Sodium [Protonix] 40 mg PO DAILY 01/08/19 03/31/24 allopurinoL [Allopurinol] 100 mg PO DAILY 01/08/19 03/31/24 Losartan Potassium 12.5 mg PO DAILY 06/01/22 03/31/24 Benzonatate [Tessalon] 100 mg PO BID PRN MDD 200 02/17/24 03/31/24 DULoxetine [Cymbalta] 60 mg PO DAILY 02/17/24 03/31/24 Empagliflozin [Jardiance] 10 mg PO DAILY 02/17/24 03/31/24 Finasteride [Proscar] 5 mg PO DAILY 02/17/24 03/31/24 Torsemide 10 mg PO DAILY 02/17/24 03/31/24 carvediloL [Coreg] 25 mg PO BID 02/17/24 03/31/24 Nitroglycerin [Nitrostat] 0.4 mg SL ONCE PRN 03/31/24 03/31/24 Tamsulosin [Flomax] 0.8 mg PO QPM 03/31/24 03/31/24 - Allergies Allergies/Adverse Reactions: Allergies Allergy/AdvReac Type Severity Reaction Status Date / Time hydrocodone Allergy Unknown Verified 06/02/24 14:08 simvastatin [From Zocor] AdvReac Unknown Verified 06/02/24 14:08 - Social History Does the pt smoke?: No Smoking Status: Never smoker Does the pt drink ETOH?: No Does the pt have substance abuse?: No - Immunizations Immunizations are current?: Yes - POLST Patient has POLST: No POLST Status: Full Code PD ED PE NORMAL - Vitals Vital signs reviewed: Yes - General General: Alert and oriented X 3 - HEENT HEENT: Atraumatic - Neck Neck: Supple, no meningeal sign, No bony TTP, C-Spine cleared by NEXUS criteria - Cardiac Cardiac: RRR, No murmur, No gallop, No rub - Abdomen Abdomen: Normal bowel sounds - Male Male : Deferred - Rectal Rectal: Deferred - Derm Derm: Normal color, Warm and dry, Other (Small abrasion nonbleeding to medial malleolus of right leg.) - Extremities Extremities: Other (Obvious deformity noted to right ankle with significant rotation on eversion and swelling. Mild bruising appearing and abrasion to medial malleolus nonbleeding. No obvious open fracture DP and PT pulses 2+. Go od capillary refill. ) - Free text exam Free text exam: Tenderness on light touch to bilateral malleoli and tenderness also up fibular tenderness on right leg. Results - Vitals Vitals: Vital Signs - 24 hr 06/02/24 06/02/24 06/02/24 14:01 14:42 15:35 Temperature 36.6 C Heart Rate 65 65 67 Respiratory 18 18 20 Rate Blood Pressure 131/56 H 119/59 L 144/61 H O2 Saturation 97 94 06/02/24 16:30 Temperature Heart Rate 68 Respiratory 20 Rate Blood Pressure 173/71 H O2 Saturation 100 Oxygen O2 Source Room air - Labs Labs: Laboratory Tests 06/02/24 06/02/2424 14:34 14:34 14:34 WBC 11.2 H RBC 3.28 L Hgb 8.7 L Hct 28.9 L MCV 88.1 MCH 26.5 L MCHC 30.1 L RDW 17.8 H Plt Count 300 MPV 10.1 Neut # (Auto) 9.2 H Lymph # (Auto) 0.8 L Taliaferro # (Auto) 0.7 Eos # (Auto) 0.4 Baso # (Auto) 0.1 Absolute Nucleated RBC 0.00 Nucleated RBC % 0.0 PT 22.3 H INR 2.2 H Sodium 136 Potassium 4.1 Chloride 105 Carbon Dioxide 21 Anion Gap 10.0 BUN 25 H Creatinine 1.4 H Estimated GFR (MDRD) 49 L Glucose 145 H Calcium 9.0 Total Bilirubin 1.0 AST 10 ALT < 3 L Alkaline Phosphatase 89 Total Protein 7.1 Albumin 3.2 Globulin 3.9 Albumin/Globulin Ratio 0.8 L Lipase < 10 L - Rads (name of study) right ankle/fibula/foot Relevant Findings:: EMP independent interpretation of test CT head Relevant Findings:: EMP independent interpretation of test (no acute intracranial findings.) Procedures - Splint (location) - Minor right leg Splint applied by: Nurse, Other (Physician Director Of Early Childhood Education) Type of splint: Short leg, Posterior Other: Patient tolerated well, Other (Alignment improved with splint placement) PD Medical Decision Making - ED course Complexity details: reviewed old records, reviewed results, re-evaluated patient ED course: Patient is an 79-year-old male presents to the emergency department after a fall trying to get into the car. Patient is on Eliquis denies hitting his head no trauma alert called. Right leg held in eversion with obvious deformity and swelling to right ankle mild abrasion to medial malleolus no active bleeding. Vital stable on arrival. Physical exam does show pulses intact distally with obvious deformity and swelling pain on palpation to bilateral malleoli and fpc up the right leg. Patient able to wiggle digits 1 through 5 and good capillary refill fill intact. X-rays here in the emergency department show significant fracture to right ankle.Moderately displaced fracture of the distal fibular shaft, with angulation. There is a moderately displaced medial malleolus and a possible minimally displaced posterior malleolus fracture. The syndesmosis is and there is widening of the medial mortise. Possible syndesmotic avulsion fracture fragment also seen. Discussed with Dr. Dowling at 1546 who reviewed images of patient. Given patient is on Eliquis will plan for surgery on Wednesday or Wednesday. Recommends a temporary splint here in the ED. Discussed with hospitalist Dr. Altamirano who is agreeable with admission. Discussed and he is agreeable with patient admitted will monitor Eliquis and INR given he will have surgery planned for Wednesday. Splint applied here in emergency department he remains neurovascularly intact good capillary refill dopplerable pulses obtained shortly prior to splint being applied. Departure - Departure Disposition: ED Place in Observation Clinical Impression: Right fibular fracture, Ankle injury, Bimalleolar ankle fracture Forms: PCP List
[2024-06-02] MEDS: fentaNYL 100 MCG/2 ML VIAL IVP STA ×2 (15:14→16:38)
[2024-06-02 15:22] LABS: ALBUMIN 3.2 g/dL (3.2-5.5); ALBUMIN/GLOBULIN RATIO 0.8 (1.0-2.2); ALKALINE PHOSPHATASE 89 IU/L (42-121); ALT ALANINE AMINOTRANSFERASE < 3 IU/L (10-60); AST ASPARTATE AMINOTRANSFERASE 10 IU/L (10-42); BUN - BLOOD UREA NITROGEN 25 mg/dL (6-20); CARBON DIOXIDE - CO2 21 mmol/L (21-32); CHLORIDE 105 mmol/L (101-111); CREATININE 1.4 mg/dL (0.6-1.3); GFR - MDRD 49 (>89); GLUCOSE 145 mg/dL (74-104); LIPASE < 10 U/L (11-82); POTASSIUM 4.1 mmol/L (3.5-4.5); SODIUM 136 mmol/L (135-145); TOTAL PROTEIN 7.1 g/dL (6.4-8.9)
[2024-06-02 15:30] LABS: INR 2.2 (0.8-1.2); PT - PROTHROMBIN TIME 22.3 secs (9.9-12.6)
--- NOTE | 2024-06-02 15:40 | XRAY Report ---
PROCEDURE: Ankle 1-2V RT INDICATIONS: ankle injury TECHNIQUE: 02 views of the ankle were acquired. COMPARISON: 03/23/2024 FINDINGS: Bones: Moderately displaced fracture of the distal fibular shaft, with angulation. There is a moderat patrick displaced medial malleolus and a possible minimally displaced posterior malleolus fracture. The s yndesmosis is and there is widening of the medial mortise. Possible syndesmotic avulsion fr acture fragment also seen. Plantar calcaneal enthesopathy, including an ossified fragment the proximal plantar fascia. There are mild to moderate midfoot degenerative changes. Soft tissues: Diffuse soft tissue swelling. IMPRESSION: Unstable multi part ankle fractures as above. Reviewed by: Marino Ng MD on 06/02/2024 3:39 PM PDT Approved by: Marino Ng MD on 06/02/2024 3:39 PM PDT Station ID: [id number]
--- NOTE | 2024-06-02 15:42 | XRAY Report ---
PROCEDURE: Tib/Fib RT INDICATIONS: pain and swelling TECHNIQUE: 2 views of the tibia and fibula were acquired. COMPARISON: None. FINDINGS: Bones: The fibular fracture is moderately comminuted and has a posterior butterfly fragment. Ankle f indings are separately dictated. There is syndesmotic widening. Partially seen knee degenerative changes. Soft tissues: No suspicious calcifications. IMPRESSION: Fibular fracture is moderately comminuted with posterior butterfly fragment. Ankle fracture findings are separately dictated. Partially seen knee degenerative changes. Reviewed by: Marino Ng MD on 06/02/2024 3:41 PM PDT Approved by: Marino Ng MD on 06/02/2024 3:41 PM PDT Station ID: [id number]
--- NOTE | 2024-06-02 15:43 | XRAY Report ---
PROCEDURE: Foot 3+V RT INDICATIONS: pain and swelling TECHNIQUE: 3 views of the foot were acquired. COMPARISON: None. FINDINGS: Bones: Moderate background degenerative changes of the midfoot and forefoot. There is likely dislocat ion and comminuted fracture fragments, mildly displaced, at the third PIP. Ankle fracture findings ar e separately dictated. Soft tissues: No suspicious calcifications. IMPRESSION: Suspected mildly displaced fracture dislocation at the third PIP. Ankle findings are separately dictated. Moderate background degenerative changes Reviewed by: Marino Ng MD on 06/02/2024 3:42 PM PDT Approved by: Marino Ng MD on 06/02/2024 3:42 PM PDT Station ID: [id number]
--- NOTE | 2024-06-02 15:46 | CT Report ---
PROCEDURE: Head WO INDICATIONS: fall on blood thinners TECHNIQUE: Noncontrast 4.5 mm thick angled axial sections acquired from the foramen magnum to the vertex. For r adiation dose reduction, the following was used: automated exposure control, adjustment of mA and/or kV according to patient size. COMPARISON: 05/27/2024 FINDINGS: Image quality: Diagnostic CSF spaces: Basal cisterns are patent. Lateral ventricles are symmetric. Volume: Vascular calcifications. Periventricular white matter disease is commonly seen with chronic m icroangiopathy. Volume loss is present. These findings are moderate. Brain: No intracranial hemorrhage. Herrera-white differentiation is grossly maintained. Craniofacial structures: No significant paranasal sinus opacity. Partially empty sella IMPRESSION: No acute intracranial abnormality. Reviewed by: Marino Ng MD on 06/02/2024 3:45 PM PDT Approved by: Marino Ng MD on 06/02/2024 3:45 PM PDT Station ID: [id number]
[2024-06-02] MEDS ORDERED: ONDANSETRON 4 MG/2 ML VIAL IVP PRN (17:48)
[2024-06-02] MEDS ORDERED: ACETAMINOPHEN 325 MG TABLET PO PRN (17:48)
[2024-06-02] MEDS ORDERED: oxyCODONE 5 MG TABLET PO PRN (17:48)
--- NOTE | 2024-06-02 18:04 | HISTORY & PHYSICAL EXAMINATION ---
Chief Complaint - Chief Complaint Chief Complaint: My right foot hurts History of Present Illness - Admitted From Admitted From:: [facility] ED - History Obtained From Records Reviewed: EMR History obtained from: Patient and son Exam Limitations: Patient and family are poor historians - History of Present Illness HPI Comment/Other: Mr. Flynn is an 79-year-old gentleman with a history of hypertension, hyperlipidemia, peripheral vascular disease, coronary artery disease status post PCI in 2006 and 2016, ischemic cardiomyopathy with an LVEF of 25% status post biventricular ICD, chronic atrial fibrillation on Eliquis, CKD stage IIIb, COPD, anemia of chronic disease who presents with a fall and resultant right ankle deformity. The patient indicates that his overall health has been declining over the past couple months 2 weeks and he has been referred to a neurologist in [place] to be evaluated for possible Parkinson's disease. In the past week he has had multiple falls at home due to generalized weakness, falling bartolome roximately 7-9 times. He denies having any dizziness, palpitations, presyncope or syncope. He does feel weak in general but does think that his right leg seems a little weaker than the other leg. He did have a fall where he hit his head on 05/27/2024 and he came to the emergency department to be further evaluated. CT scan of his cervical spine along with lower extremity hip CT were negative for any acute pathology. He was ultimately discharged home. Today after he was walking in [facility] with his son, they went out to the car and he had difficulty getting in the car due to weakness. He got his right foot into the car but then lost his balance and started to fall, twisting his right foot as he fell. His right foot had an obvious deformity and EMS was contacted. In the emergency department his vitals were unremarkable however he had an obvious right ankle fracture. X-ray showed a comminuted right fibular fracture along with an unstable trimalleolar fracture. He had adequate pulses and the case was discussed with orthopedic surgeon, Dr. Dowling, who agreed to consult on the patient. As the patient is taking Eliquis, the plan is for operative evaluation in 48 hours. He was admitted for further care and evaluation. Of note a CT of his head showed no acute pathology and no evidence of acute stroke. History - Past Medical History Cardiovascular: reports: Congestive heart failure, Hypertension, High cholesterol, Coronary artery disease, Peripheral Vascular Disease, Other Respiratory: reports: Shortness of breath, Other Neuro: reports: Parkinson's, Peripheral neuropathy Endocrine/Autoimmune: reports: None GI: reports: GERD, Colon polyps, Chronic diarrhea : reports: Benign prostate hypertrophy, Renal insuffiency HEENT: reports: Chronic sinusitis, Chronic hearing loss, Other Psych: reports: Anxiety Musculoskeletal: reports: Osteoarthritis, Gout, Chronic back pain Derm: reports: Other MRSA Hx?: No - Past Surgical History General: reports: Other Ortho: reports: Arthroscopic surgery Cardiovascular: reports: Coronary stent, Pacemaker, Cardiac catheterization HEENT: reports: Cataracts, Tonsil/Adenoidectomy - Family & Social History Family History Comment/Other: Mother with a history of heart disease. Father with a history of skin cancer, alcoholism. Sudden in his brother. Daughter healthy, son w ?stroke Living Situation: With family Social History Notes: Patient had been for close to 60 years. He lives with his son. Fell in January 2022 due to severe hyperglycemia. Resulted in a hip fracture. Underwent hip replacement surgery and ultimately developed a postoperative infection and February 2022. He also has a daughter. Patient is independent in his ADLs and continues to drive. Never smoked. Rarely drinks. No history of alcohol or substance abuse. Retired. Ex marine. - Substance History Use: Uses substance without health or social issues: NONE - POLST Patient has POLST: No POLST Status: Full Code Meds/Allgy - Home Medications Home Medications: Ambulatory Orders Medication Instructions Recorded Confirmed Apixaban [Eliquis] 5 mg PO BID 01/08/19 06/02/24 Atorvastatin Calcium 40 mg PO QPM 01/08/19 06/02/24 Pantoprazole Sodium [Protonix] 40 mg PO DAILY 01/08/19 06/02/24 allopurinoL [Allopurinol] 100 mg PO DAILY 01/08/19 06/02/24 Losartan Potassium 12.5 mg PO DAILY 06/01/22 06/02/24 DULoxetine [Cymbalta] 30 mg PO DAILY 02/17/24 06/02/24 Empagliflozin [Jardiance] 10 mg PO DAILY 02/17/24 06/02/24 Finasteride [Proscar] 5 mg PO DAILY 02/17/24 06/02/24 Torsemide 10 mg PO DAILY 02/17/24 06/02/24 carvediloL [Coreg] 25 mg PO BID 02/17/24 06/02/24 Nitroglycerin [Nitrostat] 0.4 mg SL ONCE PRN 03/31/24 06/02/24 Tamsulosin [Flomax] 0.8 mg PO QPM 03/31/24 06/02/24 Benzonatate [Tessalon] 100 mg PO DAILY 06/02/24 06/02/24 Carbidopa/Levodopa 7.5 tab PO DAILY 06/02/24 06/02/24 [Carbidopa-Levodopa 25-100 Tab] Fluticasone Propion/Salmeterol 1 puffs PO BID 06/02/24 06/02/24 [Advair 250-50 Diskus] - Allergies Allergies/Adverse Reactions: Allergies Allergy/AdvReac Type Severity Reaction Status Date / Time hydrocodone Allergy Unknown Verified 06/02/24 14:08 simvastatin [From Zocor] AdvReac Unknown Verified 06/02/24 14:08 Review of Systems - Constitutional Constitutional: reports: Malaise, Weakness. denies: Fever, Chills - Eyes Eyes: denies: Blurred vision, Vision loss - Ears, Nose & Throat Ears, Nose & Throat: denies: Tinnitus, Vertigo - Cardiovascular Cariovascular: reports: Irregular heart rate. denies: Palpitations, Chest pain, Edema, Lightheadedness, Syncope, Exertional dyspnea, Orthopnea - Respiratory Respiratory: denies: Cough, Sputum production, Wheezing, Orthopnea, Pleuritic pain - Gastrointestinal Gastrointestinal: denies: Abdominal pain, Diarrhea, Black stools, Bloody stools, Nausea - Genitourinary Genitourinary: reports: Urgency, Nocturia - Musculoskeletal Musculoskeletal: reports: Muscle aches, Joint pain - Integumentary Integumentary: reports: Rash - Neurological Neurological: reports: General weakness. denies: Focal weakness - Endocrine Endocrine: denies: Polyuria - Hematologic/Lymphatic Hematologic/Lymphatic: reports: Bruising Exam - Vital Signs Reviewed Vital Signs: Yes Vital Signs: Vital Signs x48h Temp Pulse Resp BP Pulse Ox 06/02/24 16:30 68 20 173/71 H 100 06/02/24 15:35 67 20 144/61 H 94 06/02/24 14:42 65 18 119/59 L 06/02/24 14:01 36.6 C 65 18 131/56 H 97 - Physical Exam General Appearance: positive: Other (Appears chronically ill and older than stated age. Appears in pain.) Eyes Bilateral: positive: Normal inspection, PERRL, EOMI ENT: positive: No signs of dehydration, Other (Poor dentition) Neck: positive: Nml inspection, Thyroid nml, No JVD, Trachea midline Respiratory: positive: No respiratory distress, Breath sounds nml. negative: Wheezes, Rales, Rhonchi Cardiovascular: positive: No gallop, Irregularly irregular, Systolic murmur (Soft 2/6 systolic murmur at RUSB) Peripheral Pulses: positive: Other (Left DP pulse 1+, right DP pulse unable to palpate due to splint placement. Toes on right are cool with cap refill ~1 s econd.) Abdomen: positive: Non-tender, No organomegaly, Nml bowel sounds, No distention Skin: positive: No rash, Warm, Dry, Pallor Extremities: positive: Other (Right lower extremity in splint. Toes are cool and red with cap refill ~ 1 second. Able to move toes.) Neurologic/Psychiatric: positive: Oriented x3, CN's nml (2-12), Motor nml (Unable to test strength in right lower extremity due to pain from fracture), Sensation nml Sepsis Event Note (H) - Evaluation Current Stage of Sepsis: Ruled out Conclusion/Plan - Problem List (1) Trimalleolar fracture of right ankle Conclusion/Plan: He has a significant closed trimalleolar fracture of his right ankle that is acute in nature. He underwent splinting in the emergency department. -Orthopedic surgery consulted, Dr. Dowling is aware. -Last dose of Eliquis was around 10 AM on 06/02/2024. Will have to wait until Wednesday afternoon or Wednesday morning to undergo surgical repair. -As needed Tylenol, oxycodone or hydromorphone available for pain. -Will need PT/OT after surgery. Anticipate SNF placement. -He currently has no active cardiac conditions and he does have underlying CAD as well as ischemic cardiomyopathy. He does not require any acute inpatient workup of his cardiac issues however he is high risk for cardiac complications despite being medically optimized at this time. (2) Ischemic cardiomyopathy Conclusion/Plan: Follows with Dr. Abernathy in cardiology at [facility]. Has a history of an LVEF 25% in 2021 however it is unclear if he had a more recent echocardiogram through [facility]. -Status post biventricular ICD in the past. -Currently he appears euvolemic and not having any acute cardiac issues. -Continue home Coreg, atorvastatin, losartan, torsemide. (3) History of coronary artery disease Conclusion/Plan: Has a history of stenting in 1999 and 2015. He was also admitted to our facility in 2021 for pulmonary edema and NSTEMI, which was treated medically at the time. He denies any recent history of chest pain, exertional chest pain or dyspnea. -Will obtain admission EKG. Obtain admission chest x-ray as well. -Resume home cardiac medications as noted above. -As we will be holding his home Eliquis, will place on aspirin 81 mg for cardiac protection in the perioperative period. (4) Chronic atrial fibrillation Conclusion/Plan: -Resume home Coreg 25 mg twice daily. -Holding home Eliquis as noted above in anticipation for surgical repair. (5) Chronic kidney disease, stage 3b Conclusion/Plan: His renal function appears to be close to his baseline at this time. -Avoid unnecessary nephrotoxins and follow renal function closely. -Renally dose medications as appropriate. (6) BPH (benign prostatic hyperplasia) Conclusion/Plan: Continue home Flomax. Qualifiers: Lower urinary tract symptom presence: symptoms present Lower urinary tract symptom detail: incomplete bladder emptying Qualified Code(s): N40.1 - Benign prostatic hyperplasia with lower urinary tract symptoms; R39.14 - Feeling of incomplete bladder emptying (7) Chronic disease anemia Conclusion/Plan: Currently his hemoglobin appears to be around his baseline. -Monitor daily CBC. (8) COPD without exacerbation Conclusion/Plan: No acute issues at this time. Can use as needed albuterol. - Lab Results Fish Bones: 06/02/24 14:34 06/02/24 14:34 - Diagnostic Imaging Results Diagnostic Imaging Results Comments: Ankle x-ray, right: Moderately displaced fracture of the distal fibular shaft, with angulation. There is a moderately displaced medial malleolus and possible minimally displaced posterior malleolus fracture. The syndesmosis is and there is widening of the medial mortise. Possible syndesmotic avulsion fracture fragment also seen. Lower extremity x-ray, right: Fibular fracture is moderately comminuted with posterior butterfly fragment. Ankle fracture findings are separately dictated. Foot x-ray, right: Suspected mildly displaced fracture dislocation at the third PIP. Head CT: No acute intracranial abnormality. Core Measures - Anticipated LOS I expect patient to be DC'd or transferred within 96 hours.: Yes - DVT/VTE - Prophylaxis VTE/DVT Device ordered at admit?: Yes
[2024-06-02] MEDS: HYDROmorphone 0.5 MG/0.5 ML SYRINGE IVP PRN (18:27)
[2024-06-02] MEDS: PANTOPRAZOLE 40 MG TABLET PO STA (18:27)
[2024-06-02] MEDS: oxyCODONE 5 MG TABLET PO PRN (19:50)
--- NOTE | 2024-06-02 21:06 | XRAY Report ---
PROCEDURE: Chest 1V INDICATIONS: Pre-operative evaluation TECHNIQUE: One view of the chest was acquired. COMPARISON: 02/17/2024 FINDINGS: Surgical changes and devices: Left chest wall generator with cardiac leads. Lungs and pleura: No pleural effusions or pneumothorax. Lungs are clear. Mediastinum: Mediastinal contours appear normal. Heart size is mildly enlarged. Bones and chest wall: No suspicious bony lesions. Overlying soft tissues appear unremarkable. IMPRESSION: No acute cardiopulmonary process. Reviewed by: Raúl Devine MD on 06/02/2024 9:05 PM PDT Approved by: Raúl Devine MD on 06/02/2024 9:05 PM PDT Station ID: [id number]
[2024-06-02] MEDS: ATORVASTATIN 40 MG TABLET PO SCH (21:09)
[2024-06-02] MEDS: carvediloL 12.5 MG TABLET PO SCH (21:09)
[2024-06-03] MEDS: SODIUM CHLORIDE FLUSH 0.9% 10 ML SYRINGE IVP SCH (01:25)
[2024-06-03] MEDS ORDERED: hydrALAZINE 25 MG TABLET PO PRN (07:04)
[2024-06-03 07:38] LABS: CALCIUM 8.6 mg/dL (8.5-10.3); CREATININE 1.7 mg/dL (0.6-1.3); MAGNESIUM 1.9 mg/dL (1.7-2.3); POTASSIUM 4.5 mmol/L (3.5-4.5)
[2024-06-03 07:54] LABS: BASOPHILS # (AUTO) 0.1 10^3/uL (0.0-0.1); BASOPHILS % (AUTO) 0.6 %; EOSINOPHILS # (AUTO) 0.1 10^3/uL (0.0-0.7); EOSINOPHILS % (AUTO) 1.2 %; HCT - HEMATOCRIT 25.5 % (42.0-52.0); HGB - HEMOGLOBIN 7.7 g/dL (14.0-18.0); LYMPHOCYTES % (AUTO) 10.9 %; MEAN CORPUSCULAR HEMOGLOBIN 26.6 pg (27.0-31.0); MEAN CORPUSCULAR HGB CONC 30.2 g/dL (32.0-36.0); MEAN CORPUSCULAR VOLUME 88.2 fL (80.0-94.0); MEAN PLATELET VOLUME 10.6 fL (7.4-11.4); MONOCYTES # (AUTO) 0.9 10^3/uL (0.0-1.0); MONOCYTES % (AUTO) 10.2 %; NEUTROPHILS # (AUTO) 6.9 10^3/uL (1.5-6.6); NEUTROPHILS % (AUTO) 76.5 %; PLT - PLATELET COUNT 289 10^3/uL (130-450); RED BLOOD COUNT 2.89 10^6/uL (4.70-6.10); RED CELL DISTRIBUTION WIDTH 17.9 % (12.0-15.0)
[2024-06-03] MEDS ORDERED: LOSARTAN 50 MG TABLET PO SCH ×2 (09:00→10:15)
[2024-06-03] MEDS: allopurinoL 100 MG TABLET PO SCH (09:21)
[2024-06-03] MEDS: TAMSULOSIN 0.4 MG CAPSULE PO SCH (09:21)
[2024-06-03] MEDS: FINASTERIDE 5 MG TABLET PO SCH (09:21)
[2024-06-03] MEDS: TORSEMIDE 20 MG TABLET PO SCH (09:21)
[2024-06-03] MEDS: ASPIRIN EC 81 MG TABLET PO SCH (09:21)
[2024-06-03] MEDS: DULoxetine 30 MG CAPSULE PO SCH (09:21)
--- NOTE | 2024-06-03 10:32 | CONSULTATION NOTE ---
Referring Provider Consult Date: 06/03/24 History of Present Illness - History of Present Illness HPI Comment/Other: Mr. Phoenix Flynn is a 79-year-old male, who lives in a single-family home with his son, who presented into the emergency room yesterday having had a ground-level fall. He had obvious painful deformities right lower extremity. X-rays taken at that time showed a bimalleolar right ankle fracture extending into the mid shaft fibula with a disruption of the distal tibia fibula joint. Patient was worked for up for a closed head injury. Was on anticoagulation for his chronic atrial fibrillation. History - Past Medical History Cardiovascular: reports: Congestive heart failure, Hypertension, High cholesterol, Coronary artery disease, Peripheral Vascular Disease, Other Respiratory: reports: COPD, Shortness of breath, Other Neuro: reports: Parkinson's, Peripheral neuropathy Endocrine/Autoimmune: reports: None GI: reports: GERD, Colon polyps, Chronic diarrhea : reports: Benign prostate hypertrophy, Renal insuffiency HEENT: reports: Chronic sinusitis, Chronic hearing loss, Other Psych: reports: Anxiety Musculoskeletal: reports: Osteoarthritis, Gout, Chronic back pain Derm: reports: Other MRSA Hx?: No - Past Surgical History General: reports: Other Ortho: reports: Arthroscopic surgery Cardiovascular: reports: Coronary stent, Pacemaker, Cardiac catheterization HEENT: reports: Cataracts, Tonsil/Adenoidectomy - Family & Social History Family History Comment/Other: Mother with a history of heart disease. Father with a history of skin cancer, alcoholism. Sudden in his brother. Daughter healthy, son w ?stroke Living Situation: With family Social History Notes: Patient had been for close to 60 years. He lives with his son. Fell in January 2022 due to severe hyperglycemia. Resulted in a hip fracture. Underwent hip replacement surgery and ultimately developed a postoperative infection and February 2022. He also has a daughter. Patient is independent in his ADLs and continues to drive. Never smoked. Rarely drinks. No history of alcohol or substance abuse. Retired. Ex marine. - Substance History Use: Uses substance without health or social issues: NONE - POLST Patient has POLST: No POLST Status: Full Code Meds/Allgy - Home Medications Home Medications: Ambulatory Orders Medication Instructions Recorded Confirmed Apixaban [Eliquis] 5 mg PO BID 01/08/19 06/02/24 Atorvastatin Calcium 40 mg PO QPM 01/08/19 06/02/24 Pantoprazole Sodium [Protonix] 40 mg PO DAILY 01/08/19 06/02/24 allopurinoL [Allopurinol] 100 mg PO DAILY 01/08/19 06/02/24 Losartan Potassium 12.5 mg PO DAILY 06/01/22 06/02/24 DULoxetine [Cymbalta] 30 mg PO DAILY 02/17/24 06/02/24 Empagliflozin [Jardiance] 10 mg PO DAILY 02/17/24 06/02/24 Finasteride [Proscar] 5 mg PO DAILY 02/17/24 06/02/24 Torsemide 10 mg PO DAILY 02/17/24 06/02/24 carvediloL [Coreg] 25 mg PO BID 02/17/24 06/02/24 Nitroglycerin [Nitrostat] 0.4 mg SL ONCE PRN 03/31/24 06/02/24 Tamsulosin [Flomax] 0.8 mg PO QPM 03/31/24 06/02/24 Benzonatate [Tessalon] 100 mg PO DAILY 06/02/24 06/02/24 Carbidopa/Levodopa 7.5 tab PO DAILY 06/02/24 06/02/24 [Carbidopa-Levodopa 25-100 Tab] Fluticasone Propion/Salmeterol 1 puffs PO BID 06/02/24 06/02/24 [Advair 250-50 Diskus] - Allergies Allergies/Adverse Reactions: Allergies Allergy/AdvReac Type Severity Reaction Status Date / Time hydrocodone Allergy Unknown Verified 06/02/24 14:08 simvastatin [From Zocor] AdvReac Unknown Verified 06/02/24 14:08 Exam - Vital Signs Vital Signs: Vital Signs x48h Temp Pulse Resp BP Pulse Ox 06/03/24 08:00 37.0 C 72 18 185/65 H 97 - Physical Exam Comments/Other: Examination: Patient's short leg posterior splint with stirrups was loosened to examined the skin of his calf. He had multiple fracture blisters present. Superficial abrasion over the medial malleolar area. Clean and was normal not draining. Patient had decreased sensation in the first dorsal webspace (this apparently was a chronic finding on inquiring with the patient). Sensation otherwise was intact. Patient had active motion of his toes on command. Good capillary filling noted of his digits. X-rays: X-rays were taken on admission shows a bimalleolar type ankle fracture with a segmental butterfly component in the midshaft fibular region. There is also a widening of the distal tibiofibular joint with a displaced medial malleolar fragment. Conclusion/Plan - Problem List (1) Bimalleolar ankle fracture Conclusion/Plan: Plan: Due to the patient's anticoagulation due to the Eliquis medication was on preop for his chronic atrial fibrillation, would like to defer this semiurgent surgery for his ankle for 48 to 72 hours. Will tentatively schedule him for open reduction internal fixation of his ankle fracture Wednesday. His hematocrit has been drifting down over the last 24 hours and we will keep an eye on this to see if we should transfusion preoperatively. Will have him n.p.o. after midnight Wednesday night for pending surgery on Wednesday. Risk and b enefits of surgery explained to the patient. Some of the risks include blood clots a pulmonary embolus infection blood loss nerve damage malunion nonunion etc.. His questions were answered. He wishes to proceed with surgery as indicated. His leg was marked. Consent signed. Qualifiers: Encounter type: initial encounter - Lab Results Fish Bones: 06/03/24 07:15 06/03/24 07:15
--- NOTE | 2024-06-03 11:05 | PHARMACY PROGRESS NOTE ---
- Best Possible Medication History Admit Date and Time: 06/02/24 1748 Processed by: Pharmacy Secondary Source(s): Pharmacy records (COMPLETED 06/02/24 UPON ATTEMPT 06/03/24), Insurance records As the person ultimately responsible for medication therapy, providers are able to order a medication from an existing home medication list in [facility] via the "Reconcile Routine" prior to Confirmation of that medication by collection support specialist. Such practice is discouraged except when the physician, in their clinical judgment, deems that a medical need exists for a medication without regard to previous use.
--- NOTE | 2024-06-03 13:17 | PROVIDER PROGRESS NOTE ---
Subjective - Prog Note Date Prog Note Date: 06/03/24 Prog Note Time: 13:15 - Subjective Pt reports feeling: No change Subjective: No acute events overnight. He reports the pain is overall improved compared to yesterday in his right ankle however he still rates it a 9 out of 10. Denies having any chest pain, palpitations, dyspnea, orthopnea, PND, cough, nausea, vomiting or diarrhea. Objective - Vital Signs/Intake & Output Reviewed Vital Signs: Yes Vital Signs: Vital Signs x48h Temp Pulse Resp BP Pulse Ox 06/03/24 08:00 37.0 C 72 18 185/65 H 97 Intake & Output: Intake & Output 05/31/24 06/01/24 06/02/24 06/03/24 23:59 23:59 23:59 23:59 Intake Total 150 120 Balance 150 120 - Objective General Appearance: positive: Other (Appears chronically ill and older than stated age. No acute distress.) Eyes Bilateral: positive: Normal inspection, PERRL, EOMI ENT: positive: ENT inspection nml, Pharynx nml, No signs of dehydration Neck: positive: Nml inspection, Thyroid nml, No JVD, Trachea midline Respiratory: positive: No respiratory distress, Breath sounds nml. negative: Wheezes, Rales, Rhonchi Cardiovascular: positive: No gallop, Irregularly irregular, Systolic murmur (Soft 2/6 systolic murmur at the right upper sternal border) Abdomen: positive: Non-tender, No organomegaly, Nml bowel sounds, No distention Skin: positive: No rash, Warm, Dry Extremities: positive: Other (Right foot in a splint. Right toes are slightly ritu but not cyanotic. Cap refill is less than 1 second.) Neurologic/Psychiatric: positive: Oriented x3, CN's nml (2-12), Motor nml, Sensation nml - Lab Results Fish Bones: 06/03/24 07:15 06/03/24 07:15 Other Labs: Lab Results x24hrs 06/03/24 06/03/24 06/03/24 Range/Units 07:15 07:15 07:15 WBC 9.0 (4.8-10.8) x10^3/uL RBC 2.89 L (4.70-6.10) 10^6/uL Hgb 7.7 L (14.0-18.0) g/dL Hct 25.5 L (42.0-52.0) % MCV 88.2 (80.0-94.0) fL MCH 26.6 L (27.0-31.0) pg MCHC 30.2 L (32.0-36.0) g/dL RDW 17.9 H (12.0-15.0) % Plt Count 289 (130-450) 10^3/uL MPV 10.6 (7.4-11.4) fL Neut # (Auto) 6.9 H (1.5-6.6) 10^3/uL Lymph # (Auto) 1.0 L (1.5-3.5) 10^3/uL [place] # (Auto) 0.9 (0.0-1.0) 10^3/uL Eos # (Auto) 0.1 (0.0-0.7) 10^3/uL Baso # (Auto) 0.1 (0.0-0.1) 10^3/uL Absolute Nucleated RBC 0.00 x10^3/uL Nucleated RBC % 0.0 /100WBC PT (9.9-12.6) secs INR (0.8-1.2) Sodium 137 (135-145) mmol/L Potassium 4.5 (3.5-4.5) mmol/L Chloride 105 (101-111) mmol/L Carbon Dioxide 24 (21-32) mmol/L Anion Gap 8.0 (6-13) BUN 29 H (6-20) mg/dL Creatinine 1.7 H (0.6-1.3) mg/dL Estimated GFR (MDRD) 39 L (>89) Glucose 123 H (74-104) mg/dL Calcium 8.6 (8.5-10.3) mg/dL Magnesium 1.9 (1.7-2.3) mg/dL Total Bilirubin (0.2-1.0) mg/dL AST (10-42) IU/L ALT (10-60) IU/L Alkaline Phosphatase (42-121) IU/L Total Protein (6.4-8.9) g/dL Albumin (3.2-5.5) g/dL Globulin (2.1-4.2) g/dL Albumin/Globulin Ratio (1.0-2.2) Lipase (11-82) U/L Blood Type O POSITIVE Blood Type Recheck Antibody Screen NEGATIVE 06/02/24 06/02/24 06/02/24 Range/Units 14:34 14:34 14:34 WBC (4.8-10.8) x10^3/uL RBC (4.70-6.10) 10^6/uL Hgb (14.0-18.0) g/dL Hct (42.0-52.0) % MCV (80.0-94.0) fL MCH (27.0-31.0) pg MCHC (32.0-36.0) g/dL RDW (12.0-15.0) % Plt Count (130-450) 10^3/uL MPV (7.4-11.4) fL Neut # (Auto) (1.5-6.6) 10^3/uL Lymph # (Auto) (1.5-3.5) 10^3/uL [place] # (Auto) (0.0-1.0) 10^3/uL Eos # (Auto) (0.0-0.7) 10^3/uL Baso # (Auto) (0.0-0.1) 10^3/uL Absolute Nucleated RBC x10^3/uL Nucleated RBC % /100WBC PT 22.3 H (9.9-12.6) secs INR 2.2 H (0.8-1.2) Sodium 136 (135-145) mmol/L Potassium 4.1 (3.5-4.5) mmol/L Chloride 105 (101-111) mmol/L Carbon Dioxide 21 (21-32) mmol/L Anion Gap 10.0 (6-13) BUN 25 H (6-20) mg/dL Creatinine 1.4 H (0.6-1.3) mg/dL Estimated GFR (MDRD) 49 L (>89) Glucose 145 H (74-104) mg/dL Calcium 9.0 (8.5-10.3) mg/dL Magnesium (1.7-2.3) mg/dL Total Bilirubin 1.0 (0.2-1.0) mg/dL AST 10 (10-42) IU/L ALT < 3 L (10-60) IU/L Alkaline Phosphatase 89 (42-121) IU/L Total Protein 7.1 (6.4-8.9) g/dL Albumin 3.2 (3.2-5.5) g/dL Globulin 3.9 (2.1-4.2) g/dL Albumin/Globulin Ratio 0.8 L (1.0-2.2) Lipase < 10 L (11-82) U/L Blood Type Blood Type Recheck O POSITIVE Antibody Screen 06/02/24 Range/Units 14:34 WBC 11.2 H (4.8-10.8) x10^3/uL RBC 3.28 L (4.70-6.10) 10^6/uL Hgb 8.7 L (14.0-18.0) g/dL Hct 28.9 L (42.0-52.0) % MCV 88.1 (80.0-94.0) fL MCH 26.5 L (27.0-31.0) pg MCHC 30.1 L (32.0-36.0) g/dL RDW 17.8 H (12.0-15.0) % Plt Count 300 (130-450) 10^3/uL MPV 10.1 (7.4-11.4) fL Neut # (Auto) 9.2 H (1.5-6.6) 10^3/uL Lymph # (Auto) 0.8 L (1.5-3.5) 10^3/uL [place] # (Auto) 0.7 (0.0-1.0) 10^3/uL Eos # (Auto) 0.4 (0.0-0.7) 10^3/uL Baso # (Auto) 0.1 (0.0-0.1) 10^3/uL Absolute Nucleated RBC 0.00 x10^3/uL Nucleated RBC % 0.0 /100WBC PT (9.9-12.6) secs INR (0.8-1.2) Sodium (135-145) mmol/L Potassium (3.5-4.5) mmol/L Chloride (101-111) mmol/L Carbon Dioxide (21-32) mmol/L Anion Gap (6-13) BUN (6-20) mg/dL Creatinine (0.6-1.3) mg/dL Estimated GFR (MDRD) (>89) Glucose (74-104) mg/dL Calcium (8.5-10.3) mg/dL Magnesium (1.7-2.3) mg/dL Total Bilirubin (0.2-1.0) mg/dL AST (10-42) IU/L ALT (10-60) IU/L Alkaline Phosphatase (42-121) IU/L Total Protein (6.4-8.9) g/dL Albumin (3.2-5.5) g/dL Globulin (2.1-4.2) g/dL Albumin/Globulin Ratio (1.0-2.2) Lipase (11-82) U/L Blood Type Blood Type Recheck Antibody Screen Sepsis Event Note (H) - Evaluation Current Stage of Sepsis: Ruled out Assessment/Plan - Problem List (1) Bimalleolar fracture of right ankle Impression: He has a significant closed bimalleolar fracture of his right ankle that is acute in nature (initially documented incorrectly as trimalleolar). He underwent splinting in the emergency department. -Orthopedic surgery consulted, Dr. Dowling following. -Last dose of Eliquis was around 10 AM on 06/02/2024. Planning for operative management on Wednesday afternoon. -As needed Tylenol, oxycodone or hydromorphone available for pain. -Will need PT/OT after surgery. Anticipate SNF placement. -He currently has 0/4 active cardiac conditions though he does have underlying CAD as well as ischemic cardiomyopathy. Neither diagnosis are decompensated at this time. He does not require any acute inpatient workup of his cardiac issues however he is high risk for cardiac complications despite being medically optimized at this time. -May consider PRBC transfusion tomorrow pre-operatively if his hemoglobin remains < 8. Qualifiers: Encounter type: initial encounter Fracture type: closed Qualified Code(s): S82.841A - Displaced bimalleolar fracture of right lower leg, initial encounter for closed fracture (2) Ischemic cardiomyopathy Impression: Follows with Dr. Abernathy in cardiology at [facility] cardiology clinic. Has a history of an LVEF 25% in 2021 however it is unclear if he had a more rec ent echocardiogram through [facility]. -Status post biventricular ICD in the past. -Currently he appears euvolemic and not having any acute cardiac issues. -Continue home Coreg, atorvastatin, losartan, torsemide. (3) History of coronary artery disease Impression: Has a history of stenting in 1999 and 2015. He was also admitted to our facility in 2021 for pulmonary edema and NSTEMI, which was treated medically at the time. He denies any recent history of chest pain, exertional chest pain or dyspnea. -Resumed home cardiac medications as noted above. -As we will be holding his home Eliquis, will place on aspirin 81 mg for cardiac protection in the perioperative period. Once safe to do so after operation, can resume Eliquis and discontinue Aspirin. (4) Chronic atrial fibrillation Impression: -Continue home Coreg 25 mg twice daily. -Holding home Eliquis as noted above in anticipation for surgical repair. (5) Chronic kidney disease, stage 3b Impression: His renal function appears to be close to his baseline at this time. -Avoid unnecessary nephrotoxins and follow renal function closely. -Renally dose medications as appropriate. (6) Chronic disease anemia Impression: Currently his hemoglobin baseline is around 8-9. -Monitor daily CBC. -If hemoglobin is still < 8 tomorrow, could consider transfusion in the pre- operative period given his underlying CAD. (7) COPD without exacerbation Impression: No acute issues currently. -PRN Albuterol.
[2024-06-03] MEDS ORDERED: ALBUTEROL NEB 2.5 MG/3 ML INH PRN (13:25)
[2024-06-03 14:54] LABS: BILIRUBIN,URINE NEGATIVE (NEGATIVE); GLUCOSE, URINE (UA) >=1000 mg/dL (NEGATIVE); KETONES,URINE (UA) NEGATIVE (NEGATIVE); LEUKOCYTE ESTERASE, URINE TRACE (NEGATIVE); NITRITE,URINE NEGATIVE (NEGATIVE); OCCULT BLOOD,URINE NEGATIVE (NEGATIVE); PROTEIN,URINE TRACE mg/dL (NEGATIVE); UROBILINOGEN,URINE 1 (NORMAL) E.U./dL (NORMAL)
[2024-06-03 15:05] LABS: BACTERIA,URINE Few /HPF (None Seen); CLARITY,URINE HAZY (CLEAR); RBC,URINE 0-5 /HPF (0-5); SQUAMOUS EPITHELIAL CELL,UR FEW Squamous (<= Few); WBC CLUMPS,URINE PRESENT; WBC,URINE >25 /HPF (0-3)
[2024-06-03] MEDS: COD LIVER OIL/ZINC OXIDE 113 GM TUBE TOP SCH (17:04)
[2024-06-03] MEDS: cefTRIAXone 1 GM in SODIUM CHLORIDE 0.9% MINIBAG 100 ML IV SCH (18:23)
[2024-06-04 05:47] LABS: BASOPHILS # (AUTO) 0.1 10^3/uL (0.0-0.1); BASOPHILS % (AUTO) 0.4 %; EOSINOPHILS # (AUTO) 0.1 10^3/uL (0.0-0.7); EOSINOPHILS % (AUTO) 0.4 %; HCT - HEMATOCRIT 22.8 % (42.0-52.0); HGB - HEMOGLOBIN 7.1 g/dL (14.0-18.0); LYMPHOCYTES # (AUTO) 1.4 10^3/uL (1.5-3.5); LYMPHOCYTES % (AUTO) 10.3 %; MEAN CORPUSCULAR HEMOGLOBIN 26.9 pg (27.0-31.0); MEAN CORPUSCULAR HGB CONC 31.1 g/dL (32.0-36.0); MEAN CORPUSCULAR VOLUME 86.4 fL (80.0-94.0); MEAN PLATELET VOLUME 10.8 fL (7.4-11.4); MONOCYTES # (AUTO) 1.4 10^3/uL (0.0-1.0); MONOCYTES % (AUTO) 10.4 %; NEUTROPHILS # (AUTO) 10.6 10^3/uL (1.5-6.6); NEUTROPHILS % (AUTO) 77.9 %; PLT - PLATELET COUNT 286 10^3/uL (130-450); RED BLOOD COUNT 2.64 10^6/uL (4.70-6.10); WHITE BLOOD COUNT 13.6 x10^3/uL (4.8-10.8)
[2024-06-04 06:09] LABS: CALCIUM 8.3 mg/dL (8.5-10.3); POTASSIUM 4.3 mmol/L (3.5-4.5)
[2024-06-04 06:13] LABS: INR 1.9 (0.8-1.2)
[2024-06-04] MEDS: SODIUM CHLORIDE 0.9% 1,000 ML IV SCH (07:43)
[2024-06-04 07:46] LABS: ABSOLUTE RETICS # AUTO 0.08 10^6/uL (0.020-0.110); RED BLOOD COUNT 2.65 10^6/uL (4.70-6.10)
[2024-06-04 07:49] LABS: ALBUMIN 3.1 g/dL (3.2-5.5)
[2024-06-04 07:55] LABS: ALKALINE PHOSPHATASE 73 IU/L (42-121); ALT ALANINE AMINOTRANSFERASE 10 IU/L (10-60); AST ASPARTATE AMINOTRANSFERASE 18 IU/L (10-42); IRON < 10 ug/dL (50-212); TOTAL IRON BINDING CAPACITY 259 ug/dL (250-450); TOTAL PROTEIN 7.2 g/dL (6.4-8.9); TRANSFERRIN 185 mg/dL (203-362)
[2024-06-04 08:11] LABS: FERRITIN 71.4 ng/mL (23.9-336.2)
[2024-06-04] MEDS: polyethylene glycoL 3350 17 GM PACKET PO SCH (08:25)
[2024-06-04] MEDS: allopurinoL 100 MG TABLET PO SCH (10:33)
--- NOTE | 2024-06-04 11:40 | PROVIDER PROGRESS NOTE ---
Subjective - Prog Note Date Prog Note Date: 06/04/24 Prog Note Time: 11:38 - Subjective Pt reports feeling: No change Objective - Vital Signs/Intake & Output Vital Signs: Vital Signs x48h Temp Pulse Resp BP Pulse Ox 06/04/24 08:00 37.2 C 83 20 136/59 H 96 Intake & Output: Intake & Output 06/01/24 06/02/24 06/03/24 06/04/24 23:59 23:59 23:59 23:59 Intake Total 150 340 120 Balance 150 340 120 - Lab Results Fish Bones: 06/04/24 05:25 06/04/24 05:25 Other Labs: Lab Results x24hrs 06/04/24 06/04/24 06/04/24 Range/Units 07:20 07:20 05:25 WBC (4.8-10.8) x10^3/uL RBC 2.65 L (4.70-6.10) 10^6/uL Hgb (14.0-18.0) g/dL Hct (42.0-52.0) % MCV (80.0-94.0) fL MCH (27.0-31.0) pg MCHC (32.0-36.0) g/dL RDW (12.0-15.0) % Plt Count (130-450) 10^3/uL MPV (7.4-11.4) fL Reticulocyte % (Auto) 3.00 H (0.5-2.3) % Neut # (Auto) (1.5-6.6) 10^3/uL Lymph # (Auto) (1.5-3.5) 10^3/uL [place] # (Auto) (0.0-1.0) 10^3/uL Eos # (Auto) (0.0-0.7) 10^3/uL Baso # (Auto) (0.0-0.1) 10^3/uL Absolute Nucleated RBC x10^3/uL Nucleated RBC % /100WBC Absolute Retic 0.080 (0.020-0.110) 10^6/uL PT 20.0 H (9.9-12.6) secs INR 1.9 H (0.8-1.2) Sodium (135-145) mmol/L Potassium (3.5-4.5) mmol/L Chloride (101-111) mmol/L Carbon Dioxide (21-32) mmol/L Anion Gap (6-13) BUN (6-20) mg/dL Creatinine (0.6-1.3) mg/dL Estimated GFR (MDRD) (>89) Glucose (74-104) mg/dL Calcium (8.5-10.3) mg/dL Iron < 10 L (50-212) ug/dL TIBC 259 (250-450) ug/dL % Saturation TNP Transferrin 185 L (203-362) mg/dL Ferritin 71.4 (23.9-336.2) ng/mL Total Bilirubin 1.0 (0.2-1.0) mg/dL Direct Bilirubin 0.30 H (0.03-0.18) mg/dL AST 18 (10-42) IU/L ALT 10 (10-60) IU/L Alkaline Phosphatase 73 (42-121) IU/L Total Protein 7.2 (6.4-8.9) g/dL Albumin 3.1 L (3.2-5.5) g/dL Globulin 4.1 (2.1-4.2) g/dL Urine Color Urine Clarity (CLEAR) Urine pH (5.0-7.5) PH Ur Specific [place] (1.002-1.030) Urine Protein (NEGATIVE) mg/dL Urine Glucose (UA) (NEGATIVE) mg/dL Urine Ketones (NEGATIVE) mg/dL Urine Occult Blood (NEGATIVE) Urine Nitrite (NEGATIVE) Urine Bilirubin (NEGATIVE) Urine Urobilinogen (NORMAL) E.U./dL Ur Leukocyte Esterase (NEGATIVE) Urine RBC (0-5) /HPF Urine WBC (0-3) /HPF Urine WBC Clumps Ur Squamous Epith Cells (<= Few) Urine Bacteria (None Seen) /HPF Urine Culture Comments 06/04/24 06/04/24 06/03/24 Range/Units 05:25 05:25 14:30 WBC 13.6 H (4.8-10.8) x10^3/uL RBC 2.64 L (4.70-6.10) 10^6/uL Hgb 7.1 L (14.0-18.0) g/dL Hct 22.8 L (42.0-52.0) % MCV 86.4 (80.0-94.0) fL MCH 26.9 L (27.0-31.0) pg MCHC 31.1 L (32.0-36.0) g/dL RDW 18.0 H (12.0-15.0) % Plt Count 286 (130-450) 10^3/uL MPV 10.8 (7.4-11.4) fL Reticulocyte % (Auto) (0.5-2.3) % Neut # (Auto) 10.6 H (1.5-6.6) 10^3/uL Lymph # (Auto) 1.4 L (1.5-3.5) 10^3/uL [place] # (Auto) 1.4 H (0.0-1.0) 10^3/uL Eos # (Auto) 0.1 (0.0-0.7) 10^3/uL Baso # (Auto) 0.1 (0.0-0.1) 10^3/uL Absolute Nucleated RBC 0.00 x10^3/uL Nucleated RBC % 0.0 /100WBC Absolute Retic (0.020-0.110) 10^6/uL PT (9.9-12.6) secs INR (0.8-1.2) Sodium 136 (135-145) mmol/L Potassium 4.3 (3.5-4.5) mmol/L Chloride 105 (101-111) mmol/L Carbon Dioxide 22 (21-32) mmol/L Anion Gap 9.0 (6-13) BUN 37 H (6-20) mg/dL Creatinine 2.0 H (0.6-1.3) mg/dL Estimated GFR (MDRD) 32 L (>89) Glucose 131 H (74-104) mg/dL Calcium 8.3 L (8.5-10.3) mg/dL Iron (50-212) ug/dL TIBC (250-450) ug/dL % Saturation Transferrin (203-362) mg/dL Ferritin (23.9-336.2) ng/mL Total Bilirubin (0.2-1.0) mg/dL Direct Bilirubin (0.03-0.18) mg/dL AST (10-42) IU/L ALT (10-60) IU/L Alkaline Phosphatase (42-121) IU/L Total Protein (6.4-8.9) g/dL Albumin (3.2-5.5) g/dL Globulin (2.1-4.2) g/dL Urine Color YELLOW Urine Clarity HAZY (CLEAR) Urine pH 6.0 (5.0-7.5) PH Ur Specific [place] 1.020 (1.002-1.030) Urine Protein TRACE (NEGATIVE) mg/dL Urine Glucose (UA) >=1000 H (NEGATIVE) mg/dL Urine Ketones NEGATIVE (NEGATIVE) mg/dL Urine Occult Blood NEGATIVE (NEGATIVE) Urine Nitrite NEGATIVE (NEGATIVE) Urine Bilirubin NEGATIVE (NEGATIVE) Urine Urobilinogen 1 (NORMAL) (NORMAL) E.U./dL Ur Leukocyte Esterase TRACE H (NEGATIVE) Urine RBC 0-5 (0-5) /HPF Urine WBC >25 H (0-3) /HPF Urine WBC Clumps PRESENT Ur Squamous Epith Cells FEW Squamous (<= Few) Urine Bacteria Few (None Seen) /HPF Urine Culture Comments INDICATED - Other Results/Comments Other Results/Comments: Examination: Patient's sensation was unchanged from before. Still has some hypnesthesia primarily in the first dorsal webspace. Still has active motion of his toes on command. Good capillary filling of the toe nailbed noted. Sepsis Event Note (H) - Evaluation Current Stage of Sepsis: Ruled out Assessment/Plan - Problem List (1) Bimalleolar ankle fracture Impression: Patient's condition appears to be stable. Plan: Agree with the proceeding with preoperative transfusion and review of his low blood count. Anticipate proceeding as planned for open duction internal fixation of his right ankle fracture tomorrow afternoon. His INR should be improved by then. Qualifiers: Encounter type: initial encounter Fracture type: closed Laterality: right Qualified Code(s): S82.841A - Displaced bimalleolar fracture of right lower leg, initial encounter for closed fracture
--- NOTE | 2024-06-04 13:40 | PROVIDER PROGRESS NOTE ---
Subjective - Prog Note Date Prog Note Date: 06/04/24 Prog Note Time: 13:37 - Subjective Pt reports feeling: No change Subjective: Yesterday afternoon the patient was noted to be more disoriented than at the time of admission. This appeared to be a metabolic encephalopathy with disorientation to place, situation, date. A urinalysis was obtained that was concerning for UTI and he was placed on IV ceftriaxone. This morning he remains disoriented however no clinical worsening and no focal neurologic deficit. His labs show a decrease in his hemoglobin down to 7.1 along with worsening renal function with a creatinine of 2.0. He has not had any bleeding complications since he has been here. Remains afebrile and blood pressure has been labile between 120 to 180 systolic. Objective - Vital Signs/Intake & Output Reviewed Vital Signs: Yes Vital Signs: Vital Signs x48h Temp Pulse Resp BP Pulse Ox 06/04/24 08:00 37.2 C 83 20 136/59 H 96 Intake & Output: Intake & Output 06/01/24 06/02/24 06/03/24 06/04/24 23:59 23:59 23:59 23:59 Intake Total 150 340 120 Balance 150 340 120 - Objective General Appearance: positive: Other (Alert but oriented only to name. Follows commands and has no focal neurologic deficit. Appears acutely and chronically ill.) Eyes Bilateral: positive: Normal inspection, PERRL, EOMI ENT: positive: No signs of dehydration, Other (Poor dentition) Neck: positive: Nml inspection, Thyroid nml, No JVD, Trachea midline Respiratory: positive: No respiratory distress, Breath sounds nml. negative: Wheezes, Rales, Rhonchi Cardiovascular: positive: No gallop, Irregularly irregular, Systolic murmur (Soft 2/6 systolic murmur at the right upper sternal border) Abdomen: positive: Non-tender, No organomegaly, Nml bowel sounds, No distention Skin: positive: Warm, Dry, Other (Scattered ecchymoses on extremities) Extremities: positive: Other (Right foot in a splint, right toes are normal color, no cyanosis. Cap refill is less than 1 second.) Neurologic/Psychiatric: positive: Other (Alert, oriented to person. Disoriented to place, situation, date/year. No focal neurologic deficit. Strength testing diffusely weak in all 4 extremities however all extremities are equal bilaterally. Unable to test Babinski on right due to splint. Downgoing Babinski on left. Face is symmetric.) - Lab Results Fish Bones: 06/04/24 05:25 06/04/24 05:25 Other Labs: Lab Results x24hrs 06/04/24 06/04/24 06/04/24 Range/Units 07:20 07:20 05:25 WBC (4.8-10.8) x10^3/uL RBC 2.65 L (4.70-6.10) 10^6/uL Hgb (14.0-18.0) g/dL Hct (42.0-52.0) % MCV (80.0-94.0) fL MCH (27.0-31.0) pg MCHC (32.0-36.0) g/dL RDW (12.0-15.0) % Plt Count (130-450) 10^3/uL MPV (7.4-11.4) fL Reticulocyte % (Auto) 3.00 H (0.5-2.3) % Neut # (Auto) (1.5-6.6) 10^3/uL Lymph # (Auto) (1.5-3.5) 10^3/uL Sunflower # (Auto) (0.0-1.0) 10^3/uL Eos # (Auto) (0.0-0.7) 10^3/uL Baso # (Auto) (0.0-0.1) 10^3/uL Absolute Nucleated RBC x10^3/uL Nucleated RBC % /100WBC Absolute Retic 0.080 (0.020-0.110) 10^6/uL PT 20.0 H (9.9-12.6) secs INR 1.9 H (0.8-1.2) Sodium (135-145) mmol/L Potassium (3.5-4.5) mmol/L Chloride (101-111) mmol/L Carbon Dioxide (21-32) mmol/L Anion Gap (6-13) BUN (6-20) mg/dL Creatinine (0.6-1.3) mg/dL Estimated GFR (MDRD) (>89) Glucose (74-104) mg/dL Calcium (8.5-10.3) mg/dL Iron < 10 L (50-212) ug/dL TIBC 259 (250-450) ug/dL % Saturation TNP Transferrin 185 L (203-362) mg/dL Ferritin 71.4 (23.9-336.2) ng/mL Total Bilirubin 1.0 (0.2-1.0) mg/dL Direct Bilirubin 0.30 H (0.03-0.18) mg/dL AST 18 (10-42) IU/L ALT 10 (10-60) IU/L Alkaline Phosphatase 73 (42-121) IU/L Total Protein 7.2 (6.4-8.9) g/dL Albumin 3.1 L (3.2-5.5) g/dL Globulin 4.1 (2.1-4.2) g/dL Urine Color Urine Clarity (CLEAR) Urine pH (5.0-7.5) PH Ur Specific Hamill (1.002-1.030) Urine Protein (NEGATIVE) mg/dL Urine Glucose (UA) (NEGATIVE) mg/dL Urine Ketones (NEGATIVE) mg/dL Urine Occult Blood (NEGATIVE) Urine Nitrite (NEGATIVE) Urine Bilirubin (NEGATIVE) Urine Urobilinogen (NORMAL) E.U./dL Ur Leukocyte Esterase (NEGATIVE) Urine RBC (0-5) /HPF Urine WBC (0-3) /HPF Urine WBC Clumps Ur Squamous Epith Cells (<= Few) Urine Bacteria (None Seen) /HPF Urine Culture Comments 06/04/24 06/04/24 06/03/24 Range/Units 05:25 05:25 14:30 WBC 13.6 H (4.8-10.8) x10^3/uL RBC 2.64 L (4.70-6.10) 10^6/uL Hgb 7.1 L (14.0-18.0) g/dL Hct 22.8 L (42.0-52.0) % MCV 86.4 (80.0-94.0) fL MCH 26.9 L (27.0-31.0) pg MCHC 31.1 L (32.0-36.0) g/dL RDW 18.0 H (12.0-15.0) % Plt Count 286 (130-450) 10^3/uL MPV 10.8 (7.4-11.4) fL Reticulocyte % (Auto) (0.5-2.3) % Neut # (Auto) 10.6 H (1.5-6.6) 10^3/uL Lymph # (Auto) 1.4 L (1.5-3.5) 10^3/uL Sunflower # (Auto) 1.4 H (0.0-1.0) 10^3/uL Eos # (Auto) 0.1 (0.0-0.7) 10^3/uL Baso # (Auto) 0.1 (0.0-0.1) 10^3/uL Absolute Nucleated RBC 0.00 x10^3/uL Nucleated RBC % 0.0 /100WBC Absolute Retic (0.020-0.110) 10^6/uL PT (9.9-12.6) secs INR (0.8-1.2) Sodium 136 (135-145) mmol/L Potassium 4.3 (3.5-4.5) mmol/L Chloride 105 (101-111) mmol/L Carbon Dioxide 22 (21-32) mmol/L Anion Gap 9.0 (6-13) BUN 37 H (6-20) mg/dL Creatinine 2.0 H (0.6-1.3) mg/dL Estimated GFR (MDRD) 32 L (>89) Glucose 131 H (74-104) mg/dL Calcium 8.3 L (8.5-10.3) mg/dL Iron (50-212) ug/dL TIBC (250-450) ug/dL % Saturation Transferrin (203-362) mg/dL Ferritin (23.9-336.2) ng/mL Total Bilirubin (0.2-1.0) mg/dL Direct Bilirubin (0.03-0.18) mg/dL AST (10-42) IU/L ALT (10-60) IU/L Alkaline Phosphatase (42-121) IU/L Total Protein (6.4-8.9) g/dL Albumin (3.2-5.5) g/dL Globulin (2.1-4.2) g/dL Urine Color YELLOW Urine Clarity HAZY (CLEAR) Urine pH 6.0 (5.0-7.5) PH Ur Specific Hamill 1.020 (1.002-1.030) Urine Protein TRACE (NEGATIVE) mg/dL Urine Glucose (UA) >=1000 H (NEGATIVE) mg/dL Urine Ketones NEGATIVE (NEGATIVE) mg/dL Urine Occult Blood NEGATIVE (NEGATIVE) Urine Nitrite NEGATIVE (NEGATIVE) Urine Bilirubin NEGATIVE (NEGATIVE) Urine Urobilinogen 1 (NORMAL) (NORMAL) E.U./dL Ur Leukocyte Esterase TRACE H (NEGATIVE) Urine RBC 0-5 (0-5) /HPF Urine WBC >25 H (0-3) /HPF Urine WBC Clumps PRESENT Ur Squamous Epith Cells FEW Squamous (<= Few) Urine Bacteria Few (None Seen) /HPF Urine Culture Comments INDICATED Sepsis Event Note (H) - Evaluation Current Stage of Sepsis: Ruled out Assessment/Plan - Problem List (1) Bimalleolar fracture of right ankle Impression: He has a significant closed bimalleolar fracture of his right ankle that is acute in nature (initially documented incorrectly as trimalleolar). He underwent splinting in the emergency department. -Orthopedic surgery consulted, Dr. Dowling following. -Last dose of Eliquis was around 10 AM on 06/02/2024. Planning for operative management on Wednesday afternoon. -As needed Tylenol, oxycodone or hydromorphone available for pain. -Will need PT/OT after surgery. Anticipate SNF placement. -He currently has 0/4 active cardiac conditions though he does have underlying CAD as well as ischemic cardiomyopathy. Neither diagnoses are decompensated at this time. He does not require any acute inpatient workup of his cardiac issues however he is high risk for cardiac complications despite being medically optimized at this time. Qualifiers: Encounter type: initial encounter Fracture type: closed Qualified Code(s): S82.841A - Displaced bimalleolar fracture of right lower leg, initial encounter for closed fracture (2) Acute cystitis without hematuria Impression: Is unclear whether he has had specific urinary symptoms however he does appear disoriented and family indicate that he has had increasing weakness for the several days prior to admission leading to frequent falls. -Placed on IV ceftriaxone yesterday. -Urine cultures are growing Enterococcus species. -Will change antibiotics to IV Unasyn. -Final sensitivities will hopefully result tomorrow. (3) Acute metabolic encephalopathy Impression: In the past 24 hours he has developed confusion and disorientation. Speaking with family they have noted that he has had a decline in cognitive status over the past week preceding hospitalization. -This is likely secondary to his underlying UTI. May be compounded currently due to narcotic usage for his right ankle. -Treat UTI as noted above. -Minimize narcotics if able. -If he worsens, would obtain CT head however he has no focal neurologic deficit at this time. (4) Chronic disease anemia Impression: He has baseline anemia of chronic disease and anemia of CKD with a hemoglobin typically ranging from 9-10. -Hemoglobin has been dropping since admission and today is 7.1. -No evidence of any bleeding into his leg and no evidence of GI bleeding or intra-abdominal bleeding. -Likely has worsening anemia of chronic disease in the setting of acute illness. -Will transfuse 1 unit PRBC today given his underlying cardiac disease and plan for operation tomorrow. -Daily CBC. (5) Chronic kidney disease, stage 3b Impression: His baseline renal function varies around creatinine of 1.6-2.0. -Avoid unnecessary nephrotoxins and follow renal function closely. -Renally dose medications as appropriate. -Creatinine is worse today compared to admission but comparable to baseline. -Will hold losartan and torsemide for now in anticipation of surgery tomorrow and due to increasing creatinine. -Monitor daily BMP. (6) Ischemic cardiomyopathy Impression: Follows with Dr. Abernathy in cardiology at [facility] cardiology clinic. Has a history of an LVEF 25% in 2021 however it is unclear if he had a more recent echocardiogram through [facility]. -Status post biventricular ICD in the past. -Currently he appears euvolemic and not having any acute cardiac issues. -Continue home Coreg, atorvastatin. Holding losartan, torsemide due to increasing creatinine. (7) History of coronary artery disease Impression: Has a history of stenting in 1999 and 2015. He was also admitted to our facility in 2021 for pulmonary edema and NSTEMI, which was treated medically at the time. He denies any recent history of chest pain, exertional chest pain or dyspnea. -Resumed home cardiac medications as noted elsewhere. -As we will be holding his home Eliquis, will place on aspirin 81 mg for cardiac protection in the perioperative period. Once safe to do so after operation, can resume Eliquis and discontinue Aspirin. (8) Chronic atrial fibrillation Impression: Currently rate controlled but irregular heart rate. -Continue home Coreg 25 mg twice daily. -Holding home Eliquis as noted above in anticipation for surgical repair. (9) COPD without exacerbation Impression: No acute issues currently. -PRN Albuterol.
[2024-06-04] MEDS ORDERED: AMPICILLIN/SULBACTAM 3 GM in SODIUM CHLORIDE 0.9% MINIBAG 100 ML IV SCH ×2 (14:00→22:00)
--- NOTE | 2024-06-04 18:40 | XRAY Report ---
PROCEDURE: Chest 1V INDICATIONS: Hypoxia TECHNIQUE: One view of the chest was acquired. COMPARISON: 06/02/2024 FINDINGS: Surgical changes and devices: Left chest wall pacemaker. Lungs and pleura: No pleural effusions or pneumothorax. Increase in interstitial markings, most pron ounced within the mid and lower lung moss. Mediastinum: Mediastinal contours appear normal. Heart size is enlarged. Bones and chest wall: No suspicious bony lesions. Overlying soft tissues appear unremarkable. IMPRESSION: Cardiomegaly with increased interstitial markings, likely representing pulmonary edema/CHF. Reviewed by: Cipriano Ram MD on 06/04/2024 6:39 PM PDT Approved by: Cipriano Ram MD on 06/04/2024 6:39 PM PDT Station ID: [id number]
[2024-06-04] MEDS: ACETAMINOPHEN 1,000 MG/100 ML 1,000 MG/100 ML BAG IV ONE (18:41)
[2024-06-04 19:49] LABS: INFLUENZA A- RESP PCR PANEL NOT DETECTED; INFLUENZA B - RESP PCR PANEL NOT DETECTED; RSV- RESP PCR PANEL NOT DETECTED; SARS-CoV-2 -RESP PCR PANEL NOT DETECTED
[2024-06-04] MEDS: AMPICILLIN/SULBACTAM 3 GM in SODIUM CHLORIDE 0.9% MINIBAG 100 ML IV SCH (20:45)
[2024-06-04] MEDS: DOXYCYCLINE INJ 100 MG in SODIUM CHLORIDE 0.9% MINIBAG 100 ML IV SCH (22:15)
[2024-06-05 05:34] LABS: BASOPHILS % (AUTO) 0.3 %; EOSINOPHILS % (AUTO) 0.1 %; HCT - HEMATOCRIT 22.5 % (42.0-52.0); LYMPHOCYTES # (AUTO) 1.3 10^3/uL (1.5-3.5); MEAN CORPUSCULAR HEMOGLOBIN 27.5 pg (27.0-31.0); MEAN CORPUSCULAR HGB CONC 31.1 g/dL (32.0-36.0); MEAN CORPUSCULAR VOLUME 88.2 fL (80.0-94.0); MEAN PLATELET VOLUME 10.6 fL (7.4-11.4); MONOCYTES # (AUTO) 0.8 10^3/uL (0.0-1.0); MONOCYTES % (AUTO) 6.5 %; NEUTROPHILS # (AUTO) 10.7 10^3/uL (1.5-6.6); NEUTROPHILS % (AUTO) 82.5 %; PLT - PLATELET COUNT 255 10^3/uL (130-450); RED BLOOD COUNT 2.55 10^6/uL (4.70-6.10); RED CELL DISTRIBUTION WIDTH 17.3 % (12.0-15.0); WHITE BLOOD COUNT 12.9 x10^3/uL (4.8-10.8)
[2024-06-05 05:43] LABS: INR 1.7 (0.8-1.2); PT - PROTHROMBIN TIME 18.1 secs (9.9-12.6)
[2024-06-05 06:05] LABS: CALCIUM 8.2 mg/dL (8.5-10.3); POTASSIUM 4.7 mmol/L (3.5-4.5)
[2024-06-05] MEDS: PANTOPRAZOLE 40 MG VIAL IV STA (08:01)
[2024-06-05 08:09] LABS: ALBUMIN 2.8 g/dL (3.2-5.5); BILIRUBIN,DIRECT 0.25 mg/dL (0.03-0.18); BILIRUBIN,TOTAL 0.8 mg/dL (0.2-1.0); TOTAL PROTEIN 6.3 g/dL (6.4-8.9)
--- NOTE | 2024-06-05 11:21 | PROVIDER PROGRESS NOTE ---
Subjective - Prog Note Date Prog Note Date: 06/05/24 Prog Note Time: 11:17 - Subjective Pt reports feeling: Worse Subjective: On the afternoon of 06/03 the patient was noted to be more confused compared to admission. A urinalysis that had been ordered on admission was collected and showed a UTI, which is currently growing Enterococcus species. He was placed on IV ceftriaxone initially but transition to IV Unasyn yesterday when the culture showed Enterococcus. Yesterday the patient was noted to be anemic down to 7.1 and he was given 1 unit PRBC. There is no obvious cause for his worsening anemia at that time. Yesterday afternoon he seemed to be more hypoxic (requiring 3 liters now) and a chest x-ray was read as normal however on my review it appears to show a right lower lobe pneumonia. Doxycycline was added to his antibiotics at that time, but he did not appear volume overloaded. This morning his mentation is a bit better than yesterday however his hemoglobin decreased to 7.0 despite receiving 1 unit PRBC yesterday. He has not had a bowel movement since presentation thus it is unclear if he is having a GI bleed. His right lower extremity does not appear to have a large hematoma. The patient himself denies any specific complaints. He knows his name and that he is in [place], [place] on [facility], but he does not know the name of the hospital or why he is hospitalized. He denies any chest pain, dyspnea, orthopnea, cough. Reports that the pain in his right ankle is well-controlled. Given all of his acute medical issues, his surgery was originally scheduled for this afternoon but now is canceled until he is medically stabilized and optimized. Objective - Vital Signs/Intake & Output Reviewed Vital Signs: Yes Vital Signs: Vital Signs x48h Temp Pulse Resp BP BP Pulse Ox O2 Flow Rate 06/05/24 11:09 36.7 C 66 26 H 148/53 H 99 1 06/05/24 09:45 36.6 C 66 22 147/58 H 93 1 06/05/24 09:44 36.6 C 67 24 147/58 H 96 1 06/05/24 09:19 36.6 C 66 14 145/62 H 94 1 06/05/24 08:15 36.7 C 69 28 H 165/68 H 94 3 06/05/24 04:24 36.6 C 66 24 126/55 L 96 3 Intake & Output: Intake & Output 06/02/24 06/03/24 06/04/24 06/05/24 23:59 23:59 23:59 23:59 Intake Total 582 430 2622 1235 Balance 380 879 6037 1235 - Objective General Appearance: positive: Other (Drowsy but wakes up easily and is more interactive today compared to yesterday. Oriented to [facility] and [place] but does not know what the name of the hospital is or why he is hospitalized. He knows it is 2023 but does not know the month/date. Appears acutely and chron) Eyes Bilateral: positive: Normal inspection, PERRL, EOMI ENT: positive: ENT inspection nml, Pharynx nml, No signs of dehydration Neck: positive: Nml inspection, Thyroid nml, No JVD, Trachea midline Respiratory: positive: No respiratory distress, Rales, Other (Diminished air movement in both bases, worse on the right with inspiratory crackles on the right.). negative: Wheezes, Rhonchi Cardiovascular: positive: No gallop, Irregularly irregular, Systolic murmur (Soft 2/6 systolic murmur at the right upper sternal border) Abdomen: positive: Non-tender, No organomegaly, Nml bowel sounds, No distention Skin: positive: Warm, Dry, Skin rash (Scattered ecchymoses on extremities) Extremities: positive: Other (Right foot is in a splint with right toes showing slightly ritu complexion (baseline) with cap refill less than 1 second. Left leg shows no peripheral edema and DP pulses 1+.) Neurologic/Psychiatric: positive: CN's nml (2-12), Motor nml, Sensation nml, Disoriented to time - Lab Results Fish Bones: 06/05/24 05:01 06/05/24 05:01 Other Labs: Lab Results x24hrs 06/05/24 06/05/24 06/05/24 Range/Units 05:01 05:01 05:01 WBC (4.8-10.8) x10^3/uL RBC (4.70-6.10) 10^6/uL Hgb (14.0-18.0) g/dL Hct (42.0-52.0) % MCV (80.0-94.0) fL MCH (27.0-31.0) pg MCHC (32.0-36.0) g/dL RDW (12.0-15.0) % Plt Count (130-450) 10^3/uL MPV (7.4-11.4) fL Neut # (Auto) (1.5-6.6) 10^3/uL Lymph # (Auto) (1.5-3.5) 10^3/uL Sebastian # (Auto) (0.0-1.0) 10^3/uL Eos # (Auto) (0.0-0.7) 10^3/uL Baso # (Auto) (0.0-0.1) 10^3/uL Absolute Nucleated RBC x10^3/uL Nucleated RBC % /100WBC PT 18.1 H (9.9-12.6) secs INR 1.7 H (0.8-1.2) Sodium 139 (135-145) mmol/L Potassium 4.7 H (3.5-4.5) mmol/L Chloride 108 (101-111) mmol/L Carbon Dioxide 23 (21-32) mmol/L Anion Gap 8.0 (6-13) BUN 46 H (6-20) mg/dL Creatinine 2.0 H (0.6-1.3) mg/dL Estimated GFR (MDRD) 32 L (>89) Glucose 130 H (74-104) mg/dL Calcium 8.2 L (8.5-10.3) mg/dL Total Bilirubin 0.8 (0.2-1.0) mg/dL Direct Bilirubin 0.25 H (0.03-0.18) mg/dL AST 15 (10-42) IU/L ALT 8 L (10-60) IU/L Alkaline Phosphatase 69 (42-121) IU/L Total Protein 6.3 L (6.4-8.9) g/dL Albumin 2.8 L (3.2-5.5) g/dL Globulin 3.5 (2.1-4.2) g/dL Nasal Influenza B PCR Nasal Influenza A PCR Nasal RSV (PCR) Nasal SARS-CoV-2 (PCR) Blood Type Antibody Screen Crossmatch IS Only 06/05/24 06/04/24 06/03/24 Range/Units 05:01 18:50 07:15 WBC 12.9 H (4.8-10.8) x10^3/uL RBC 2.55 L (4.70-6.10) 10^6/uL Hgb 7.0 L* (14.0-18.0) g/dL Hct 22.5 L (42.0-52.0) % MCV 88.2 (80.0-94.0) fL MCH 27.5 (27.0-31.0) pg MCHC 31.1 L (32.0-36.0) g/dL RDW 17.3 H (12.0-15.0) % Plt Count 255 (130-450) 10^3/uL MPV 10.6 (7.4-11.4) fL Neut # (Auto) 10.7 H (1.5-6.6) 10^3/uL Lymph # (Auto) 1.3 L (1.5-3.5) 10^3/uL Sebastian # (Auto) 0.8 (0.0-1.0) 10^3/uL Eos # (Auto) 0.0 (0.0-0.7) 10^3/uL Baso # (Auto) 0.0 (0.0-0.1) 10^3/uL Absolute Nucleated RBC 0.00 x10^3/uL Nucleated RBC % 0.0 /100WBC PT (9.9-12.6) secs INR (0.8-1.2) Sodium (135-145) mmol/L Potassium (3.5-4.5) mmol/L Chloride (101-111) mmol/L Carbon Dioxide (21-32) mmol/L Anion Gap (6-13) BUN (6-20) mg/dL Creatinine (0.6-1.3) mg/dL Estimated GFR (MDRD) (>89) Glucose (74-104) mg/dL Calcium (8.5-10.3) mg/dL Total Bilirubin (0.2-1.0) mg/dL Direct Bilirubin (0.03-0.18) mg/dL AST (10-42) IU/L ALT (10-60) IU/L Alkaline Phosphatase (42-121) IU/L Total Protein (6.4-8.9) g/dL Albumin (3.2-5.5) g/dL Globulin (2.1-4.2) g/dL Nasal Influenza B PCR NOT DETECTED Nasal Influenza A PCR NOT DETECTED Nasal RSV (PCR) NOT DETECTED Nasal SARS-CoV-2 (PCR) NOT DETECTED Blood Type O POSITIVE Antibody Screen NEGATIVE Crossmatch IS Only See Detail - Diagnostic Imaging Diagnostic Imaging Comments: Chest X-ray (06/04/24): Per my read - increased right basilar opacity and probable effusion, concerning for pneumonia vs atelectasis. Sepsis Event Note (H) - Evaluation Current Stage of Sepsis: Ruled out Assessment/Plan - Problem List (1) Bimalleolar fracture of right ankle Impression: He has a closed bimalleolar fracture of his right ankle that is acute in nature (initially documented incorrectly as trimalleolar). He underwent splinting in the emergency department. -Orthopedic surgery consulted, Dr. Dowling following. -Last dose of Eliquis was around 10 AM on 06/02/2024. Originally planning for OR on 06/05/24 afternoon. -As needed Tylenol, oxycodone or hydromorphone available for pain. -Will need PT/OT after surgery. Anticipate SNF placement. -He currently has 0/4 active cardiac conditions though he does have underlying CAD as well as ischemic cardiomyopathy with LVEF 25%. While his cardiac conditions are currently optimized, his other conditions (hypoxia, pneumonia, U TI, metabolic encephalopathy and anemia) are all active and should be optimized prior to surgery. -Discussed with Anesthesia and Orthopedic Surgery. We all agree he is too high risk for surgery today. Will cancel OR today and reassess stability tomorrow vs Wednesday. Qualifiers: Encounter type: initial encounter Fracture type: closed Qualified Code(s): S82.841A - Displaced bimalleolar fracture of right lower leg, initial encounter for closed fracture (2) Acute cystitis without hematuria Impression: It is unclear whether he has had specific urinary symptoms however he does appear disoriented and family indicate that he has had increasing weakness for the several days prior to admission leading to frequent falls. -Placed on IV ceftriaxone 06/03/24, changed to Unasyn on 06/04/24 as culture was growing Enterococcus. -Urine culture shows Enterococcus faecalis (pansensitive aside from resistant to tetracyclines). (3) Acute metabolic encephalopathy Impression: In the past 24 hours he has developed confusion and disorientation. Speaking with family they have noted that he has had a decline in cognitive status over the past week preceding hospitalization. -This is likely secondary to his underlying UTI. May be compounded currently due to narcotic usage for his right ankle along with hypoxia from pneumonia. -Treat UTI as noted above. -Minimize narcotics if able. -If he worsens, would obtain CT head however he has no focal neurologic deficit at this time. Clinically he is improved this morning. (4) Acute respiratory failure with hypoxia Impression: Based on my evaluation of the chest x-ray it appears that he does have a probable right lower lobe infiltrate. He clinically does not appear fluid overloaded at this time however we are holding his Lasix. -Continue IV Unasyn and doxycycline. -Blood cultures ordered. -Wean oxygen as tolerated. -Will resume home 10 mg PO Torsemide as we are giving him an additional unit of blood today and I am concerned he will become fluid overloaded otherwise. (5) Acute on chronic anemia Impression: He has baseline anemia of chronic disease and anemia of CKD with a hemoglobin typically ranging from 9-10. -Hemoglobin has been dropping since admission and today is 7.0 despite receiving a unit of blood yesterday for hemoglobin 7.1. -No evidence of any bleeding into his leg. He has not had a bowel movement since he has been in the hospital thus it is unclear if he is having a GI bleed. -Will provide a bowel regimen, check stool occult sample and placed on 40 mg IV Protonix twice daily as I am concerned for underlying GI bleed. -Will give an additional 1 unit PRBC today, for a total of 2 units PRBC this hospitalization. -Obtain CT abdomen to rule out any occult intra-abdominal bleeding. (6) Chronic kidney disease, stage 3b Impression: His baseline renal function varies around creatinine of 1.6-2.0. -Avoid unnecessary nephrotoxins and follow renal function closely. -Renally dose medications as appropriate. -Creatinine is stable but on the upper end of his normal range. -Will hold losartan for now. -Monitor daily BMP. (7) Ischemic cardiomyopathy Impression: Follows with Dr. Abernathy in cardiology at [facility] cardiology [facility]. Has a history of an LVEF 25% in 2022 however it is unclear if he had a more recent echocardiogram through [facility]. -Status post biventricular ICD in the past. -Currently he appears euvolemic. Will resume home Torsemide today. -Continue home Coreg, atorvastatin. Holding losartan due to increasing creatinine. (8) History of coronary artery disease Impression: Has a history of stenting in 1999 and 2015. He was also admitted to our facility in 2021 for pulmonary edema and NSTEMI, which was treated medically at the time. He denies any recent history of chest pain, exertional chest pain or dyspnea. -Resumed home cardiac medications as noted elsewhere. -Aspirin 81 mg was added for cardioprotection as we were holding home Eliquis (was not on aspirin previously). Will hold Aspirin 81 mg now that he is anemic. (9) Chronic atrial fibrillation Impression: Currently rate controlled but irregular heart rate. -Continue home Coreg 25 mg twice daily. -Holding home Eliquis as noted above in anticipation for surgical repair. (10) COPD without exacerbation Impression: No acute issues currently. Does not appear to be having a COPD exacerbation as a cause of his hypoxia. -PRN Albuterol.
[2024-06-05] MEDS ORDERED: SENNA 8.6 MG TABLET PO PRN (11:30)
[2024-06-05] MEDS ORDERED: polyethylene glycoL 3350 17 GM PACKET PO PRN (11:42)
[2024-06-05] MEDS: SENNA 8.6 MG TABLET PO SCH (12:19)
[2024-06-05] MEDS: TORSEMIDE 20 MG TABLET PO SCH (12:19)
[2024-06-05 13:54] LABS: HCT - HEMATOCRIT 25.9 % (42.0-52.0)
[2024-06-05] MEDS: MAGNESIUM HYDROXIDE 2,400 MG/30 ML UDC PO ONE (14:03)
--- NOTE | 2024-06-05 14:46 | PROVIDER PROGRESS NOTE ---
Subjective - Prog Note Date Prog Note Date: 06/05/24 Prog Note Time: 14:43 Objective - Vital Signs/Intake & Output Vital Signs: Vital Signs x48h Temp Pulse Resp BP BP Pulse Ox O2 Flow Rate 06/05/24 13:22 36.6 C 65 22 127/45 L 93 1 06/05/24 11:09 36.7 C 66 26 H 148/53 H 99 1 06/05/24 09:45 36.6 C 66 22 147/58 H 93 1 06/05/24 09:44 36.6 C 67 24 147/58 H 96 1 06/05/24 09:19 36.6 C 66 14 145/62 H 94 1 06/05/24 08:15 36.7 C 69 28 H 165/68 H 94 3 Intake & Output: Intake & Output 06/02/24 06/03/24 06/04/24 06/05/24 23:59 23:59 23:59 23:59 Intake Total 449 089 4183 1840 Balance 094 938 2784 1840 - Lab Results Fish Bones: 06/05/24 13:49 06/05/24 05:01 Other Labs: Lab Results x24hrs 06/05/24 06/05/24 06/05/24 Range/Units 13:49 05:01 05:01 WBC (4.8-10.8) x10^3/uL RBC (4.70-6.10) 10^6/uL Hgb 8.0 L (14.0-18.0) g/dL Hct 25.9 L (42.0-52.0) % MCV (80.0-94.0) fL MCH (27.0-31.0) pg MCHC (32.0-36.0) g/dL RDW (12.0-15.0) % Plt Count (130-450) 10^3/uL MPV (7.4-11.4) fL Neut # (Auto) (1.5-6.6) 10^3/uL Lymph # (Auto) (1.5-3.5) 10^3/uL [place] # (Auto) (0.0-1.0) 10^3/uL Eos # (Auto) (0.0-0.7) 10^3/uL Baso # (Auto) (0.0-0.1) 10^3/uL Absolute Nucleated RBC x10^3/uL Nucleated RBC % /100WBC PT 18.1 H (9.9-12.6) secs INR 1.7 H (0.8-1.2) Sodium (135-145) mmol/L Potassium (3.5-4.5) mmol/L Chloride (101-111) mmol/L Carbon Dioxide (21-32) mmol/L Anion Gap (6-13) BUN (6-20) mg/dL Creatinine (0.6-1.3) mg/dL Estimated GFR (MDRD) (>89) Glucose (74-104) mg/dL Calcium (8.5-10.3) mg/dL Total Bilirubin 0.8 (0.2-1.0) mg/dL Direct Bilirubin 0.25 H (0.03-0.18) mg/dL AST 15 (10-42) IU/L ALT 8 L (10-60) IU/L Alkaline Phosphatase 69 (42-121) IU/L Total Protein 6.3 L (6.4-8.9) g/dL Albumin 2.8 L (3.2-5.5) g/dL Globulin 3.5 (2.1-4.2) g/dL Nasal Influenza B PCR Nasal Influenza A PCR Nasal RSV (PCR) Nasal SARS-CoV-2 (PCR) Blood Type Antibody Screen Crossmatch IS Only 06/05/24 06/05/24 06/04/24 Range/Units 05:01 05:01 18:50 WBC 12.9 H (4.8-10.8) x10^3/uL RBC 2.55 L (4.70-6.10) 10^6/uL Hgb 7.0 L* (14.0-18.0) g/dL Hct 22.5 L (42.0-52.0) % MCV 88.2 (80.0-94.0) fL MCH 27.5 (27.0-31.0) pg MCHC 31.1 L (32.0-36.0) g/dL RDW 17.3 H (12.0-15.0) % Plt Count 255 (130-450) 10^3/uL MPV 10.6 (7.4-11.4) fL Neut # (Auto) 10.7 H (1.5-6.6) 10^3/uL Lymph # (Auto) 1.3 L (1.5-3.5) 10^3/uL [place] # (Auto) 0.8 (0.0-1.0) 10^3/uL Eos # (Auto) 0.0 (0.0-0.7) 10^3/uL Baso # (Auto) 0.0 (0.0-0.1) 10^3/uL Absolute Nucleated RBC 0.00 x10^3/uL Nucleated RBC % 0.0 /100WBC PT (9.9-12.6) secs INR (0.8-1.2) Sodium 139 (135-145) mmol/L Potassium 4.7 H (3.5-4.5) mmol/L Chloride 108 (101-111) mmol/L Carbon Dioxide 23 (21-32) mmol/L Anion Gap 8.0 (6-13) BUN 46 H (6-20) mg/dL Creatinine 2.0 H (0.6-1.3) mg/dL Estimated GFR (MDRD) 32 L (>89) Glucose 130 H (74-104) mg/dL Calcium 8.2 L (8.5-10.3) mg/dL Total Bilirubin (0.2-1.0) mg/dL Direct Bilirubin (0.03-0.18) mg/dL AST (10-42) IU/L ALT (10-60) IU/L Alkaline Phosphatase (42-121) IU/L Total Protein (6.4-8.9) g/dL Albumin (3.2-5.5) g/dL Globulin (2.1-4.2) g/dL Nasal Influenza B PCR NOT DETECTED Nasal Influenza A PCR NOT DETECTED Nasal RSV (PCR) NOT DETECTED Nasal SARS-CoV-2 (PCR) NOT DETECTED Blood Type Antibody Screen Crossmatch IS Only 06/03/24 Range/Units 07:15 WBC (4.8-10.8) x10^3/uL RBC (4.70-6.10) 10^6/uL Hgb (14.0-18.0) g/dL Hct (42.0-52.0) % MCV (80.0-94.0) fL MCH (27.0-31.0) pg MCHC (32.0-36.0) g/dL RDW (12.0-15.0) % Plt Count (130-450) 10^3/uL MPV (7.4-11.4) fL Neut # (Auto) (1.5-6.6) 10^3/uL Lymph # (Auto) (1.5-3.5) 10^3/uL [place] # (Auto) (0.0-1.0) 10^3/uL Eos # (Auto) (0.0-0.7) 10^3/uL Baso # (Auto) (0.0-0.1) 10^3/uL Absolute Nucleated RBC x10^3/uL Nucleated RBC % /100WBC PT (9.9-12.6) secs INR (0.8-1.2) Sodium (135-145) mmol/L Potassium (3.5-4.5) mmol/L Chloride (101-111) mmol/L Carbon Dioxide (21-32) mmol/L Anion Gap (6-13) BUN (6-20) mg/dL Creatinine (0.6-1.3) mg/dL Estimated GFR (MDRD) (>89) Glucose (74-104) mg/dL Calcium (8.5-10.3) mg/dL Total Bilirubin (0.2-1.0) mg/dL Direct Bilirubin (0.03-0.18) mg/dL AST (10-42) IU/L ALT (10-60) IU/L Alkaline Phosphatase (42-121) IU/L Total Protein (6.4-8.9) g/dL Albumin (3.2-5.5) g/dL Globulin (2.1-4.2) g/dL Nasal Influenza B PCR Nasal Influenza A PCR Nasal RSV (PCR) Nasal SARS-CoV-2 (PCR) Blood Type O POSITIVE Antibody Screen NEGATIVE Crossmatch IS Only See Detail Sepsis Event Note (H) - Evaluation Current Stage of Sepsis: Ruled out Assessment/Plan - Problem List (1) Bimalleolar ankle fracture Impression: Due to evolving medical issues, will cancel today's ankle surgery. Can reschedule when patient's condition stabilizes and improves. Please notify me when patient will be able to proceed with his ankle procedure. Qualifiers: Encounter type: initial encounter Fracture type: closed Laterality: right Qualified Code(s): S82.841A - Displaced bimalleolar fracture of right lower leg, initial encounter for closed fracture
[2024-06-05] MEDS: PANTOPRAZOLE 40 MG VIAL IV SCH (21:49)
[2024-06-06 04:55] LABS: BASOPHILS # (AUTO) 0.1 10^3/uL (0.0-0.1); BASOPHILS % (AUTO) 0.5 %; EOSINOPHILS # (AUTO) 0.2 10^3/uL (0.0-0.7); EOSINOPHILS % (AUTO) 1.6 %; HCT - HEMATOCRIT 25.2 % (42.0-52.0); HGB - HEMOGLOBIN 7.6 g/dL (14.0-18.0); LYMPHOCYTES # (AUTO) 1.5 10^3/uL (1.5-3.5); LYMPHOCYTES % (AUTO) 14.2 %; MEAN CORPUSCULAR HEMOGLOBIN 26.6 pg (27.0-31.0); MEAN CORPUSCULAR HGB CONC 30.2 g/dL (32.0-36.0); MEAN CORPUSCULAR VOLUME 88.1 fL (80.0-94.0); MEAN PLATELET VOLUME 10.7 fL (7.4-11.4); MONOCYTES # (AUTO) 0.8 10^3/uL (0.0-1.0); MONOCYTES % (AUTO) 7.1 %; NEUTROPHILS # (AUTO) 8.2 10^3/uL (1.5-6.6); NEUTROPHILS % (AUTO) 76.2 %; NRBC ABSOLUTE COUNT (AUTO) 0.03 x10^3/uL; NUCLEATED RED BLOOD CELLS AUTO 0.3 /100WBC; PLT - PLATELET COUNT 294 10^3/uL (130-450); RED BLOOD COUNT 2.86 10^6/uL (4.70-6.10); RED CELL DISTRIBUTION WIDTH 17.2 % (12.0-15.0); WHITE BLOOD COUNT 10.8 x10^3/uL (4.8-10.8)
[2024-06-06 05:12] LABS: CALCIUM 8.3 mg/dL (8.5-10.3); CREATININE 1.9 mg/dL (0.6-1.3); POTASSIUM 4.6 mmol/L (3.5-4.5)
[2024-06-06] MEDS: DOCUSATE SODIUM 250 MG CAPSULE PO SCH (08:43)
--- NOTE | 2024-06-06 09:46 | CT Report ---
PROCEDURE: Abdomen/Pelvis WO INDICATIONS: Anemia, evaluate for intra-abdominal bleeding TECHNIQUE: A CT scan of the abdomen and pelvis was performed without the use of intravenous contrast. Images we re recorded and evaluated at appropriate window settings. Reformats: coronal and sagittal. For radiat ion dose reduction, the following was used: automated exposure control, adjustment of mA and/or kV ac cording to patient size. COMPARISON: None. FINDINGS: Image quality: Diagnostic. Lower chest: Consolidation in the right lung base could represent pneumonia or aspiration. Enlarged h eart with pacer/defibrillator leads. Severe coronary calcifications /calcified cardiac stents Liver: No contour-deforming mass. Gallbladder: No calcified gallstone. Biliary tree: No intrahepatic or extrahepatic dilation, accounting for age. Spleen: No splenomegaly. Pancreas: Markedly atrophic. Foci of calcification likely from chronic pancreatitis Adrenals: No adrenal nodule. Kidneys and ureters: Large number of renal cysts/cystic lesions, incompletely evaluated with no IV co ntrast. Difficult to rule out hydronephrosis in left kidney. Large number of cysts obscuring renal co ntour. No ureterectasis. No ureteral stone identified Stomach, bowel and peritoneum: Evaluation of the bowel is limited without contrast. Small hiatal aleyda ia. No gastric or small bowel dilation. No abnormal wall thickening. No pathologic free fluid. Nonvis ualized appendix. Lymph nodes: No central or retroperitoneal adenopathy. Vessels: No infrarenal aortic aneurysm. Reproductive organs: Unremarkable. Bladder: Bladder wall thickness is normal, accounting for underdistention. No calcified bladder stone s. Pelvic lymph nodes: No adenopathy by size criteria. Bones: Severe osteopenia. Degenerative disc disease. Bridging osteophytes may represent DISH. Other: No significant ventral or inguinal hernia. IMPRESSION: 1 Right basilar pulmonary consolidation representing pneumonia or aspiration 2. Severe cardiomegaly 3. Large number cysts in both kidneys. It is difficult to completely rule out hydronephrosis in left kidney due to distortion by large number of cystic lesions. If clinically indicated, CT with contrast renal mass protocol or MRI may provide additional diagnostic benefit. 4. Severe osteopenia 5. Limited evaluation of the bowel bleed without IV contrast bleeding protocol. Reviewed by: Raymundo Schumacher MD on 06/06/2024 9:44 AM PDT Approved by: Raymundo Schumacher MD on 06/06/2024 9:44 AM PDT Station ID: [id number]
[2024-06-06] MEDS ORDERED: TORSEMIDE 20 MG TABLET PO PRN (17:21)
[2024-06-06] MEDS: TORSEMIDE 20 MG TABLET PO ONE (20:09)
--- NOTE | 2024-06-06 20:48 | PROVIDER PROGRESS NOTE ---
Assessment/Plan - Problem List (1) Bimalleolar fracture of right ankle Qualifiers: Encounter type: initial encounter Fracture type: closed Qualified Code(s): S82.841A - Displaced bimalleolar fracture of right lower leg, initial encounter for closed fracture Assessment/Plan: Impression: He has a closed bimalleolar fracture of his right ankle that is acute in nature He underwent splinting in the emergency department. Dr. Dowling to consider taking the patient to the operating room tomorrow Last dose of Eliquis was around 10 AM on 06/02/2024. Originally planning for OR on 06/05/24 afternoon. Tylenol, oxycodone or hydromorphone available as neededfor pain. -Will need PT/OT after surgery. Anticipate SNF placement. Patient is at moderate risk for perioperative pulmonary and cardiac morbidity. However, this is unlikely to change and no further diagnostic workup would improve his condition. Recommend proceeding with surgery. Today I discussed with the patient that he does have a moderate risk of a perioperative complication. We discussed the pros and cons of not performing his surgery. (2) Acute cystitis without hematuria Impression: Urine culture shows Enterococcus faecalis (pansensitive aside from resistant to tetracyclines).Continue Unasyn (3) Acute metabolic encephalopathy Impression: Resolved. Patient is alert and oriented to person time place and situation. (4) Acute respiratory failure with hypoxia Impression: Continue IV Unasyn and doxycyclineFor empiric coverage for possible aspiration. Blood cultures with no growth to date Wean oxygen as tolerated. Contiue 10 mg PO Torsemide (5) Acute on chronic anemia Impression: 1 unit of packed red blood cells as written for the patient prior to his surgery. An extra dose of torsemide has also been written (6) Chronic kidney disease, stage 3b Impression: His baseline renal function varies around creatinine of 1.6-2.0. Avoid unnecessary nephrotoxins Renally dose medications as appropriate. Creatinine is stable but on the upper end of his normal range. (7) Ischemic cardiomyopathy Impression: Follows with Dr. Abernathy in cardiology at [facility]. Has a history of an LVEF 25% in 2021 however it is unclear if he had a more recent echocardiogram through [facility]. Status post biventricular ICD in place Currently he appears euvolemic. Will resume home Torsemide today. Continue home Coreg, atorvastatin. (8) History of coronary artery disease Impression: Has a history of stenting in 1999 and 2015. He was also admitted to our facility in 2021 for pulmonary edema and NSTEMI, which was treated medically at the time. He denies any recent history of chest pain, exertional chest pain or dyspnea. (9) Chronic atrial fibrillation Impression: Currently rate controlled but irregular heart rate. Continue home Coreg 25 mg twice daily. Hold Eliquis for surgical repair. (10) COPD without exacerbation Impression: No acute issues currently. Does not appear to be having a COPD exacerbation as a cause of his hypoxia. -PRN Albuterol. - Current Meds Current Meds: Current Medications Generic Name Dose Route Start Last Admin Trade Name Freq PRN Reason Stop Dose Admin Allopurinol 50 mg 06/03/24 10:17 06/06/24 08:42 Allopurinol 100 Mg Tablet PO 50 mg DAILY GABBI Administration Atorvastatin Calcium 40 mg 06/02/24 21:00 06/05/24 21:49 Atorvastatin 40 Mg Tablet PO 40 mg QPM GABBI Administration Carvedilol 25 mg 06/02/24 21:00 06/06/24 08:43 Carvedilol 12.5 Mg Tablet PO 25 mg BID GABBI Administration Docusate Sodium 250 mg 06/06/24 09:00 06/06/24 08:43 Docusate Sodium 250 Mg Capsule PO 250 mg DAILY GABBI Administration Duloxetine HCl 30 mg 06/03/24 09:00 06/06/24 08:43 Duloxetine 30 Mg Capsule PO 30 mg DAILY GABBI Administration Finasteride 5 mg 06/03/24 09:00 06/06/24 08:42 Finasteride 5 Mg Tablet PO 5 mg DAILY GABBI Administration Hydromorphone HCl 0.5 mg 06/02/24 17:48 06/02/24 18:27 Hydromorphone 0.5 Mg/0.5 Ml Syringe IVP 0.5 mg Q2H PRN Administration Breakthrough Pain Ampicillin Sodium/Sulbactam 100 mls @ 200 mls/hr 06/04/24 21:00 06/06/24 09:30 Sodium 3 gm/ Sodium Chloride IV Infused BID GABBI Infusion Doxycycline Hyclate 100 mg/ 100 mls @ 100 mls/hr 06/04/24 21:00 06/06/24 15:35 Sodium Chloride IV Infused BID GABBI Infusion Oxycodone HCl 10 mg 06/02/24 17:48 06/02/24 19:50 Oxycodone 5 Mg Tablet PO 10 mg Q4HR PRN Administration Pain 8 to 10 Pantoprazole Sodium 40 mg 06/05/24 21:00 06/06/24 08:42 Pantoprazole 40 Mg Vial IV 40 mg BID GABBI Administration Polyethylene Glycol 17 gm 06/04/24 09:00 06/06/24 08:43 Polyethylene Glycol 3350 17 Gm Packet PO Not Given DAILY GABBI Senna 8.6 mg 06/05/24 12:00 06/06/24 08:43 Senna 8.6 Mg Tablet PO Not Given DAILY GABBI Sodium Chloride 10 ml 06/03/24 01:00 06/06/24 20:10 Sodium Chloride Flush 0.9% 10 Ml Syringe IVP 10 ml 0100,0900,1700 GABBI Administration Tamsulosin HCl 0.4 mg 06/03/24 09:00 06/06/24 08:42 Tamsulosin 0.4 Mg Capsule PO 0.4 mg DAILY GABBI Administration Torsemide 10 mg 06/05/24 12:00 06/06/24 08:43 Torsemide 20 Mg Tablet PO 10 mg DAILY GABBI Administration Zinc Oxide 1 gm 06/03/24 18:00 06/06/24 08:43 Cod Liver Oil/Zinc Oxide 113 Gm Tube TOP 1 applic BID GABBI Administration - Lab Result Fish Bone Diagrams: 06/06/24 04:24 06/06/24 04:24 - Additional Planning My Orders: My Active Orders 06/06/24 Dinner Cardiac Diet [DIET] 06/06/24 17:16 Transfuse RBCs Leukoreduced [RC] .ONCE 06/06/24 21:00 Calcium Carbonate [Tums] 500 mg PO BID 06/07/24 VITAMIN D 25-HYDROXY [REFLAB] Routine 06/07/24 09:00 Cholecalciferol [Vitamin D3] 50 mcg PO DAILY Subjective - Subjective Patient Reports: Other (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 He is alert and oriented to person time place and situation.) Objective Vital Signs: Vital Signs - 24 hr 06/05/24 06/06/24 06/06/24 20:50 00:20 05:24 Temperature 37.3 C 37.0 C 36.7 C Heart Rate [ 65 66 68 Brachial] Respiratory 24 16 16 Rate Blood Pressure 163/61 H [Left Brachial artery] Blood Pressure 156/63 H 155/62 H [Right Brachial artery] O2 Saturation 96 96 97 If not protocol 2.5 2.5 2.5 : Oxygen Flow, liters/minute 06/06/24 06/06/24 06/06/24 08:15 11:30 15:39 Temperature 36.5 C 36.6 C 36.6 C Heart Rate [ 70 63 68 Brachial] Respiratory 18 16 20 Rate Blood Pressure [Left Brachial artery] Blood Pressure 174/76 H 159/68 H 159/69 H [Right Brachial artery] O2 Saturation 96 95 96 If not protocol 2.5 2.5 : Oxygen Flow, liters/minute 06/06/24 06/06/24 20:06 20:21 Temperature 36.6 C 36.6 C Heart Rate [ 65 65 Brachial] Respiratory 18 18 Rate Blood Pressure 175/65 H 174/67 H [Left Brachial artery] Blood Pressure [Right Brachial artery] O2 Saturation 94 94 If not protocol : Oxygen Flow, liters/minute Oxygen O2 Source Room air I&O (Last 24 Hrs): Intake and Output Totals x24h 06/04/24 06/05/24 06/06/24 23:59 23:59 23:59 Intake Total 1090 2440 800 Balance 1090 2440 800 General: Alert, Oriented x3, No acute distress Neck: Supple, No JVD Neuro: Alert, Non Focal Cardiovascular: Other (Positive S1-S2 no extra heart sounds.) Respiratory: Other (Fair air exchange in all lung moss no wheezing no crackle s) Abdomen: Other (Positive bowel sounds soft nontender nondistended.) Skin: No rashes - Results Results: Laboratory Results WBC 10.8 x10^3/uL (4.8-10.8) 06/06/24 04:24 RBC 2.86 10^6/uL (4.70-6.10) L 06/06/24 04:24 Hgb 7.6 g/dL (14.0-18.0) L 06/06/24 04:24 Hct 25.2 % (42.0-52.0) L 06/06/24 04:24 MCV 88.1 fL (80.0-94.0) 06/06/24 04:24 MCH 26.6 pg (27.0-31.0) L 06/06/24 04:24 MCHC 30.2 g/dL (32.0-36.0) L 06/06/24 04:24 RDW 17.2 % (12.0-15.0) H 06/06/24 04:24 Plt Count 294 10^3/uL (130-450) 06/06/24 04:24 MPV 10.7 fL (7.4-11.4) 06/06/24 04:24 Reticulocyte % (Auto) 3.00 % (0.5-2.3) H 06/04/24 07:20 Neut # (Auto) 8.2 10^3/uL (1.5-6.6) H 06/06/24 04:24 Lymph # (Auto) 1.5 10^3/uL (1.5-3.5) 06/06/24 04:24 [place] # (Auto) 0.8 10^3/uL (0.0-1.0) 06/06/24 04:24 Eos # (Auto) 0.2 10^3/uL (0.0-0.7) 06/06/24 04:24 Baso # (Auto) 0.1 10^3/uL (0.0-0.1) 06/06/24 04:24 Absolute Nucleated RBC 0.03 x10^3/uL 06/06/24 04:24 Nucleated RBC % 0.3 /100WBC 06/06/24 04:24 Absolute Retic 0.080 10^6/uL (0.020-0.110) 06/04/24 07:20 PT 18.1 secs (9.9-12.6) H 06/05/24 05:01 INR 1.7 (0.8-1.2) H 06/05/24 05:01 Sodium 140 mmol/L (135-145) 06/06/24 04:24 Potassium 4.6 mmol/L (3.5-4.5) H 06/06/24 04:24 Chloride 109 mmol/L (101-111) 06/06/24 04:24 Carbon Dioxide 23 mmol/L (21-32) 06/06/24 04:24 Anion Gap 8.0 (6-13) 06/06/24 04:24 BUN 55 mg/dL (6-20) H 06/06/24 04:24 Creatinine 1.9 mg/dL (0.6-1.3) H 06/06/24 04:24 Estimated GFR (MDRD) 34 (>89) L 06/06/24 04:24 Glucose 122 mg/dL (74-104) H 06/06/24 04:24 Calcium 8.3 mg/dL (8.5-10.3) L 06/06/24 04:24 Magnesium 1.9 mg/dL (1.7-2.3) 06/03/24 07:15 Iron < 10 ug/dL (50-212) L 06/04/24 07:20 TIBC 259 ug/dL (250-450) 06/04/24 07:20 % Saturation TNP 06/04/24 07:20 Transferrin 185 mg/dL (203-362) L 06/04/24 07:20 Ferritin 71.4 ng/mL (23.9-336.2) 06/04/24 07:20 Total Bilirubin 0.8 mg/dL (0.2-1.0) 06/05/24 05:01 Direct Bilirubin 0.25 mg/dL (0.03-0.18) H 06/05/24 05:01 AST 15 IU/L (10-42) 06/05/24 05:01 ALT 8 IU/L (10-60) L 06/05/24 05:01 Alkaline Phosphatase 69 IU/L (42-121) 06/05/24 05:01 Total Protein 6.3 g/dL (6.4-8.9) L 06/05/24 05:01 Albumin 2.8 g/dL (3.2-5.5) L 06/05/24 05:01 Globulin 3.5 g/dL (2.1-4.2) 06/05/24 05:01 Albumin/Globulin Ratio 0.8 (1.0-2.2) L 06/02/24 14:34 Lipase < 10 U/L (11-82) L 06/02/24 14:34 Vitamin B12 122 pg/mL (180-914) L 06/06/24 04:25 Urine Color YELLOW 06/03/24 14:30 Urine Clarity HAZY (CLEAR) 06/03/24 14:30 Urine pH 6.0 PH (5.0-7.5) 06/03/24 14:30 Ur Specific [place] 1.020 (1.002-1.030) 06/03/24 14:30 Urine Protein TRACE mg/dL (NEGATIVE) 06/03/24 14:30 Urine Glucose (UA) >=1000 mg/dL (NEGATIVE) H 06/03/24 14:30 Urine Ketones NEGATIVE mg/dL (NEGATIVE) 06/03/24 14:30 Urine Occult Blood NEGATIVE (NEGATIVE) 06/03/24 14:30 Urine Nitrite NEGATIVE (NEGATIVE) 06/03/24 14:30 Urine Bilirubin NEGATIVE (NEGATIVE) 06/03/24 14:30 Urine Urobilinogen 1 (NORMAL) E.U./dL (NORMAL) 06/03/24 14:30 Ur Leukocyte Esterase TRACE (NEGATIVE) H 06/03/24 14:30 Urine RBC 0-5 /HPF (0-5) 06/03/24 14:30 Urine WBC >25 /HPF (0-3) H 06/03/24 14:30 Urine WBC Clumps PRESENT 06/03/24 14:30 Ur Squamous Epith Cells FEW Squamous (<= Few) 06/03/24 14:30 Urine Bacteria Few /HPF (None Seen) 06/03/24 14:30 Urine Culture Comments INDICATED 06/03/24 14:30 Nasal Influenza B PCR NOT DETECTED 06/04/24 18:50 Nasal Influenza A PCR NOT DETECTED 06/04/24 18:50 Nasal RSV (PCR) NOT DETECTED 06/04/24 18:50 Nasal SARS-CoV-2 (PCR) NOT DETECTED 06/04/24 18:50 Blood Type O POSITIVE 06/06/24 18:06 Blood Type Recheck O POSITIVE 06/02/24 14:34 Antibody Screen NEGATIVE 06/06/24 18:06 Crossmatch IS Only See Detail 06/06/24 18:06 - Procedures Procedures: Procedures CATARAC PHACOEMULS/ASPIR (03/07/14) EXCISION OF LARGE INTESTINE, ENDO, DIAGN (05/12/18) INSERT LENS AT CATAR EXT (03/07/14) Sepsis Event Note (H) - Evaluation Current Stage of Sepsis: Ruled out
[2024-06-06] MEDS: CALCIUM CARBONATE CHEW 500 MG TABLET PO SCH (21:26)
[2024-06-07 05:15] LABS: BASOPHILS % (AUTO) 0.3 %; EOSINOPHILS % (AUTO) 0.1 %; HCT - HEMATOCRIT 26.9 % (42.0-52.0); HGB - HEMOGLOBIN 8.4 g/dL (14.0-18.0); LYMPHOCYTES % (AUTO) 8.9 %; MEAN CORPUSCULAR HEMOGLOBIN 26.9 pg (27.0-31.0); MEAN CORPUSCULAR HGB CONC 31.2 g/dL (32.0-36.0); MEAN CORPUSCULAR VOLUME 86.2 fL (80.0-94.0); MEAN PLATELET VOLUME 10.7 fL (7.4-11.4); MONOCYTES # (AUTO) 0.8 10^3/uL (0.0-1.0); MONOCYTES % (AUTO) 6.8 %; NEUTROPHILS # (AUTO) 9.6 10^3/uL (1.5-6.6); NEUTROPHILS % (AUTO) 83.5 %; NRBC ABSOLUTE COUNT (AUTO) 0.06 x10^3/uL; NUCLEATED RED BLOOD CELLS AUTO 0.5 /100WBC; PLT - PLATELET COUNT 341 10^3/uL (130-450); RED BLOOD COUNT 3.12 10^6/uL (4.70-6.10); RED CELL DISTRIBUTION WIDTH 17.6 % (12.0-15.0); WHITE BLOOD COUNT 11.5 x10^3/uL (4.8-10.8)
[2024-06-07 05:31] LABS: CALCIUM 8.4 mg/dL (8.5-10.3); CREATININE 1.8 mg/dL (0.6-1.3); POTASSIUM 4.4 mmol/L (3.5-4.5)
[2024-06-07 06:37] LABS: INR 1.6 (0.8-1.2); PT - PROTHROMBIN TIME 17.2 secs (9.9-12.6)
[2024-06-07] MEDS ORDERED: BUPIVACAINE 0.25% PF 30 ML VIAL ONE (07:03)
[2024-06-07] MEDS ORDERED: PROPOFOL 200 MG/20 ML VIAL IVP ONE (07:15)
[2024-06-07] MEDS ORDERED: ROCURONIUM 50 MG/5 ML VIAL ONE ×2 (07:15→10:10)
[2024-06-07] MEDS ORDERED: LIDOCAINE-PF 2% 10 ML AMP SUBQ ONE (07:15)
[2024-06-07] MEDS ORDERED: fentaNYL 100 MCG/2 ML VIAL ONE ×3 (07:16→12:50)
[2024-06-07] MEDS ORDERED: VASOPRESSIN 20 UNIT/ML VIAL ONE (07:23)
[2024-06-07] MEDS ORDERED: SODIUM CHLORIDE 0.9% 10 ML VIAL IVP ONE ×2 (07:24→09:39)
--- NOTE | 2024-06-07 07:41 | ANESTHESIA ---
Pre-Anesthesia VS, & Labs - Diagnosis right ankle fracture - Procedure right ankle orif Vital Signs: Temp Pulse Resp BP Pulse Ox O2 Flow Rate 37.0 C 68 20 146/61 H 93 2.5 06/07/24 04:18 06/07/24 04:18 06/07/24 04:18 06/07/24 04:18 06/07/24 04:18 06/06/24 11:30 Height: 6 ft 1 in Weight (kg): 89.358 kg Body Mass Index: 25.9 BMI Classification: Overweight - NPO >8 hours - Lab Results Current Lab Results: Laboratory Tests 06/07/24 06:24: PT 17.2 H, INR 1.6 H 06/07/24 04:35: Sodium 141, Potassium 4.4, Chloride 106, Carbon Dioxide 25, Anion Gap 10.0, BUN 57 H, Creatinine 1.8 H, Estimated GFR (MDRD) 36 L, Glucose 137 H, Calcium 8.4 L 06/07/24 04:35: WBC 11.5 H, RBC 3.12 L, Hgb 8.4 L, Hct 26.9 L, MCV 86.2, MCH 26.9 L, MCHC 31.2 L, RDW 17.6 H, Plt Count 341, MPV 10.7, Neut # (Auto) 9.6 H, Lymph # (Auto) 1.0 L, [place] # (Auto) 0.8, Eos # (Auto) 0.0, Baso # (Auto) 0.0, Absolute Nucleated RBC 0.06, Nucleated RBC % 0.5 06/06/24 18:06: Blood Type O POSITIVE, Antibody Screen NEGATIVE, Crossmatch IS Only See Detail 06/06/24 04:25: Vitamin B12 122 L 06/06/24 04:24: Sodium 140, Potassium 4.6 H, Chloride 109, Carbon Dioxide 23, Anion Gap 8.0, BUN 55 H, Creatinine 1.9 H, Estimated GFR (MDRD) 34 L, Glucose 122 H, Calcium 8.3 L 06/06/24 04:24: WBC 10.8, RBC 2.86 L, Hgb 7.6 L, Hct 25.2 L, MCV 88.1, MCH 26.6 L, MCHC 30.2 L, RDW 17.2 H, Plt Count 294, MPV 10.7, Neut # (Auto) 8.2 H, Lymph # (Auto) 1.5, [place] # (Auto) 0.8, Eos # (Auto) 0.2, Baso # (Auto) 0.1, Absolute Nucleated RBC 0.03, Nucleated RBC % 0.3 06/05/24 13:49: Hgb 8.0 L, Hct 25.9 L 06/05/24 05:01: Total Bilirubin 0.8, Direct Bilirubin 0.25 H, AST 15, ALT 8 L, Alkaline Phosphatase 69, Total Protein 6.3 L, Albumin 2.8 L, Globulin 3.5 06/05/24 05:01: PT 18.1 H, INR 1.7 H 06/05/24 05:01: Sodium 139, Potassium 4.7 H, Chloride 108, Carbon Dioxide 23, Anion Gap 8.0, BUN 46 H, Creatinine 2.0 H, Estimated GFR (MDRD) 32 L, Glucose 130 H, Calcium 8.2 L 06/05/24 05:01: WBC 12.9 H, RBC 2.55 L, Hgb 7.0 L*, Hct 22.5 L, MCV 88.2, MCH 27.5, MCHC 31.1 L, RDW 17.3 H, Plt Count 255, MPV 10.6, Neut # (Auto) 10.7 H, Lymph # (Auto) 1.3 L, [place] # (Auto) 0.8, Eos # (Auto) 0.0, Baso # (Auto) 0.0, Absolute Nucleated RBC 0.00, Nucleated RBC % 0.0 06/04/24 07:20: Iron < 10 L, TIBC 259, % Saturation TNP, Transferrin 185 L, Ferritin 71.4, Total Bilirubin 1.0, Direct Bilirubin 0.30 H, AST 18, ALT 10, Alkaline Phosphatase 73, Total Protein 7.2, Albumin 3.1 L, Globulin 4.1 06/04/24 07:20: RBC 2.65 L, Reticulocyte % (Auto) 3.00 H, Absolute Retic 0.080 06/04/24 05:25: PT 20.0 H, INR 1.9 H 06/04/24 05:25: Sodium 136, Potassium 4.3, Chloride 105, Carbon Dioxide 22, Anion Gap 9.0, BUN 37 H, Creatinine 2.0 H, Estimated GFR (MDRD) 32 L, Glucose 131 H, Calcium 8.3 L 06/04/24 05:25: WBC 13.6 H, RBC 2.64 L, Hgb 7.1 L, Hct 22.8 L, MCV 86.4, MCH 26.9 L, MCHC 31.1 L, RDW 18.0 H, Plt Count 286, MPV 10.8, Neut # (Auto) 10.6 H, Lymph # (Auto) 1.4 L, [place] # (Auto) 1.4 H, Eos # (Auto) 0.1, Baso # (Auto) 0.1, Absolute Nucleated RBC 0.00, Nucleated RBC % 0.0 06/03/24 07:15: Sodium 137, Potassium 4.5, Chloride 105, Carbon Dioxide 24, Anion Gap 8.0, BUN 29 H, Creatinine 1.7 H, Estimated GFR (MDRD) 39 L, Glucose 123 H, Calcium 8.6, Magnesium 1.9 06/03/24 07:15: WBC 9.0, RBC 2.89 L, Hgb 7.7 L, Hct 25.5 L, MCV 88.2, MCH 26.6 L , MCHC 30.2 L, RDW 17.9 H, Plt Count 289, MPV 10.6, Neut # (Auto) 6.9 H, Lymph # (Auto) 1.0 L, [place] # (Auto) 0.9, Eos # (Auto) 0.1, Baso # (Auto) 0.1, Absolute Nucleated RBC 0.00, Nucleated RBC % 0.0 06/03/24 07:15: Blood Type O POSITIVE, Antibody Screen NEGATIVE, Crossmatch IS Only See Detail 06/02/24 14:34: Blood Type Recheck O POSITIVE 06/02/24 14:34: PT 22.3 H, INR 2.2 H 06/02/24 14:34: Sodium 136, Potassium 4.1, Chloride 105, Carbon Dioxide 21, Anion Gap 10.0, BUN 25 H, Creatinine 1.4 H, Estimated GFR (MDRD) 49 L, Glucose 145 H, Calcium 9.0, Total Bilirubin 1.0, AST 10, ALT < 3 L, Alkaline Phosphatase 89, Total Protein 7.1, Albumin 3.2, Globulin 3.9, Albumin/Globulin Ratio 0.8 L, Lipase < 10 L 06/02/24 14:34: WBC 11.2 H, RBC 3.28 L, Hgb 8.7 L, Hct 28.9 L, MCV 88.1, MCH 26.5 L, MCHC 30.1 L, RDW 17.8 H, Plt Count 300, MPV 10.1, Neut # (Auto) 9.2 H, Lymph # (Auto) 0.8 L, [place] # (Auto) 0.7, Eos # (Auto) 0.4, Baso # (Auto) 0.1, Absolute Nucleated RBC 0.00, Nucleated RBC % 0.0 Fish Bones: 06/07/24 04:35 06/07/24 04:35 Home Medications and Allergies Home Medications: Ambulatory Orders Benzonatate [Tessalon] 100 mg PO DAILY 06/02/24 Carbidopa/Levodopa [Carbidopa-Levodopa 25-100 Tab] 7.5 tab PO DAILY 06/02/24 Fluticasone Propion/Salmeterol [Advair 250-50 Diskus] 1 puffs PO BID 06/02/24 Active Medications Acetaminophen (Acetaminophen 325 Mg Tablet) 650 mg PO Q4HR PRN PRN Reason: Pain 1 to 4, or Fever Albuterol (Albuterol Neb 2.5 Mg/3 Ml) 2.5 mg INH RTQ4H PRN PRN Reason: Wheezing Allopurinol (Allopurinol 100 Mg Tablet) 50 mg PO DAILY [facility] Last Admin: 06/06/24 08:42 Dose: 50 mg Atorvastatin Calcium (Atorvastatin 40 Mg Tablet) 40 mg PO QPM [facility] Last Admin: 06/06/24 21:26 Dose: 40 mg Calcium Carbonate/Glycine (Calcium Carbonate Chew 500 Mg Tablet) 500 mg PO BID [facility] Last Admin: 06/06/24 21:26 Dose: 500 mg Carvedilol (Carvedilol 12.5 Mg Tablet) 25 mg PO BID [facility] Last Admin: 06/06/24 21:26 Dose: 25 mg Cholecalciferol (Cholecalciferol 25 Mcg Tablet) 50 mcg PO DAILY [facility] Docusate Sodium (Docusate Sodium 250 Mg Capsule) 250 mg PO DAILY [facility] Last Admin: 06/06/24 08:43 Dose: 250 mg Duloxetine HCl (Duloxetine 30 Mg Capsule) 30 mg PO DAILY [facility] Last Admin: 06/06/24 08:43 Dose: 30 mg Finasteride (Finasteride 5 Mg Tablet) 5 mg PO DAILY [facility] Last Admin: 06/06/24 08:42 Dose: 5 mg Hydralazine HCl (Hydralazine 25 Mg Tablet) 25 mg PO Q6H PRN PRN Reason: Blood Pressure Hydromorphone HCl (Hydromorphone 0.5 Mg/0.5 Ml Syringe) 0.5 mg IVP Q2H PRN PRN Reason: Breakthrough Pain Last Admin: 06/02/24 18:27 Dose: 0.5 mg Ampicillin Sodium/Sulbactam (Sodium 3 gm/ Sodium Chloride) 100 mls @ 200 mls/hr IV 0100,1300 [facility] Doxycycline Hyclate 100 mg/ (Sodium Chloride) 100 mls @ 100 mls/hr IV 0000,1200 [facility] Ondansetron HCl (Ondansetron 4 Mg/2 Ml Vial) 4 mg IVP Q6HR PRN PRN Reason: Nausea / Vomiting Oxycodone HCl (Oxycodone 5 Mg Tablet) 5 mg PO Q4HR PRN PRN Reason: Pain 5 to 7 Oxycodone HCl (Oxycodone 5 Mg Tablet) 10 mg PO Q4HR PRN PRN Reason: Pain 8 to 10 Last Admin: 06/02/24 19:50 Dose: 10 mg Pantoprazole Sodium (Pantoprazole 40 Mg Vial) 40 mg IV BID [facility] Last Admin: 06/07/24 00:28 Dose: 40 mg Polyethylene Glycol (Polyethylene Glycol 3350 17 Gm Packet) 17 gm PO DAILY [facility] Last Admin: 06/06/24 08:43 Dose: Not Given Polyethylene Glycol (Polyethylene Glycol 3350 17 Gm Packet) 17 gm PO DAILY PRN PRN Reason: Bowel Protocol Senna (Senna 8.6 Mg Tablet) 8.6 mg PO DAILY [facility] Last Admin: 06/06/24 08:43 Dose: Not Given Sodium Chloride (Sodium Chloride Flush 0.9% 10 Ml Syringe) 10 ml IVP PRN PRN PRN Reason: NEEDED PER PROVIDER ORDERS Sodium Chloride (Sodium Chloride Flush 0.9% 10 Ml Syringe) 10 ml IVP 0100,0900,1700 [facility] Last Admin: 06/07/24 00:28 Dose: 10 ml Tamsulosin HCl (Tamsulosin 0.4 Mg Capsule) 0.4 mg PO DAILY [facility] Last Admin: 06/06/24 08:42 Dose: 0.4 mg Torsemide (Torsemide 20 Mg Tablet) 10 mg PO DAILY [facility] Last Admin: 06/06/24 08:43 Dose: 10 mg Zinc Oxide (Cod Liver Oil/Zinc Oxide 113 Gm Tube) 1 gm TOP BID [facility] Last Admin: 06/06/24 21:26 Dose: 1 applic Apixaban [Eliquis] 5 mg PO BID 01/08/19 Atorvastatin Calcium 40 mg PO QPM 01/08/19 Pantoprazole Sodium [Protonix] 40 mg PO DAILY 01/08/19 allopurinoL [Allopurinol] 100 mg PO DAILY 01/08/19 Losartan Potassium 12.5 mg PO DAILY 06/01/22 DULoxetine [Cymbalta] 30 mg PO DAILY 02/17/24 Empagliflozin [Jardiance] 10 mg PO DAILY 02/17/24 Finasteride [Proscar] 5 mg PO DAILY 02/17/24 Torsemide 10 mg PO DAILY 02/17/24 carvediloL [Coreg] 25 mg PO BID 02/17/24 Nitroglycerin [Nitrostat] 0.4 mg SL ONCE PRN 03/31/24 Tamsulosin [Flomax] 0.8 mg PO QPM 03/31/24 Benzonatate [Tessalon] 100 mg PO DAILY 06/02/24 Carbidopa/Levodopa [Carbidopa-Levodopa 25-100 Tab] 7.5 tab PO DAILY 06/02/24 Fluticasone Propion/Salmeterol [Advair 250-50 Diskus] 1 puffs PO BID 06/02/24 Allergies/Adverse Reactions: Allergies Allergy/AdvReac Type Severity Reaction Status Date / Time hydrocodone Allergy Unknown Verified 06/02/24 14:08 simvastatin [From Zocor] AdvReac Unknown Verified 06/02/24 14:08 Anes History & Medical History - Anesthetic History Anesthesia Complications: reports: No previous complications - Medical History Cardiovascular: reports: Congestive heart failure, Hypertension, High cholesterol, Coronary artery disease, Peripheral Vascular Disease, Atrial flutter, Atrial fibrillation (biventricular icd, ef reported to be 25%), Other Pulmonary: reports: COPD, Shortness of breath, Other (off o2 last night; sats 92-93) Gastrointestinal: reports: GERD, Colon polyps, Chronic diarrhea Urinary: reports: Benign prostate hypertrophy, Renal insuffiency Neuro: reports: Parkinson's, Peripheral neuropathy Musculoskeletal: reports: Osteoarthritis, Gout, Chronic back pain Endocrine/Autoimmune: reports: None Blood Disorders: reports: None Skin: reports: Other Smoking Status: Never smoker Psychosocial: reports: No issues indicated - Surgical History General: reports: Other Eyes Ears Nose Throat (EENT): reports: Cataracts, Tonsil/Adenoidectomy Cardiothoracic: reports: Coronary stent, Pacemaker, Cardiac catheterization Orthopedic: reports: Arthroscopic surgery Results - EKG Results EKG Comparison: Reviewed EKG Exam General: Cooperative (weak appearing) Dental: Poor dentition, Other (no teeth upper, lower incisors in poor condition) Mouth Openin Fingerbreadth Neck Mobility: Reduced Mallampati classification: II Respiratory: Other (no wheezing) Plan Anesthesia Type: General Consent for Procedure(s) Verified and Reviewed: Yes Code Status: Attempt Resuscitation ASA classification: 3-Severe systemic disease Is this case an emergency?: No
[2024-06-07] MEDS ORDERED: ePHEDrine 50 MG/ML VIAL IVP PRN ×2 (07:43→13:25)
[2024-06-07] MEDS ORDERED: HYDROmorphone 0.5 MG/0.5 ML SYRINGE IVP PRN ×2 (07:43→13:25)
[2024-06-07] MEDS ORDERED: NALOXONE 0.4 MG/ML VIAL IVP PRN ×2 (07:43→13:25)
[2024-06-07] MEDS ORDERED: METOCLOPRAMIDE 10 MG/2 ML VIAL IVP PRN ×2 (07:43→13:25)
[2024-06-07] MEDS ORDERED: ONDANSETRON 4 MG/2 ML VIAL IVP PRN ×2 (07:43→13:25)
[2024-06-07] MEDS ORDERED: ATROPINE ABBOJECT 1 MG/10 ML SYRINGE IVP PRN ×2 (07:43→13:25)
[2024-06-07] MEDS ORDERED: fentaNYL 100 MCG/2 ML VIAL IVP PRN ×2 (07:43→13:25)
[2024-06-07] MEDS ORDERED: LACTATED RINGERS 1,000 ML IV SCH ×2 (08:00→13:25)
--- NOTE | 2024-06-07 08:16 | PROVIDER PROGRESS NOTE ---
Assessment/Plan - Problem List (1) Bimalleolar fracture of right ankle Qualifiers: Encounter type: initial encounter Fracture type: closed Qualified Code(s): S82.841A - Displaced bimalleolar fracture of right lower leg, initial encounter for closed fracture Assessment/Plan: Qualifiers: Encounter type: initial encounter Fracture type: closed Qualified Code(s): S82.841A - Displaced bimalleolar fracture of right lower leg, initial encounter for closed fracture Assessment/Plan: Impression: He has a closed bimalleolar fracture of his right ankle that is acute in nature He underwent splinting in the emergency department. Last dose of Eliquis was around 10 AM on 06/02/2024. Originally planning for OR on 06/05/24 afternoon. Tylenol, oxycodone or hydromorphone available as needed for pain. PT/OT after surgery. Anticipate SNF placement. Patient is at moderate risk for perioperative pulmonary and cardiac morbidity. However, this is unlikely to change and no further diagnostic workup would improve his condition. Recommend proceeding with surgery. Patient in currently in operating room for repair of his fracture. (2) Acute cystitis without hematuria Impression: Urine culture shows Enterococcus faecalis (pansensitive aside from resistant to tetracyclines).Continue Unasyn (3) Acute metabolic encephalopathy Impression: Resolved. Patient is alert and oriented to person time place and situation. (4) Acute respiratory failure with hypoxia Impression: Resolving. Patient currently on room air. Continue to encourage use of in centive spirometer on an hourly basis during daylight hours. Continue IV Unasyn and doxycycline for empiric coverage for possible aspiration. Blood cultures with no growth to date Continue 10 mg PO Torsemide (5) Acute on chronic anemia Impression: Stable. Hemoglobin/Hematocrit increased from 7.6/25.2 to 8.4/26.9 post transfusion. Continue to monitor. (6) Chronic kidney disease, stage 3b Impression: His baseline renal function varies around creatinine of 1.6-2.0. Creatinine is 1.8 Avoid nephrotoxins if possible. Renally dose medications as appropriate. Creatinine is stable but on the upper end of his normal range. (7) Ischemic cardiomyopathy Impression: Follows with Dr. Abernathy in cardiology at [facility] cardiology [facility]. Has a history of an LVEF 25% in 2021 however it is unclear if he had a more recent echocardiogram through [facility]. Status post biventricular ICD in place Currently he appears euvolemic. Will resume home Torsemide today. Continue home Coreg, atorvastatin. (8) History of coronary artery disease Impression: Has a history of stenting in 1999 and 2015. He was also admitted to our facility in 2021 for pulmonary edema and NSTEMI, which was treated medically at the time. He denies any recent history of chest pain, exertional chest pain or dyspnea. (9) Chronic atrial fibrillation Impression: Currently rate controlled but irregular heart rate. Continue home Coreg 25 mg twice daily. Hold Eliquis for surgical repair. (10) COPD without exacerbation Impression: No acute issues currently. Does not appear to be having a COPD exacerbation as a cause of his hypoxia. PRN Albuterol. - Current Meds Current Meds: Current Medications Generic Name Dose Route Start Last Admin Trade Name Freq PRN Reason Stop Dose Admin Allopurinol 50 mg 06/03/24 10:17 06/06/24 08:42 Allopurinol 100 Mg Tablet PO 50 mg DAILY [facility] Administration Atorvastatin Calcium 40 mg 06/02/24 21:00 06/06/24 21:26 Atorvastatin 40 Mg Tablet PO 40 mg QPM [facility] Administration Calcium Carbonate/Glycine 500 mg 06/06/24 21:00 06/06/24 21:26 Calcium Carbonate Chew 500 Mg Tablet PO 500 mg BID [facility] Administration Carvedilol 25 mg 06/02/24 21:00 06/07/24 08:08 Carvedilol 12.5 Mg Tablet PO 25 mg BID [facility] Administration Docusate Sodium 250 mg 06/06/24 09:00 06/06/24 08:43 Docusate Sodium 250 Mg Capsule PO 250 mg DAILY [facility] Administration Duloxetine HCl 30 mg 06/03/24 09:00 06/06/24 08:43 Duloxetine 30 Mg Capsule PO 30 mg DAILY [facility] Administration Finasteride 5 mg 06/03/24 09:00 06/06/24 08:42 Finasteride 5 Mg Tablet PO 5 mg DAILY [facility] Administration Hydromorphone HCl 0.5 mg 06/02/24 17:48 06/02/24 18:27 Hydromorphone 0.5 Mg/0.5 Ml Syringe IVP 0.5 mg Q2H PRN Administration Breakthrough Pain Oxycodone HCl 10 mg 06/02/24 17:48 06/02/24 19:50 Oxycodone 5 Mg Tablet PO 10 mg Q4HR PRN Administration Pain 8 to 10 Pantoprazole Sodium 40 mg 06/05/24 21:00 06/07/24 00:28 Pantoprazole 40 Mg Vial IV 40 mg BID [facility] Administration Polyethylene Glycol 17 gm 06/04/24 09:00 06/06/24 08:43 Polyethylene Glycol 3350 17 Gm Packet PO Not Given DAILY [facility] Senna 8.6 mg 06/05/24 12:00 06/06/24 08:43 Senna 8.6 Mg Tablet PO Not Given DAILY [facility] Sodium Chloride 10 ml 06/03/24 01:00 06/07/24 08:13 Sodium Chloride Flush 0.9% 10 Ml Syringe IVP 10 ml 0100,0900,1700 [facility] Administration Tamsulosin HCl 0.4 mg 06/03/24 09:00 06/06/24 08:42 Tamsulosin 0.4 Mg Capsule PO 0.4 mg DAILY [facility] Administration Torsemide 10 mg 06/05/24 12:00 06/06/24 08:43 Torsemide 20 Mg Tablet PO 10 mg DAILY [facility] Administration Zinc Oxide 1 gm 06/03/24 18:00 06/06/24 21:26 Cod Liver Oil/Zinc Oxide 113 Gm Tube TOP 1 applic BID [facility] Administration - Lab Result Fish Bone Diagrams: 06/07/24 04:35 06/07/24 04:35 - Additional Planning My Orders: My Active Orders 06/06/24 17:16 Transfuse RBCs Leukoreduced [RC] .ONCE 06/06/24 21:00 Calcium Carbonate [Tums] 500 mg PO BID 06/07/24 04:35 VITAMIN D 25-HYDROXY [REFLAB] Routine 06/07/24 09:00 Cholecalciferol [Vitamin D3] 50 mcg PO DAILY Subjective - Subjective Patient Reports: Other Objective Vital Signs: Vital Signs - 24 hr 06/06/24 06/06/24 06/06/24 11:30 15:39 20:06 Temperature 36.6 C 36.6 C 36.6 C Heart Rate [ 63 68 65 Brachial] Respiratory 16 20 18 Rate Blood Pressure 175/65 H [Left Brachial artery] Blood Pressure 159/68 H 159/69 H [Right Brachial artery] O2 Saturation 95 96 94 If not protocol 2.5 : Oxygen Flow, liters/minute 06/06/24 06/06/24 06/07/24 20:21 23:59 00:31 Temperature 36.6 C 36.6 C 36.7 C Heart Rate [ 65 71 Brachial] Respiratory 18 16 Rate Blood Pressure 174/67 H 168/60 H [Left Brachial artery] Blood Pressure [Right Brachial artery] O2 Saturation 94 92 If not protocol : Oxygen Flow, liters/minute 06/07/24 06/07/24 04:18 08:12 Temperature 37.0 C Heart Rate [ 68 67 Brachial] Respiratory 20 Rate Blood Pressure 151/66 H [Left Brachial artery] Blood Pressure 146/61 H [Right Brachial artery] O2 Saturation 93 If not protocol : Oxygen Flow, liters/minute Oxygen O2 Source Room air I&O (Last 24 Hrs): Intake and Output Totals x24h 06/05/24 06/06/24 06/07/24 23:59 23:59 23:59 Intake Total 2440 1300 500 Balance 2440 1300 500 General: Alert, Oriented x3, No acute distress Neck: No JVD Neuro: Non Focal Cardiovascular: Other Respiratory: Other Abdomen: Other Extremities: No cyanosis Skin: No rashes - Results Results: Laboratory Results WBC 11.5 x10^3/uL (4.8-10.8) H 06/07/24 04:35 RBC 3.12 10^6/uL (4.70-6.10) L 06/07/24 04:35 Hgb 8.4 g/dL (14.0-18.0) L 06/07/24 04:35 Hct 26.9 % (42.0-52.0) L 06/07/24 04:35 MCV 86.2 fL (80.0-94.0) 06/07/24 04:35 MCH 26.9 pg (27.0-31.0) L 06/07/24 04:35 MCHC 31.2 g/dL (32.0-36.0) L 06/07/24 04:35 RDW 17.6 % (12.0-15.0) H 06/07/24 04:35 Plt Count 341 10^3/uL (130-450) 06/07/24 04:35 MPV 10.7 fL (7.4-11.4) 06/07/24 04:35 Reticulocyte % (Auto) 3.00 % (0.5-2.3) H 06/04/24 07:20 Neut # (Auto) 9.6 10^3/uL (1.5-6.6) H 06/07/24 04:35 Lymph # (Auto) 1.0 10^3/uL (1.5-3.5) L 06/07/24 04:35 [place] # (Auto) 0.8 10^3/uL (0.0-1.0) 06/07/24 04:35 Eos # (Auto) 0.0 10^3/uL (0.0-0.7) 06/07/24 04:35 Baso # (Auto) 0.0 10^3/uL (0.0-0.1) 06/07/24 04:35 Absolute Nucleated RBC 0.06 x10^3/uL 06/07/24 04:35 Nucleated RBC % 0.5 /100WBC 06/07/24 04:35 Absolute Retic 0.080 10^6/uL (0.020-0.110) 06/04/24 07:20 PT 17.2 secs (9.9-12.6) H 06/07/24 06:24 INR 1.6 (0.8-1.2) H 06/07/24 06:24 Sodium 141 mmol/L (135-145) 06/07/24 04:35 Potassium 4.4 mmol/L (3.5-4.5) 06/07/24 04:35 Chloride 106 mmol/L (101-111) 06/07/24 04:35 Carbon Dioxide 25 mmol/L (21-32) 06/07/24 04:35 Anion Gap 10.0 (6-13) 06/07/24 04:35 BUN 57 mg/dL (6-20) H 06/07/24 04:35 Creatinine 1.8 mg/dL (0.6-1.3) H 06/07/24 04:35 Estimated GFR (MDRD) 36 (>89) L 06/07/24 04:35 Glucose 137 mg/dL (74-104) H 06/07/24 04:35 Calcium 8.4 mg/dL (8.5-10.3) L 06/07/24 04:35 Magnesium 1.9 mg/dL (1.7-2.3) 06/03/24 07:15 Iron < 10 ug/dL (50-212) L 06/04/24 07:20 TIBC 259 ug/dL (250-450) 06/04/24 07:20 % Saturation TNP 06/04/24 07:20 Transferrin 185 mg/dL (203-362) L 06/04/24 07:20 Ferritin 71.4 ng/mL (23.9-336.2) 06/04/24 07:20 Total Bilirubin 0.8 mg/dL (0.2-1.0) 06/05/24 05:01 Direct Bilirubin 0.25 mg/dL (0.03-0.18) H 06/05/24 05:01 AST 15 IU/L (10-42) 06/05/24 05:01 ALT 8 IU/L (10-60) L 06/05/24 05:01 Alkaline Phosphatase 69 IU/L (42-121) 06/05/24 05:01 Total Protein 6.3 g/dL (6.4-8.9) L 06/05/24 05:01 Albumin 2.8 g/dL (3.2-5.5) L 06/05/24 05:01 Globulin 3.5 g/dL (2.1-4.2) 06/05/24 05:01 Albumin/Globulin Ratio 0.8 (1.0-2.2) L 06/02/24 14:34 Lipase < 10 U/L (11-82) L 06/02/24 14:34 Vitamin B12 122 pg/mL (180-914) L 06/06/24 04:25 Urine Color YELLOW 06/03/24 14:30 Urine Clarity HAZY (CLEAR) 06/03/24 14:30 Urine pH 6.0 PH (5.0-7.5) 06/03/24 14:30 Ur Specific [place] 1.020 (1.002-1.030) 06/03/24 14:30 Urine Protein TRACE mg/dL (NEGATIVE) 06/03/24 14:30 Urine Glucose (UA) >=1000 mg/dL (NEGATIVE) H 06/03/24 14:30 Urine Ketones NEGATIVE mg/dL (NEGATIVE) 06/03/24 14:30 Urine Occult Blood NEGATIVE (NEGATIVE) 06/03/24 14:30 Urine Nitrite NEGATIVE (NEGATIVE) 06/03/24 14:30 Urine Bilirubin NEGATIVE (NEGATIVE) 06/03/24 14:30 Urine Urobilinogen 1 (NORMAL) E.U./dL (NORMAL) 06/03/24 14:30 Ur Leukocyte Esterase TRACE (NEGATIVE) H 06/03/24 14:30 Urine RBC 0-5 /HPF (0-5) 06/03/24 14:30 Urine WBC >25 /HPF (0-3) H 06/03/24 14:30 Urine WBC Clumps PRESENT 06/03/24 14:30 Ur Squamous Epith Cells FEW Squamous (<= Few) 06/03/24 14:30 Urine Bacteria Few /HPF (None Seen) 06/03/24 14:30 Urine Culture Comments INDICATED 06/03/24 14:30 Nasal Influenza B PCR NOT DETECTED 06/04/24 18:50 Nasal Influenza A PCR NOT DETECTED 06/04/24 18:50 Nasal RSV (PCR) NOT DETECTED 06/04/24 18:50 Nasal SARS-CoV-2 (PCR) NOT DETECTED 06/04/24 18:50 Blood Type O POSITIVE 06/06/24 18:06 Blood Type Recheck O POSITIVE 06/02/24 14:34 Antibody Screen NEGATIVE 06/06/24 18:06 Crossmatch IS Only See Detail 06/06/24 18:06 - Procedures Procedures: Procedures CATARAC PHACOEMULS/ASPIR (03/07/14) EXCISION OF LARGE INTESTINE, ENDO, DIAGN (05/12/18) INSERT LENS AT CATAR EXT (03/07/14) Sepsis Event Note (H) - Evaluation Current Stage of Sepsis: Ruled out
[2024-06-07] MEDS ORDERED: KETAMINE 200 MG/20 ML VIAL ONE (09:01)
[2024-06-07] MEDS: BUPIVACAINE 0.25% PF 30 ML VIAL SUBQ ONE ×2 (09:13)
[2024-06-07] MEDS ORDERED: HYDROmorphone 1 MG/ML CARPUJECT ONE (09:38)
[2024-06-07] MEDS ORDERED: ceFAZolin 1 GM VIAL ONE ×2 (11:48)
[2024-06-07] MEDS ORDERED: DEXAMETHASONE 4 MG/ML VIAL ONE (12:33)
[2024-06-07] MEDS ORDERED: ONDANSETRON 4 MG/2 ML VIAL ONE (12:33)
[2024-06-07] MEDS ORDERED: ACETAMINOPHEN 1,000 MG/100 ML 1,000 MG/100 ML BAG IV ONE (12:47)
[2024-06-07] MEDS ORDERED: SUGAMMADEX 200 MG/2 ML VIAL IVP ONE (12:53)
[2024-06-07] MEDS ORDERED: BACITRACIN ZINC OINT 1 PACKET TOP ONE ×2 (13:00→13:04)
[2024-06-07] MEDS ORDERED: AMPICILLIN/SULBACTAM 3 GM in SODIUM CHLORIDE 0.9% MINIBAG 100 ML IV SCH (13:00)
[2024-06-07] MEDS ORDERED: ALBUTEROL 6.7 GM INHALER INH ONE (13:02)
[2024-06-07] MEDS: BACITRACIN ZINC OINT 14 GM TOP ONE (13:02)
[2024-06-07] MEDS: LACTATED RINGERS 1,000 ML IV ONE ×2 (13:20→13:29)
[2024-06-07] MEDS ORDERED: DOCUSATE SODIUM 100 MG CAPSULE PO PRN (13:22)
--- NOTE | 2024-06-07 13:29 | OPERATIVE REPORT ---
Operative Report - General Admit Date: 06/02/24 Procedure Date: 06/07/24 Planned Procedure: Open reduction and internal fixation of right bimalleolar ankle fracture Pre-Op Diagnosis: Closed displaced right bimalleolar ankle fracture Procedure Performed: Open reduction and internal fixation of displaced right bimalleolar ankle fracture Post Op Diagnosis: Same - Procedure Note Primary Surgeon: Carmelina Dowling MD Anesthesia Provider: Esvin Pierre CRNA Anesthesia Technique: General ET tube IV Fluids (mL): 1,500 Estimated Blood Loss (mL): 400 Complications: None - Other Other Information/Narrative: Description of procedure: Patient was taken the operating room on the day of his surgery where he was placed under a general anesthetic without any complications. He remained positioned supine. Thigh pneumatic tourniquet was then placed in the right lower extremity throughout but was not inflated during our procedure. Patient had a hip bump placed underneath the right hip to. We then prepped and draped the right lower extremity in the usual fashion for our procedure. Skin was noted to have numerous fracture blisters that were present some that have been opened while in the splint others were open during the prep. Drainage was clear and serous in nature. No gross purulence or obvious infection was present. Through a long longitudinal lateral skin incision we dissected down to the butterfly fragment in the midshaft fibular region. After several attempts to reduce the fracture we were having difficulties getting the fracture out to length. We decided to put in a calcaneal traction pin. Large Steinmann pin was then drilled with power transversely through the calcaneus. Traction bow was then applied to the inserted calcaneal pin to allow for longitudinal traction of our leg. Was also noted that the medial malleolar fragment had been displacement of the joint. This was blocking our reduction. We then made a curvilinear skin incision overlying the medial malleolus. We were then able to reposition the medial malleolar fragment out of the joint and medial. The wound and the joint was then irrigated out thoroughly with saline. Medial malleolar fragment nearly fell in the place anatomically when we did this. Traction on the leg to the calcaneal pin also helped us with the reduction of the fibular fracture. We first reduced the most distal portion of the butterfly fragment to the distal fibular shaft fragment. Holding this in place with towel clip reduction clamps and then proceeded to insert a 3.5 millimeter cortical screws used as a interfrag metal screw. This provide provisional fixation for this portion of the fracture. Next our attention was directed proximally where again under traction and gentle manipulation we were able to reduce the proximal portion of the butterfly fragment to the proximal fibular shaft holding in place with a towel clip reduction clamp. Provisional fixation was obtained using an interfrag metal screws x 2 in a similar fashion as we did with the distal end of the butterfly fragment. Fluoroscopic view showed that we had a good reduction of the fibular shaft fractures. Next we applied a 12 hole one third tubular plate along the fibular shaft fracture. Were able to get 3 screw holes of the proximal end of the plate into the proximal fibular fragment and 2 almost 3 holes in the distal end of the plate crossing into the distal fibular fragment. Holding this plate and position with a lobster tail clamp we then proceeded to fill the proximal 3 holes and the distal 2 holes of the plate with 3 to 5 mm cortical screws of the appropriate length. One of the screws in the proximal end of the plate we used a locking 3.5 millimeter cortical screw (the second from the proximal and). The fracture appeared to be out to length and there was a little displacement of a portion of the butterfly fragment in the mid part of our plate. This was noted with fluoroscopic views. Using a lobster claw clamp were able to reduce this fragment nicely on fluoroscopic views. We then proceeded to use the 3 of the central holes of our one third tubular plate to hold the reduced butterfly fragment up against the fibular shaft. X-rays obtained that we inserted these 3 additional 3-5 mm cortical screw showed a good reduction of our fibular shaft fracture. We then directed that our attention down toward the ankle joint. Using a large towel clip reduction clamp and with the ankle in neutral position we then reduced the distal tibiofibular joint with this clamp. Fluoroscopic views and AP and and mortise view show the reduction of the mortise joint. Next we used a curette to remove the fracture hematoma from the medial malleolar fragment. Using towel clip reduction clamp were able to reduce the medial malleolar fracture in good position. We then proceeded to insert 2 threaded tip guidewires from the 4.0 cannulated screw set spanning our medial malleolar fracture. We determined we would use to-36 mm short threaded cannulated screws for fixation. Cannulated drill was then used to perforate the cortical bone of the medial malleolus. Then we followed over our inserted guidepins with the selected cannulated screws. We got a good purchase and good compression of our fracture. Fluoroscopic views showed good reduction in AP and lateral projections of the medial malleolar fragment. Removed the guidepins with power. Next we then applied a small 2 hole one third tubular plate to use as a buttress plate for our syndesmosis fixation. Using the 3 to 5 mm drill we then drilled parallel to the ankle joint across the distal fibula and distal tibia. The appropriate length 4.7 millimeter cortical screw was then applied through our drilled hole. This allowed for good fixation of our stabilized and reduced syndesmosis. A second screw was then applied and the distal end of our small plate. Since this was bumping abut against our medial malleolar screws we did not get we only obtained 3 cortical fixation on the second screw. The appropriate length for that 4.7 mm cortical screw was then inserted. Final x-rays obtained at the ankle and along the fibular shaft demonstrating good reduction of our fractures reduction of the syndesmosis disruption with reestablishing the ankle mortise joint. We then proceeded irrigated both wounds thoroughly with saline. We then closed the wound in layers using 3-0 Vicryl to close the subcutaneous tissues and skin stan approximate the skin edge. We then applied Xeroform gauze to the wounds and the open blisters followed with sterile Webril and over sterile 4 x 4 dressings. All short leg posterior splint was then applied to the leg. Patient was woken from his anesthesia and taken to recovery room in satisfactory condition. Estimated blood loss: 400 mL Replacement: 1500 mL Intraoperative complications: None Plan: Patient will need to be in a short leg posterior splint and nonweightbearing for the next week to 2 weeks. Ultimately he will go into a short leg now walking cast for balance of 4 to 6 weeks before we begin out of cast weightbearing ambulation.
[2024-06-07] MEDS: CHOLECALCIFEROL 25 MCG TABLET PO SCH (13:32)
[2024-06-07] MEDS ORDERED: ceFAZolin (2G) 2 GM in SODIUM CHLORIDE 0.9% MINIBAG 100 ML IV SCH (14:00)
[2024-06-07 14:29] LABS: HCT - HEMATOCRIT 23.7 % (42.0-52.0); HGB - HEMOGLOBIN 7.2 g/dL (14.0-18.0)
--- NOTE | 2024-06-07 15:05 | ANESTHESIA POST OP EVALUATION ---
Anesthesia Post Eval - Post Anesthesia Eval Vitals: Last Vital Signs Temp 36.4 C L 06/07/24 15:01 Pulse 65 06/07/24 15:01 Resp 13 06/07/24 15:01 BP 106/49 L 06/07/24 15:01 Pulse Ox 98 06/07/24 15:01 O2 Flow Rate 2.5 06/06/24 11:30 CV Function Including HR & BP: Stable Pain Control: Satisfactory Nausea & Vomiting: Negative Mental Status: Baseline Respiratory Status: Airway Patent Hydration Status: Satisfactory Anesthesia Complications: None - Other Details/Therapies Other Details/Therapies: HB/HCT 7.2 reported to hospitalist, I left it up to them to transfuse if desired, blood available. Patient confused but rowsable, near baseline, SBP maintaining in 100's. May transfer to floor.
[2024-06-07] MEDS: DOXYCYCLINE INJ 100 MG in SODIUM CHLORIDE 0.9% MINIBAG 100 ML IV SCH (15:41)
[2024-06-07] MEDS: AMPICILLIN/SULBACTAM 3 GM in SODIUM CHLORIDE 0.9% MINIBAG 100 ML IV SCH (15:41)
[2024-06-07] MEDS: ACETAMINOPHEN 500 MG TABLET PO SCH (15:51)
[2024-06-07] MEDS: CYANOCOBALAMIN 1,000 MCG/ML VIAL IM ONE ×2 (16:14→16:18)
[2024-06-07] MEDS: SODIUM CHLORIDE FLUSH 0.9% 10 ML SYRINGE IVP SCH (16:15)
[2024-06-07] MEDS: NS W/20 MEQ KCL 1,000 ML IV SCH (18:35)
[2024-06-07] MEDS: SODIUM CHLORIDE FLUSH 0.9% 10 ML SYRINGE IVP PRN (18:35)
--- NOTE | 2024-06-07 20:11 | XRAY Report ---
PROCEDURE: OR C-Arm Procedure INDICATIONS: ORIF ANKLE (RIGHT) TECHNIQUE: Intraoperative fluoroscopic guidance was provided and low-resolution fluoroscopic spot josh ms were obtained. COMPARISON: None. FINDINGS: Low-resolution intraoperative spot films show distal fibular fracture transfixed with later al cortical sideplate and screws. The distal fibular syndesmotic and medial malleolar screws in good position as well IMPRESSION: Fluoroscopic guidance. Reviewed by: Deniz Bach MD on 06/07/2024 7:09 PM [facility] Approved by: Deniz Bach MD on 06/07/2024 7:09 PM [facility] Station ID: [id number]
[2024-06-07] MEDS: CELECOXIB 100 MG CAPSULE PO SCH (20:50)
[2024-06-07] MEDS: ASPIRIN EC 81 MG TABLET PO SCH (20:50)
[2024-06-07] MEDS: ethyl alcohoL 62% SWAB AMPULE NAS SCH (20:51)
[2024-06-08 04:57] LABS: BASOPHILS % (AUTO) 0.1 %; HCT - HEMATOCRIT 21.9 % (42.0-52.0); LYMPHOCYTES # (AUTO) 1.1 10^3/uL (1.5-3.5); LYMPHOCYTES % (AUTO) 8.2 %; MEAN CORPUSCULAR HEMOGLOBIN 27.3 pg (27.0-31.0); MEAN CORPUSCULAR HGB CONC 30.1 g/dL (32.0-36.0); MEAN CORPUSCULAR VOLUME 90.5 fL (80.0-94.0); MEAN PLATELET VOLUME 10.6 fL (7.4-11.4); MONOCYTES % (AUTO) 7.7 %; NEUTROPHILS # (AUTO) 11.2 10^3/uL (1.5-6.6); NEUTROPHILS % (AUTO) 83.4 %; NRBC ABSOLUTE COUNT (AUTO) 0.03 x10^3/uL; NUCLEATED RED BLOOD CELLS AUTO 0.2 /100WBC; PLT - PLATELET COUNT 303 10^3/uL (130-450); RED BLOOD COUNT 2.42 10^6/uL (4.70-6.10); RED CELL DISTRIBUTION WIDTH 17.7 % (12.0-15.0); WHITE BLOOD COUNT 13.4 x10^3/uL (4.8-10.8)
[2024-06-08 05:02] LABS: HGB - HEMOGLOBIN 6.6 g/dL (14.0-18.0)
[2024-06-08 05:15] LABS: CALCIUM 7.8 mg/dL (8.5-10.3); CREATININE 2.2 mg/dL (0.6-1.3); MAGNESIUM 2.1 mg/dL (1.7-2.3); PHOSPHORUS 4.9 mg/dL (2.5-5.0); POTASSIUM 4.9 mmol/L (3.5-4.5)
[2024-06-08] MEDS: SODIUM CHLORIDE FLUSH 0.9% 10 ML SYRINGE IVP PRN (06:16)
--- NOTE | 2024-06-08 07:56 | PROVIDER PROGRESS NOTE ---
Subjective - Prog Note Date Prog Note Date: 06/08/24 Prog Note Time: 07:54 - Subjective Pt reports feeling: Improved Objective - Vital Signs/Intake & Output Vital Signs: Vital Signs x48h Temp Pulse Resp BP Pulse Ox O2 Flow Rate 06/08/24 07:46 97 1 06/08/24 07:36 36.6 C 66 16 143/63 H 95 2 06/08/24 07:31 2 06/08/24 06:26 36.3 C L 65 16 140/59 H 94 2 06/08/24 06:03 36.4 C L 66 16 134/64 H 94 2 06/08/24 04:51 36.6 C 66 16 133/54 H 94 2 Intake & Output: Intake & Output 06/05/24 06/06/24 06/07/24 06/08/24 23:59 23:59 23:59 23:59 Intake Total 2440 1300 1500 200 Balance 2440 1300 1500 200 - Lab Results Fish Bones: 06/08/24 04:25 06/08/24 04:25 Other Labs: Lab Results x24hrs 06/08/24 06/08/24 06/07/24 Range/Units 04:25 04:25 14:15 WBC 13.4 H (4.8-10.8) x10^3/uL RBC 2.42 L (4.70-6.10) 10^6/uL Hgb 6.6 L* 7.2 L (14.0-18.0) g/dL Hct 21.9 L 23.7 L (42.0-52.0) % MCV 90.5 (80.0-94.0) fL MCH 27.3 (27.0-31.0) pg MCHC 30.1 L (32.0-36.0) g/dL RDW 17.7 H (12.0-15.0) % Plt Count 303 (130-450) 10^3/uL MPV 10.6 (7.4-11.4) fL Neut # (Auto) 11.2 H (1.5-6.6) 10^3/uL Lymph # (Auto) 1.1 L (1.5-3.5) 10^3/uL [place] # (Auto) 1.0 (0.0-1.0) 10^3/uL Eos # (Auto) 0.0 (0.0-0.7) 10^3/uL Baso # (Auto) 0.0 (0.0-0.1) 10^3/uL Absolute Nucleated RBC 0.03 x10^3/uL Nucleated RBC % 0.2 /100WBC Sodium 142 (135-145) mmol/L Potassium 4.9 H (3.5-4.5) mmol/L Chloride 109 (101-111) mmol/L Carbon Dioxide 24 (21-32) mmol/L Anion Gap 9.0 (6-13) BUN 72 H (6-20) mg/dL Creatinine 2.2 H (0.6-1.3) mg/dL Estimated GFR (MDRD) 29 L (>89) Glucose 132 H (74-104) mg/dL Calcium 7.8 L (8.5-10.3) mg/dL Phosphorus 4.9 (2.5-5.0) mg/dL Magnesium 2.1 (1.7-2.3) mg/dL Vitamin D 25-Hydroxy (30.0-100.0) ng/mL Blood Type Antibody Screen Crossmatch IS Only 06/07/24 06/06/24 Range/Units 04:35 18:06 WBC (4.8-10.8) x10^3/uL RBC (4.70-6.10) 10^6/uL Hgb (14.0-18.0) g/dL Hct (42.0-52.0) % MCV (80.0-94.0) fL MCH (27.0-31.0) pg MCHC (32.0-36.0) g/dL RDW (12.0-15.0) % Plt Count (130-450) 10^3/uL MPV (7.4-11.4) fL Neut # (Auto) (1.5-6.6) 10^3/uL Lymph # (Auto) (1.5-3.5) 10^3/uL [place] # (Auto) (0.0-1.0) 10^3/uL Eos # (Auto) (0.0-0.7) 10^3/uL Baso # (Auto) (0.0-0.1) 10^3/uL Absolute Nucleated RBC x10^3/uL Nucleated RBC % /100WBC Sodium (135-145) mmol/L Potassium (3.5-4.5) mmol/L Chloride (101-111) mmol/L Carbon Dioxide (21-32) mmol/L Anion Gap (6-13) BUN (6-20) mg/dL Creatinine (0.6-1.3) mg/dL Estimated GFR (MDRD) (>89) Glucose (74-104) mg/dL Calcium (8.5-10.3) mg/dL Phosphorus (2.5-5.0) mg/dL Magnesium (1.7-2.3) mg/dL Vitamin D 25-Hydroxy 22.3 L (30.0-100.0) ng/mL Blood Type O POSITIVE Antibody Screen NEGATIVE Crossmatch IS Only See Detail - Other Results/Comments Other Results/Comments: EXAM: Appears more awake this AM. More communicative Splint ok Moving toes well Sensation intact, even in first doral webspace! (diminished preop) LAB: Hct 22 Sepsis Event Note (H) - Evaluation Current Stage of Sepsis: Ruled out Assessment/Plan - Problem List (1) Bimalleolar ankle fracture Impression: Doing well PLAN: Mobilize as tolerated. Standing - NWB on right splinted leg. Walker ambulate - NWB on right as tolerated. Qualifiers: Encounter type: initial encounter Fracture type: closed Laterality: right Qualified Code(s): S82.841A - Displaced bimalleolar fracture of right lower leg, initial encounter for closed fracture
[2024-06-08] MEDS: CYANOCOBALAMIN 500 MCG TABLET PO SCH (08:45)
[2024-06-08 11:49] LABS: HCT - HEMATOCRIT 24.5 % (42.0-52.0); HGB - HEMOGLOBIN 7.5 g/dL (14.0-18.0)
--- NOTE | 2024-06-08 17:02 | PROVIDER PROGRESS NOTE ---
Assessment/Plan - Problem List (1) Bimalleolar fracture of right ankle Qualifiers: Encounter type: initial encounter Fracture type: closed Qualified Code(s): S82.841A - Displaced bimalleolar fracture of right lower leg, initial encounter for closed fracture Assessment/Plan: Impression: Mr. Flynn underwent open reduction and internal fixation of displaced right bimalleolar ankle fracture on June 07, 2024. He will be in a short leg posterior splint and nonweightbearing for the next 1-2 weeks. Plan is to transition him to a short leg walking cast for 4 to 6 weeks prior to out of cast weightbearing ambulation. Continue PT/OT as tolerated. Mobilize as tolerated with nonweight bearing on splinted right leg. Anticipate SNF placement. (2) Acute cystitis without hematuria Impression: Urine culture shows Enterococcus faecalis (pansensitive aside from resistant to tetracyclines).Continue Unasyn (3) Acute metabolic encephalopathy Impression: Resolved. Patient is alert and oriented to person time place and situation. (4) Acute respiratory failure with hypoxia Impression: Resolving. Continues on room air. Continue to encourage use of incentive sp irometer on an hourly basis during daylight hours. Continue IV Unasyn and doxycycline for empiric coverage for possible aspiration. Blood cultures with no growth to date Continue 10 mg PO Torsemide (5) Acute on chronic anemia Impression: Patient had 400 mL blood loss perioperatively. Overnight he received 1 unit of packed red blood cells with appropriate increase of hemoglobin/hematocrit. (6) Chronic kidney disease, stage 3b Impression: BUN/Creatinine has increased overnight from 57/1.8 to 72/2.2. Continue to monitor. Avoid nephrotoxins if possible. Renally dose medications as appropriate. (7) Ischemic cardiomyopathy Impression: Follows with Dr. Abernathy in cardiology at [facility] cardiology clinic. Has a history of an LVEF 25% in 2021 however it is unclear if he had a more recent echocardiogram through [facility]. Status post biventricular ICD in place Currently he appears euvolemic. Continue torsemide Continue home Coreg, atorvastatin. (8) History of coronary artery disease Impression: Has a history of stenting in 1999 and 2015. He was also admitted to our facility in 2021 for pulmonary edema and NSTEMI, which was treated medically at the time. He denies any recent history of chest pain, exertional chest pain or dyspnea. (9) Chronic atrial fibrillation Impression: Currently rate controlled but irregular heart rate. Continue home Coreg 25 mg twice daily. Restart apixaban at 2.5 mg twice daily. (10) COPD without exacerbation Impression: No acute issues currently. Does not appear to be having a COPD exacerbation as a cause of his hypoxia. PRN Albuterol. - Current Meds Current Meds: Current Medications Generic Name Dose Route Start Last Admin Trade Name Gregorio PRN Reason Stop Dose Admin Acetaminophen 1,000 mg 06/07/24 14:00 06/08/24 13:38 Acetaminophen 500 Mg Tablet PO 1,000 mg Q6H GABBI Administration Alcohol 1 amp 06/07/24 21:00 06/08/24 08:43 Ethyl Alcohol 62% Swab Ampule ADDIE 1 amp BID GABBI Administration Allopurinol 50 mg 06/03/24 10:17 06/08/24 08:45 Allopurinol 100 Mg Tablet PO 50 mg DAILY GABBI Administration Aspirin 81 mg 06/07/24 21:00 06/08/24 08:44 Aspirin Ec 81 Mg Tablet PO 81 mg BID GABBI Administration Atorvastatin Calcium 40 mg 06/02/24 21:00 06/07/24 20:50 Atorvastatin 40 Mg Tablet PO 40 mg QPM GABBI Administration Calcium Carbonate/Glycine 500 mg 06/06/24 21:00 06/08/24 08:43 Calcium Carbonate Chew 500 Mg Tablet PO 500 mg BID GABBI Administration Carvedilol 25 mg 06/02/24 21:00 06/08/24 08:44 Carvedilol 12.5 Mg Tablet PO 25 mg BID GABBI Administration Celecoxib 200 mg 06/07/24 21:00 06/08/24 08:44 Celecoxib 100 Mg Capsule PO 200 mg BID GABBI Administration Cholecalciferol 50 mcg 06/07/24 09:00 06/08/24 08:44 Cholecalciferol 25 Mcg Tablet PO 50 mcg DAILY GABBI Administration Cyanocobalamin 500 mcg 06/08/24 09:00 06/08/24 08:45 Cyanocobalamin 500 Mcg Tablet PO 500 mcg DAILY GABBI Administration Docusate Sodium 250 mg 06/06/24 09:00 06/08/24 08:45 Docusate Sodium 250 Mg Capsule PO 250 mg DAILY GABBI Administration Duloxetine HCl 30 mg 06/03/24 09:00 06/08/24 08:43 Duloxetine 30 Mg Capsule PO 30 mg DAILY GABBI Administration Finasteride 5 mg 06/03/24 09:00 06/08/24 08:44 Finasteride 5 Mg Tablet PO 5 mg DAILY GABBI Administration Hydromorphone HCl 0.5 mg 06/02/24 17:48 06/02/24 18:27 Hydromorphone 0.5 Mg/0.5 Ml Syringe IVP 0.5 mg Q2H PRN Administration Breakthrough Pain Doxycycline Hyclate 100 mg/ 100 mls @ 100 mls/hr 06/07/24 12:00 06/08/24 16:50 Sodium Chloride IV Infused 0000,1200 GABBI Infusion Ampicillin Sodium/Sulbactam 100 mls @ 200 mls/hr 06/07/24 14:30 06/08/24 16:50 Sodium 3 gm/ Sodium Chloride IV Infused Q8H GABBI Infusion Oxycodone HCl 10 mg 06/02/24 17:48 06/02/24 19:50 Oxycodone 5 Mg Tablet PO 10 mg Q4HR PRN Administration Pain 8 to 10 Pantoprazole Sodium 40 mg 06/05/24 21:00 06/08/24 08:42 Pantoprazole 40 Mg Vial IV 40 mg BID GABBI Administration Polyethylene Glycol 17 gm 06/04/24 09:00 06/08/24 08:42 Polyethylene Glycol 3350 17 Gm Packet PO 17 gm DAILY GABBI Administration Senna 8.6 mg 06/05/24 12:00 06/08/24 08:44 Senna 8.6 Mg Tablet PO 8.6 mg DAILY GABBI Administration Sodium Chloride 10 ml 06/02/24 17:48 06/08/24 17:01 Sodium Chloride Flush 0.9% 10 Ml Syringe IVP 10 ml PRN PRN Administration NEEDED PER PROVIDER ORDERS Sodium Chloride 10 ml 06/03/24 01:00 06/08/24 17:02 Sodium Chloride Flush 0.9% 10 Ml Syringe IVP 10 ml 0100,0900,1700 GABBI Administration Sodium Chloride 10 ml 06/07/24 17:00 06/08/24 17:01 Sodium Chloride Flush 0.9% 10 Ml Syringe IVP 10 ml 0100,0900,1700 GABBI Administration Sodium Chloride 10 ml 06/07/24 13:22 06/08/24 06:16 Sodium Chloride Flush 0.9% 10 Ml Syringe IVP 10 ml PRN PRN Administration NEEDED PER PROVIDER ORDERS Tamsulosin HCl 0.4 mg 06/03/24 09:00 06/08/24 08:45 Tamsulosin 0.4 Mg Capsule PO 0.4 mg DAILY GABBI Administration Torsemide 10 mg 06/05/24 12:00 06/08/24 08:43 Torsemide 20 Mg Tablet PO 10 mg DAILY GABBI Administration Zinc Oxide 1 gm 06/03/24 18:00 06/08/24 09:40 Cod Liver Oil/Zinc Oxide 113 Gm Tube TOP 1 applic BID GABBI Administration - Lab Result Fish Bone Diagrams: 06/08/24 11:41 06/08/24 04:25 - Additional Planning My Orders: My Active Orders 06/08/24 09:00 Cyanocobalamin [Vitamin B-12] 500 mcg PO DAILY 06/08/24 21:00 Apixaban [Eliquis] 2.5 mg PO BID Subjective - Subjective Patient Reports: Other (Alert. Denies chest pain, shortness of breath and abdominal pain. Denies significant ankle pain.) Objective Vital Signs: Vital Signs - 24 hr 06/07/24 06/07/24 06/07/24 17:20 18:40 19:40 Temperature 36.5 C 36.6 C 36.6 C Heart Rate [ 68 65 67 Brachial] Heart Rate [ Sitting] Heart Rate [ Supine] Respiratory 14 12 12 Rate Blood Pressure [Left Brachial artery] Blood Pressure 126/42 L 125/49 L 115/44 L [Right Brachial artery] Blood Pressure [Sitting] Blood Pressure [Supine] O2 Saturation 97 97 97 If not protocol 3 3 3 : Oxygen Flow, liters/minute 06/07/24 06/07/24 06/07/24 21:00 22:30 22:31 Temperature 36.5 C 36.5 C Heart Rate [ 65 65 Brachial] Heart Rate [ Sitting] Heart Rate [ Supine] Respiratory 12 12 Rate Blood Pressure [Left Brachial artery] Blood Pressure 118/47 L 118/47 L [Right Brachial artery] Blood Pressure [Sitting] Blood Pressure [Supine] O2 Saturation 96 96 If not protocol 2 2 2 : Oxygen Flow, liters/minute 06/07/24 06/08/24 06/08/24 23:33 04:51 06:03 Temperature 36.8 C 36.6 C 36.4 C L Heart Rate [ 66 66 66 Brachial] Heart Rate [ Sitting] Heart Rate [ Supine] Respiratory 16 16 16 Rate Blood Pressure [Left Brachial artery] Blood Pressure 125/55 L 133/54 H 134/64 H [Right Brachial artery] Blood Pressure [Sitting] Blood Pressure [Supine] O2 Saturation 96 94 94 If not protocol 2 2 2 : Oxygen Flow, liters/minute 06/08/24 06/08/24 06/08/24 06:26 07:31 07:36 Temperature 36.3 C L 36.6 C Heart Rate [ 65 66 Brachial] Heart Rate [ Sitting] Heart Rate [ Supine] Respiratory 16 16 Rate Blood Pressure [Left Brachial artery] Blood Pressure 140/59 H 143/63 H [Right Brachial artery] Blood Pressure [Sitting] Blood Pressure [Supine] O2 Saturation 94 95 If not protocol 2 2 2 : Oxygen Flow, liters/minute 06/08/24 06/08/24 06/08/24 07:46 08:50 09:28 Temperature 36.6 C Heart Rate [ 67 66 Brachial] Heart Rate [ Sitting] Heart Rate [ Supine] Respiratory 20 Rate Blood Pressure [Left Brachial artery] Blood Pressure 135/55 H 146/55 H [Right Brachial artery] Blood Pressure [Sitting] Blood Pressure [Supine] O2 Saturation 97 96 If not protocol 1 : Oxygen Flow, liters/minute 06/08/24 06/08/24 06/08/24 11:00 11:01 12:13 Temperature 36.5 C Heart Rate [ 67 Brachial] Heart Rate [ 67 67 Sitting] Heart Rate [ 67 67 Supine] Respiratory 18 Rate Blood Pressure [Left Brachial artery] Blood Pressure 136/57 H [Right Brachial artery] Blood Pressure 139/58 H 139/58 H [Sitting] Blood Pressure 144/60 H 144/60 H [Supine] O2 Saturation 98 If not protocol : Oxygen Flow, liters/minute 06/08/24 15:38 Temperature 36.5 C Heart Rate [ 65 Brachial] Heart Rate [ Sitting] Heart Rate [ Supine] Respiratory 20 Rate Blood Pressure 154/60 H [Left Brachial artery] Blood Pressure [Right Brachial artery] Blood Pressure [Sitting] Blood Pressure [Supine] O2 Saturation 95 If not protocol : Oxygen Flow, liters/minute Oxygen O2 Source Room air I&O (Last 24 Hrs): Intake and Output Totals x24h 06/06/24 06/07/24 06/08/24 23:59 23:59 23:59 Intake Total 1300 1500 3740 Balance 1300 1500 3740 General: Alert, Oriented x3, No acute distress HEENT: Atraumatic, PERRLA Neck: No JVD Neuro: Alert, Non Focal Cardiovascular: Other (Positive S1-S2 no extra heart sounds) Respiratory: Other (Good air exchange in all lung moss no wheezing no crackles.) Abdomen: Other (Soft nontender nondistended positive bowel sounds.) Extremities: No cyanosis Skin: No rashes - Results Results: Laboratory Results WBC 13.4 x10^3/uL (4.8-10.8) H 06/08/24 04:25 RBC 2.42 10^6/uL (4.70-6.10) L 06/08/24 04:25 Hgb 7.5 g/dL (14.0-18.0) L 06/08/24 11:41 Hct 24.5 % (42.0-52.0) L 06/08/24 11:41 MCV 90.5 fL (80.0-94.0) 06/08/24 04:25 MCH 27.3 pg (27.0-31.0) 06/08/24 04:25 MCHC 30.1 g/dL (32.0-36.0) L 06/08/24 04:25 RDW 17.7 % (12.0-15.0) H 06/08/24 04:25 Plt Count 303 10^3/uL (130-450) 06/08/24 04:25 MPV 10.6 fL (7.4-11.4) 06/08/24 04:25 Reticulocyte % (Auto) 3.00 % (0.5-2.3) H 06/04/24 07:20 Neut # (Auto) 11.2 10^3/uL (1.5-6.6) H 06/08/24 04:25 Lymph # (Auto) 1.1 10^3/uL (1.5-3.5) L 06/08/24 04:25 Mcclain # (Auto) 1.0 10^3/uL (0.0-1.0) 06/08/24 04:25 Eos # (Auto) 0.0 10^3/uL (0.0-0.7) 06/08/24 04:25 Baso # (Auto) 0.0 10^3/uL (0.0-0.1) 06/08/24 04:25 Absolute Nucleated RBC 0.03 x10^3/uL 06/08/24 04:25 Nucleated RBC % 0.2 /100WBC 06/08/24 04:25 Absolute Retic 0.080 10^6/uL (0.020-0.110) 06/04/24 07:20 PT 17.2 secs (9.9-12.6) H 06/07/24 06:24 INR 1.6 (0.8-1.2) H 06/07/24 06:24 Sodium 142 mmol/L (135-145) 06/08/24 04:25 Potassium 4.9 mmol/L (3.5-4.5) H 06/08/24 04:25 Chloride 109 mmol/L (101-111) 06/08/24 04:25 Carbon Dioxide 24 mmol/L (21-32) 06/08/24 04:25 Anion Gap 9.0 (6-13) 06/08/24 04:25 BUN 72 mg/dL (6-20) H 06/08/24 04:25 Creatinine 2.2 mg/dL (0.6-1.3) H 06/08/24 04:25 Estimated GFR (MDRD) 29 (>89) L 06/08/24 04:25 Glucose 132 mg/dL (74-104) H 06/08/24 04:25 Calcium 7.8 mg/dL (8.5-10.3) L 06/08/24 04:25 Phosphorus 4.9 mg/dL (2.5-5.0) 06/08/24 04:25 Magnesium 2.1 mg/dL (1.7-2.3) 06/08/24 04:25 Iron < 10 ug/dL (50-212) L 06/04/24 07:20 TIBC 259 ug/dL (250-450) 06/04/24 07:20 % Saturation TNP 06/04/24 07:20 Transferrin 185 mg/dL (203-362) L 06/04/24 07:20 Ferritin 71.4 ng/mL (23.9-336.2) 06/04/24 07:20 Total Bilirubin 0.8 mg/dL (0.2-1.0) 06/05/24 05:01 Direct Bilirubin 0.25 mg/dL (0.03-0.18) H 06/05/24 05:01 AST 15 IU/L (10-42) 06/05/24 05:01 ALT 8 IU/L (10-60) L 06/05/24 05:01 Alkaline Phosphatase 69 IU/L (42-121) 06/05/24 05:01 Total Protein 6.3 g/dL (6.4-8.9) L 06/05/24 05:01 Albumin 2.8 g/dL (3.2-5.5) L 06/05/24 05:01 Globulin 3.5 g/dL (2.1-4.2) 06/05/24 05:01 Albumin/Globulin Ratio 0.8 (1.0-2.2) L 06/02/24 14:34 Lipase < 10 U/L (11-82) L 06/02/24 14:34 Vitamin B12 122 pg/mL (180-914) L 06/06/24 04:25 Vitamin D 25-Hydroxy 22.3 ng/mL (30.0-100.0) L 06/07/24 04:35 Urine Color YELLOW 06/03/24 14:30 Urine Clarity HAZY (CLEAR) 06/03/24 14:30 Urine pH 6.0 PH (5.0-7.5) 06/03/24 14:30 Ur Specific [place] 1.020 (1.002-1.030) 06/03/24 14:30 Urine Protein TRACE mg/dL (NEGATIVE) 06/03/24 14:30 Urine Glucose (UA) >=1000 mg/dL (NEGATIVE) H 06/03/24 14:30 Urine Ketones NEGATIVE mg/dL (NEGATIVE) 06/03/24 14:30 Urine Occult Blood NEGATIVE (NEGATIVE) 06/03/24 14:30 Urine Nitrite NEGATIVE (NEGATIVE) 06/03/24 14:30 Urine Bilirubin NEGATIVE (NEGATIVE) 06/03/24 14:30 Urine Urobilinogen 1 (NORMAL) E.U./dL (NORMAL) 06/03/24 14:30 Ur Leukocyte Esterase TRACE (NEGATIVE) H 06/03/24 14:30 Urine RBC 0-5 /HPF (0-5) 06/03/24 14:30 Urine WBC >25 /HPF (0-3) H 06/03/24 14:30 Urine WBC Clumps PRESENT 06/03/24 14:30 Ur Squamous Epith Cells FEW Squamous (<= Few) 06/03/24 14:30 Urine Bacteria Few /HPF (None Seen) 06/03/24 14:30 Urine Culture Comments INDICATED 06/03/24 14:30 Nasal Influenza B PCR NOT DETECTED 06/04/24 18:50 Nasal Influenza A PCR NOT DETECTED 06/04/24 18:50 Nasal RSV (PCR) NOT DETECTED 06/04/24 18:50 Nasal SARS-CoV-2 (PCR) NOT DETECTED 06/04/24 18:50 Blood Type O POSITIVE 06/06/24 18:06 Blood Type Recheck O POSITIVE 06/02/24 14:34 Antibody Screen NEGATIVE 06/06/24 18:06 Crossmatch IS Only See Detail 06/06/24 18:06 - Procedures Procedures: Procedures CATARAC PHACOEMULS/ASPIR (03/07/14) EXCISION OF LARGE INTESTINE, ENDO, DIAGN (05/12/18) INSERT LENS AT CATAR EXT (03/07/14) Sepsis Event Note (H) - Evaluation Current Stage of Sepsis: Ruled out
[2024-06-08] MEDS: APIXABAN 2.5 MG TABLET PO SCH (22:29)
[2024-06-09 05:27] LABS: HCT - HEMATOCRIT 22.5 % (42.0-52.0); MEAN CORPUSCULAR HEMOGLOBIN 27.6 pg (27.0-31.0); MEAN CORPUSCULAR HGB CONC 31.1 g/dL (32.0-36.0); MEAN CORPUSCULAR VOLUME 88.6 fL (80.0-94.0); MEAN PLATELET VOLUME 10.6 fL (7.4-11.4); RED BLOOD COUNT 2.54 10^6/uL (4.70-6.10); RED CELL DISTRIBUTION WIDTH 18.6 % (12.0-15.0); WHITE BLOOD COUNT 11.1 x10^3/uL (4.8-10.8)
[2024-06-09 05:42] LABS: CREATININE 2.3 mg/dL (0.6-1.3); MAGNESIUM 2.1 mg/dL (1.7-2.3); PHOSPHORUS 4.6 mg/dL (2.5-5.0); POTASSIUM 4.2 mmol/L (3.5-4.5)
--- NOTE | 2024-06-09 10:47 | PROVIDER PROGRESS NOTE ---
Subjective - Prog Note Date Prog Note Date: 06/09/24 Prog Note Time: 10:44 - Subjective Pt reports feeling: Improved, No change Objective - Vital Signs/Intake & Output Vital Signs: Vital Signs x48h Temp Pulse Resp BP Pulse Ox 06/09/24 07:50 36.6 C 66 18 174/74 H 93 06/09/24 04:13 36.6 C 66 18 145/63 H 95 Intake & Output: Intake & Output 06/06/24 06/07/24 06/08/24 06/09/24 23:59 23:59 23:59 23:59 Intake Total 1300 1500 4690 1100 Balance 1300 1500 4690 1100 - Lab Results Fish Bones: 06/09/24 04:54 06/09/24 04:54 Other Labs: Lab Results x24hrs 06/09/24 06/09/24 06/08/24 Range/Units 04:54 04:54 11:41 WBC 11.1 H (4.8-10.8) x10^3/uL RBC 2.54 L (4.70-6.10) 10^6/uL Hgb 7.0 L* 7.5 L (14.0-18.0) g/dL Hct 22.5 L 24.5 L (42.0-52.0) % MCV 88.6 (80.0-94.0) fL MCH 27.6 (27.0-31.0) pg MCHC 31.1 L (32.0-36.0) g/dL RDW 18.6 H (12.0-15.0) % Plt Count 318 (130-450) 10^3/uL MPV 10.6 (7.4-11.4) fL Sodium 138 (135-145) mmol/L Potassium 4.2 (3.5-4.5) mmol/L Chloride 106 (101-111) mmol/L Carbon Dioxide 25 (21-32) mmol/L Anion Gap 7.0 (6-13) BUN 78 H (6-20) mg/dL Creatinine 2.3 H (0.6-1.3) mg/dL Estimated GFR (MDRD) 27 L (>89) Glucose 108 H (74-104) mg/dL Calcium 8.0 L (8.5-10.3) mg/dL Phosphorus 4.6 (2.5-5.0) mg/dL Magnesium 2.1 (1.7-2.3) mg/dL - Other Results/Comments Other Results/Comments: EXAM: Short leg splint - ok Moves toes on command Sensation - ok Good cap filling HCT 22 stable Sepsis Event Note (H) - Evaluation Current Stage of Sepsis: Ruled out Assessment/Plan - Problem List (1) Bimalleolar ankle fracture Impression: Doing satis PLAN: Mobilize as tolerated Likely SNP soon. Followup in Orthopedic clinic in 2 weeks for staple removal and new XR. Qualifiers: Encounter type: initial encounter Fracture type: closed Laterality: right Qualified Code(s): S82.841A - Displaced bimalleolar fracture of right lower leg, initial encounter for closed fracture
[2024-06-09 13:18] LABS: HCT - HEMATOCRIT 25.5 % (42.0-52.0); HGB - HEMOGLOBIN 7.7 g/dL (14.0-18.0)
[2024-06-09] MEDS: SODIUM CHLORIDE 0.9% 500 ML IV ONE (14:10)
--- NOTE | 2024-06-09 17:56 | PROVIDER PROGRESS NOTE ---
Assessment/Plan - Problem List (1) Bimalleolar fracture of right ankle Qualifiers: Encounter type: initial encounter Fracture type: closed Qualified Code(s): S82.841A - Displaced bimalleolar fracture of right lower leg, initial encounter for closed fracture Assessment/Plan: Impression: Mr. Flynn underwent open reduction and internal fixation of displaced right bimalleolar ankle fracture on June 07, 2024. He will be in a short leg posterior splint and nonweightbearing for the next 1-2 weeks. Plan is to transition him to a short leg walking cast for 4 to 6 weeks prior to out of cast weightbearing ambulation. Continue PT/OT as tolerated. Mobilize as tolerated with nonweight bearing on splinted right leg. Anticipate SNF placement. (2) Acute cystitis without hematuria Impression: Urine culture shows Enterococcus faecalis (pansensitive aside from resistant to tetracyclines).Continue Unasyn (3) Acute metabolic encephalopathy Impression: Resolved. Patient is alert and oriented to person time place and situation. (4) Acute respiratory failure with hypoxia Impression: Resolving. Continues on room air. Continue to encourage use of incentive sp irometer on an hourly basis during daylight hours. Continue IV Unasyn and doxycycline for empiric coverage for possible aspiration. Blood cultures with no growth to date (5) Acute on chronic anemia Impression: Patient had 400 mL blood loss perioperatively. Hematocrit remains stable at 25.5. Continue to monitor. (6) Chronic kidney disease, stage 3b Impression: BUN/Creatinine has increased overnight from 72/2.2 to 78/2.3 Continue to monitor. Avoid nephrotoxins if possible. Renally dose medications as appropriate. (7) Ischemic cardiomyopathy Impression: Follows with Dr. Abernathy in cardiology at [facility] cardiology clinic. Has a history of an LVEF 25% in 2021 however it is unclear if he had a more recent echocardiogram through [facility]. Status post biventricular ICD in place Currently he appears euvolemic. Continue torsemide Continue home Coreg, atorvastatin. (8) History of coronary artery disease Impression: Has a history of stenting in 1999 and 2015. He was also admitted to our facility in 2021 for pulmonary edema and NSTEMI, which was treated medically at the time. He denies any recent history of chest pain, exertional chest pain or dyspnea. (9) Chronic atrial fibrillation Impression: Currently rate controlled but irregular heart rate. Continue home Coreg 25 mg twice daily. Restart apixaban at 2.5 mg twice daily. (10) COPD without exacerbation Impression: No acute issues currently. Does not appear to be having a COPD exacerbation as a cause of his hypoxia. PRN Albuterol. - Current Meds Current Meds: Current Medications Generic Name Dose Route Start Last Admin Trade Name Gregorio PRN Reason Stop Dose Admin Acetaminophen 1,000 mg 06/07/24 14:00 06/09/24 13:44 Acetaminophen 500 Mg Tablet PO Not Given Q6H GABIB Alcohol 1 amp 06/07/24 21:00 06/09/24 08:08 Ethyl Alcohol 62% Swab Ampule ADDIE 1 amp BID GABBI Administration Allopurinol 50 mg 06/03/24 10:17 06/09/24 08:07 Allopurinol 100 Mg Tablet PO 50 mg DAILY GABBI Administration Apixaban 2.5 mg 06/08/24 21:00 06/09/24 08:10 Apixaban 2.5 Mg Tablet PO 2.5 mg BID GABBI Administration Aspirin 81 mg 06/07/24 21:00 06/09/24 08:10 Aspirin Ec 81 Mg Tablet PO 81 mg BID GABBI Administration Atorvastatin Calcium 40 mg 06/02/24 21:00 06/08/24 22:30 Atorvastatin 40 Mg Tablet PO 40 mg QPM GABBI Administration Calcium Carbonate/Glycine 500 mg 06/06/24 21:00 06/09/24 08:09 Calcium Carbonate Chew 500 Mg Tablet PO 500 mg BID GABBI Administration Carvedilol 25 mg 06/02/24 21:00 06/09/24 08:08 Carvedilol 12.5 Mg Tablet PO 25 mg BID GABBI Administration Celecoxib 200 mg 06/07/24 21:00 06/09/24 08:09 Celecoxib 100 Mg Capsule PO 200 mg BID GABBI Administration Cholecalciferol 50 mcg 06/07/24 09:00 06/09/24 08:09 Cholecalciferol 25 Mcg Tablet PO 50 mcg DAILY GABBI Administration Cyanocobalamin 500 mcg 06/08/24 09:00 06/09/24 08:09 Cyanocobalamin 500 Mcg Tablet PO 500 mcg DAILY GABBI Administration Docusate Sodium 250 mg 06/06/24 09:00 06/09/24 08:09 Docusate Sodium 250 Mg Capsule PO 250 mg DAILY GABBI Administration Duloxetine HCl 30 mg 06/03/24 09:00 06/09/24 08:08 Duloxetine 30 Mg Capsule PO 30 mg DAILY GABBI Administration Finasteride 5 mg 06/03/24 09:00 06/09/24 08:09 Finasteride 5 Mg Tablet PO 5 mg DAILY GABBI Administration Hydromorphone HCl 0.5 mg 06/02/24 17:48 06/02/24 18:27 Hydromorphone 0.5 Mg/0.5 Ml Syringe IVP 0.5 mg Q2H PRN Administration Breakthrough Pain Doxycycline Hyclate 100 mg/ 100 mls @ 100 mls/hr 06/07/24 12:00 06/09/24 12:07 Sodium Chloride IV 100 mls/hr 0000,1200 GABBI Administration Ampicillin Sodium/Sulbactam 100 mls @ 200 mls/hr 06/07/24 14:30 06/09/24 13:42 Sodium 3 gm/ Sodium Chloride IV 200 mls/hr Q8H GABBI Administration Oxycodone HCl 10 mg 06/02/24 17:48 06/02/24 19:50 Oxycodone 5 Mg Tablet PO 10 mg Q4HR PRN Administration Pain 8 to 10 Pantoprazole Sodium 40 mg 06/05/24 21:00 06/09/24 08:08 Pantoprazole 40 Mg Vial IV 40 mg BID GABBI Administration Polyethylene Glycol 17 gm 06/04/24 09:00 06/09/24 08:08 Polyethylene Glycol 3350 17 Gm Packet PO 17 gm DAILY GABBI Administration Senna 8.6 mg 06/05/24 12:00 06/09/24 08:09 Senna 8.6 Mg Tablet PO 8.6 mg DAILY GABBI Administration Sodium Chloride 10 ml 06/02/24 17:48 06/08/24 17:01 Sodium Chloride Flush 0.9% 10 Ml Syringe IVP 10 ml PRN PRN Administration NEEDED PER PROVIDER ORDERS Sodium Chloride 10 ml 06/03/24 01:00 06/08/24 23:59 Sodium Chloride Flush 0.9% 10 Ml Syringe IVP 10 ml 0100,0900,1700 GABBI Administration Sodium Chloride 10 ml 06/07/24 17:00 06/09/24 08:10 Sodium Chloride Flush 0.9% 10 Ml Syringe IVP 10 ml 0100,0900,1700 GABBI Administration Sodium Chloride 10 ml 06/07/24 13:22 06/08/24 06:16 Sodium Chloride Flush 0.9% 10 Ml Syringe IVP 10 ml PRN PRN Administration NEEDED PER PROVIDER ORDERS Tamsulosin HCl 0.4 mg 06/03/24 09:00 06/09/24 08:09 Tamsulosin 0.4 Mg Capsule PO 0.4 mg DAILY GABBI Administration Torsemide 10 mg 06/05/24 12:00 06/09/24 08:07 Torsemide 20 Mg Tablet PO 10 mg DAILY GABBI Administration Zinc Oxide 1 gm 06/03/24 18:00 06/09/24 09:00 Cod Liver Oil/Zinc Oxide 113 Gm Tube TOP 1 applic BID GABBI Administration - Lab Result Fish Bone Diagrams: 06/09/24 13:05 06/09/24 04:54 - Additional Planning My Orders: My Active Orders 06/08/24 21:00 Apixaban [Eliquis] 2.5 mg PO BID Subjective - Subjective Patient Reports: Other (Alert. No complaints. Denies chest pain, shortness of breath and abdominal pain.) Objective Vital Signs: Vital Signs - 24 hr 06/08/24 06/08/24 06/09/24 21:00 23:36 04:13 Temperature 36.6 C 36.6 C 36.6 C Heart Rate [ 66 67 66 Brachial] Respiratory 16 18 18 Rate Blood Pressure 145/52 H [Left Brachial artery] Blood Pressure 151/62 H 145/63 H [Right Brachial artery] O2 Saturation 93 96 95 06/09/24 06/09/24 06/09/24 07:50 12:07 15:36 Temperature 36.6 C 36.5 C 36.5 C Heart Rate [ 66 67 65 Brachial] Respiratory 18 18 18 Rate Blood Pressure [Left Brachial artery] Blood Pressure 174/74 H 164/78 H 152/62 H [Right Brachial artery] O2 Saturation 93 99 92 Oxygen O2 Source Room air I&O (Last 24 Hrs): Intake and Output Totals x24h 06/07/24 06/08/24 06/09/24 23:59 23:59 23:59 Intake Total 1500 4690 1200 Balance 1500 4690 1200 General: Alert, No acute distress HEENT: Atraumatic Neck: No JVD Lymphatic: no adenopathy Neuro: Alert, Non Focal Cardiovascular: Other (Positive S1-S2. Grade 2/6 FANNY at LLSB) Respiratory: Other (Good air exchange in all lung moss no wheezing no crackles) Abdomen: Other (Soft nontender nondistended positive bowel sounds) Extremities: No cyanosis Skin: No rashes - Results Results: Laboratory Results WBC 11.1 x10^3/uL (4.8-10.8) H 06/09/24 04:54 RBC 2.54 10^6/uL (4.70-6.10) L 06/09/24 04:54 Hgb 7.7 g/dL (14.0-18.0) L 06/09/24 13:05 Hct 25.5 % (42.0-52.0) L 06/09/24 13:05 MCV 88.6 fL (80.0-94.0) 06/09/24 04:54 MCH 27.6 pg (27.0-31.0) 06/09/24 04:54 MCHC 31.1 g/dL (32.0-36.0) L 06/09/24 04:54 RDW 18.6 % (12.0-15.0) H 06/09/24 04:54 Plt Count 318 10^3/uL (130-450) 06/09/24 04:54 MPV 10.6 fL (7.4-11.4) 06/09/24 04:54 Reticulocyte % (Auto) 3.00 % (0.5-2.3) H 06/04/24 07:20 Neut # (Auto) 11.2 10^3/uL (1.5-6.6) H 06/08/24 04:25 Lymph # (Auto) 1.1 10^3/uL (1.5-3.5) L 06/08/24 04:25 [place] # (Auto) 1.0 10^3/uL (0.0-1.0) 06/08/24 04:25 Eos # (Auto) 0.0 10^3/uL (0.0-0.7) 06/08/24 04:25 Baso # (Auto) 0.0 10^3/uL (0.0-0.1) 06/08/24 04:25 Absolute Nucleated RBC 0.03 x10^3/uL 06/08/24 04:25 Nucleated RBC % 0.2 /100WBC 06/08/24 04:25 Absolute Retic 0.080 10^6/uL (0.020-0.110) 06/04/24 07:20 PT 17.2 secs (9.9-12.6) H 06/07/24 06:24 INR 1.6 (0.8-1.2) H 06/07/24 06:24 Sodium 138 mmol/L (135-145) 06/09/24 04:54 Potassium 4.2 mmol/L (3.5-4.5) 06/09/24 04:54 Chloride 106 mmol/L (101-111) 06/09/24 04:54 Carbon Dioxide 25 mmol/L (21-32) 06/09/24 04:54 Anion Gap 7.0 (6-13) 06/09/24 04:54 BUN 78 mg/dL (6-20) H 06/09/24 04:54 Creatinine 2.3 mg/dL (0.6-1.3) H 06/09/24 04:54 Estimated GFR (MDRD) 27 (>89) L 06/09/24 04:54 Glucose 108 mg/dL (74-104) H 06/09/24 04:54 Calcium 8.0 mg/dL (8.5-10.3) L 06/09/24 04:54 Phosphorus 4.6 mg/dL (2.5-5.0) 06/09/24 04:54 Magnesium 2.1 mg/dL (1.7-2.3) 06/09/24 04:54 Iron < 10 ug/dL (50-212) L 06/04/24 07:20 TIBC 259 ug/dL (250-450) 06/04/24 07:20 % Saturation TNP 06/04/24 07:20 Transferrin 185 mg/dL (203-362) L 06/04/24 07:20 Ferritin 71.4 ng/mL (23.9-336.2) 06/04/24 07:20 Total Bilirubin 0.8 mg/dL (0.2-1.0) 06/05/24 05:01 Direct Bilirubin 0.25 mg/dL (0.03-0.18) H 06/05/24 05:01 AST 15 IU/L (10-42) 06/05/24 05:01 ALT 8 IU/L (10-60) L 06/05/24 05:01 Alkaline Phosphatase 69 IU/L (42-121) 06/05/24 05:01 Total Protein 6.3 g/dL (6.4-8.9) L 06/05/24 05:01 Albumin 2.8 g/dL (3.2-5.5) L 06/05/24 05:01 Globulin 3.5 g/dL (2.1-4.2) 06/05/24 05:01 Albumin/Globulin Ratio 0.8 (1.0-2.2) L 06/02/24 14:34 Lipase < 10 U/L (11-82) L 06/02/24 14:34 Vitamin B12 122 pg/mL (180-914) L 06/06/24 04:25 Vitamin D 25-Hydroxy 22.3 ng/mL (30.0-100.0) L 06/07/24 04:35 Urine Color YELLOW 06/03/24 14:30 Urine Clarity HAZY (CLEAR) 06/03/24 14:30 Urine pH 6.0 PH (5.0-7.5) 06/03/24 14:30 Ur Specific [place] 1.020 (1.002-1.030) 06/03/24 14:30 Urine Protein TRACE mg/dL (NEGATIVE) 06/03/24 14:30 Urine Glucose (UA) >=1000 mg/dL (NEGATIVE) H 06/03/24 14:30 Urine Ketones NEGATIVE mg/dL (NEGATIVE) 06/03/24 14:30 Urine Occult Blood NEGATIVE (NEGATIVE) 06/03/24 14:30 Urine Nitrite NEGATIVE (NEGATIVE) 06/03/24 14:30 Urine Bilirubin NEGATIVE (NEGATIVE) 06/03/24 14:30 Urine Urobilinogen 1 (NORMAL) E.U./dL (NORMAL) 06/03/24 14:30 Ur Leukocyte Esterase TRACE (NEGATIVE) H 06/03/24 14:30 Urine RBC 0-5 /HPF (0-5) 06/03/24 14:30 Urine WBC >25 /HPF (0-3) H 06/03/24 14:30 Urine WBC Clumps PRESENT 06/03/24 14:30 Ur Squamous Epith Cells FEW Squamous (<= Few) 06/03/24 14:30 Urine Bacteria Few /HPF (None Seen) 06/03/24 14:30 Urine Culture Comments INDICATED 06/03/24 14:30 Nasal Influenza B PCR NOT DETECTED 06/04/24 18:50 Nasal Influenza A PCR NOT DETECTED 06/04/24 18:50 Nasal RSV (PCR) NOT DETECTED 06/04/24 18:50 Nasal SARS-CoV-2 (PCR) NOT DETECTED 06/04/24 18:50 Blood Type O POSITIVE 06/06/24 18:06 Blood Type Recheck O POSITIVE 06/02/24 14:34 Antibody Screen NEGATIVE 06/06/24 18:06 Crossmatch IS Only See Detail 06/06/24 18:06 - Procedures Procedures: Procedures CATARAC PHACOEMULS/ASPIR (03/07/14) EXCISION OF LARGE INTESTINE, ENDO, DIAGN (05/12/18) INSERT LENS AT CATAR EXT (03/07/14) Sepsis Event Note (H) - Evaluation Current Stage of Sepsis: Ruled out
[2024-06-10 04:53] LABS: HCT - HEMATOCRIT 23.7 % (42.0-52.0); HGB - HEMOGLOBIN 7.5 g/dL (14.0-18.0); MEAN CORPUSCULAR HEMOGLOBIN 28.2 pg (27.0-31.0); MEAN CORPUSCULAR HGB CONC 31.6 g/dL (32.0-36.0); MEAN CORPUSCULAR VOLUME 89.1 fL (80.0-94.0); MEAN PLATELET VOLUME 10.1 fL (7.4-11.4); RED BLOOD COUNT 2.66 10^6/uL (4.70-6.10); RED CELL DISTRIBUTION WIDTH 18.6 % (12.0-15.0)
[2024-06-10 05:20] LABS: CALCIUM 8.2 mg/dL (8.5-10.3); CREATININE 2.1 mg/dL (0.6-1.3); POTASSIUM 4.4 mmol/L (3.5-4.5)
--- NOTE | 2024-06-10 08:57 | Discharge Plan ---
"Discharge Plan for SNF / [facility] - Discharge Plan And Transition Orders Problem Reviewed?: Yes Disposition: 03 SNF DC/Xfer Condition: Stable Allergies and Adverse Reactions: Allergies Allergy/AdvReac Type Severity Reaction Status Date / Time hydrocodone Allergy Unknown Verified 06/02/24 14:08 simvastatin [From Zocor] AdvReac Unknown Verified 06/02/24 14:08 Health Concerns: Per Dr. Josesito Hu's history and physical: Mr. Flynn is an 79-year-old gentleman with a history of hypertension, hyperlipidemia, peripheral vascular disease, coronary artery disease status post PCI in 2006 and 2015, ischemic cardiomyopathy with an LVEF of 25% status post biventricular ICD, chronic atrial fibrillation on Eliquis, CKD stage IIIb, COPD, anemia of chronic disease who presents with a fall and resultant right ankle deformity. The patient indicates that his overall health has been declining over the past couple months 2 weeks and he has been referred to a neurologist in [place] to be evaluated for possible Parkinson's disease. In the past week he has had multiple falls at home due to generalized weakness, falling approximately 7-9 times. He denies having any dizziness, palpitations, presyncope or syncope. He does feel weak in general but does think that his right leg seems a little weaker than the other leg. He did have a fall where he hit his head on 05/27/2024 and he came to the emergency department to be further evaluated. CT scan of his cervical spine along with lower extremity hip CT were negative for any acute pathology. He was ultimately discharged home. Today after he was walking in [facility] with his son, they went out to the car and he had difficulty getting in the car due to weakness. He got his right foot into the car but then lost his balance and started to fall, twisting his right foot as he fell. His right foot had an obvious deformity and EMS was contacted. In the emergency department his vitals were unremarkable however he had an obvious right ankle fracture. X-ray showed a comminuted right fibular fracture along with an unstable trimalleolar fracture. He had adequate pulses and the case was discussed with orthopedic surgeon, Dr. Dowling, who agreed to consult on t he patient. As the patient is taking Eliquis, the plan is for operative evaluation in 48 hours. He was admitted for further care and evaluation. Of note a CT of his head showed no acute pathology and no evidence of acute stroke. Hospital Course: Mr. Phoenix Flynn was admitted to the hospital as an inpatient. On June 03, 2024 the patient was evaluated by Dr. Dowling of orthopedic surgery and his recommendation was to defer for 48 to 72 hours due to the fact the patient was anticoagulated with apixaban. Apixaban was discontinued upon admission. On June 04, 2024 the patient's hospital course was complicated by confusion. Urinalysis was consistent with a urinary tract infection and urine culture grew enteric coccus. Treatment was initiated with Unasyn. On June 05, 2024, there was also concern that the patient may have pneumonia and treatment was initiated with doxycycline in addition to Unasyn. Patient's hospitalization was also complicated by anemia and he received a total of 3 units of packed red blood cells prior to his surgery. The etiology was drop in hematocrit is not entirely clear but may be related to the fact that patient was anticoagulated with apixaban and had a right ankle fracture. The patient was taken to the operating room on June 07, 2024 and he underwent an open reduction and internal fixation of displaced right bimalleolar ankle fracture. During the procedure, the patient had an estimated blood loss of 400 mL and received 1 unit of packed red blood cells postoperatively. He has remained hemodynamically stable and his creatinine has remained stable. The plan is to discharge to a residential facility for rehab. Plan of Treatment: 1. Please take all medications as prescribed. 2. Patient to be transferred to a residential facility with goal of improving strength, balance and conditioning. 3. Patient should follow-up with primary care provider (Kate Barr in 2-4 weeks. ( ) 4. Patient should follow-up at the [facility] in 2 weeks for x-ray and to have stan removed. ( ) Care Goals: Goal of care is to return to baseline and functional independence. Assessment: (1) Bimalleolar fracture of right ankle Qualifiers: Encounter type: initial encounter Fracture type: closed Qualified Code(s): S82.841A - Displaced bimalleolar fracture of right lower leg, initial encounter for closed fracture Assessment/Plan: Impression: Mr. Flynn underwent open reduction and internal fixation of displaced right bimalleolar ankle fracture on June 07, 2024. He will be in a short leg posterior splint and nonweightbearing for the next 1-2 weeks. Plan is to transition him to a short leg walking cast for 4 to 6 weeks prior to out of cast weightbearing ambulation. Patient to discharge to a residential facilty for PT/OT as tolerated. Mobilize as tolerated with nonweight bearing on splinted right leg. (2) Acute cystitis without hematuria Impression: Urine culture shows Enterococcus faecalis (pansensitive aside from resistant to tetracyclines). Patient to complete 4 day course of Augmentin. (3) Acute metabolic encephalopathy Impression: Resolved. Patient is alert and oriented to person time place and situation. (4) Acute respiratory failure with hypoxia Impression: Resolving. Continues on room air. Continue to encourage use of incentive spirometer on an hourly basis during daylight hours. Continue 10 mg PO Torsemide (5) Acute on chronic anemia Impression: Patient had 400 mL blood loss perioperatively. He received 4 units of PRBCs during his hospitalization. Hematocrit is stable. (6) Chronic kidney disease, stage 3b Impression: Baseline creatinine ranges between 1.8 and 2. Continue to monitor intermittently. Avoid nephrotoxins if possible. Renally dose medications as appropriate. (7) Ischemic cardiomyopathy Impression: Follows with Dr. Abernathy in cardiology at [facility] cardiology clinic. Has a history of an LVEF 25% in 2021 however it is unclear if he had a more recent echocardiogram through [facility]. Status post biventricular ICD in place Currently he appears euvolemic. Continue torsemide Continue home Coreg, atorvastatin. (8) History of coronary artery disease Impression: Has a history of stenting in 1999 and 2015. He was also admitted to our facility in 2021 for pulmonary edema and NSTEMI, which was treated medically at the time. He denies any recent history of chest pain, exertional chest pain or dyspnea. (9) Chronic atrial fibrillation Impression: Currently rate controlled but irregular heart rate. Continue home Coreg 25 mg twice daily. Continue apixaban at 2.5 mg twice daily. (10) COPD without exacerbation Impression: No acute issues currently. Does not appear to be having a COPD exacerbation as a cause of his hypoxia. PRN Albuterol. - SNF / [facility] Transition Orders Admit to (Facility): [facility] Discharge Diagnosis: (1) Bimalleolar fracture of right ankle (2) Acute cystitis without hematuria (3) Acute metabolic encephalopathy (4) Acute respiratory failure with hypoxia (5) Acute on chronic anemia (6) Chronic kidney disease, stage 3b (7) Ischemic cardiomyopathy (8) History of coronary artery disease (9) Chronic atrial fibrillation (10) COPD without exacerbation Medicare Certification Statement: I certify that Post Hospital residential care is medically necessary on a continuing basis for any of the conditions for which she/he is receiving care during hospitalization. Notify PCP of admission and forward orders to primary provider for signature. Weight on admission and: Weekly Other Notification Orders: Call PCP immediately if patient develops dyspnea, chest pain/tightness or edema. House Bowel Program: Yes Additional Bowel Program Orders: If no BM after 2 days, nurse may give M.O.M. 30ml PO PRN and/or ducolax Supp 1 TX and/or LETHA 250mg P.O., and/or senna 1-2 tabs PO. On day 3 nurse may give repeat above order until residents constipation is resolved. Annual Influenza Vaccine (between Jun 25 and January 22): Yes Two-step PPD per [facility] [phone] or approved exception documents: Yes Orthopedic Orders: Mr. Flynn underwent open reduction and internal fixation of displaced right bimalleolar ankle fracture on June 07, 2024. He will be in a short leg posterior splint and nonweightbearing for the next 1-2 weeks. Plan is to transition him to a short leg walking cast for 4 to 6 weeks prior to out of cast weightbearing ambulation. Continue PT/OT as tolerated. Mobilize as tolerated with nonweight bearing on splinted right leg Medication Orders: PLEASE REFER TO THE DISCHARGE MEDICATION LIST. - Medications New Prescriptions: oxyCODONE [Roxicodone] 5 mg PO Q4HR PRN #28 tab PRN Reason: Pain 5 to 7 Amox/Clav 500/125 [Augmentin 500/125] 1 tablet PO Q12H #8 tablet Celecoxib [CeleBREX] 200 mg PO BID PRN #60 cap PRN Reason: Pain 1-4 Apixaban [Eliquis] 2.5 mg PO BID #60 tab Cyanocobalamin [Vitamin B-12] 500 mcg PO DAILY #30 tab Cholecalciferol [Vitamin D3] 50 mcg PO DAILY #30 tab - Diet Type: Geriatric Texture: Regular Liquids: Thin May have monthly special meal: Yes - Therapies | Activity Therapy: Evaluation | Treat if indicated: PT, OT Rehabilitation Potential: Maximize functional status, Return to independent living Weight Bearing: Non weightbearing. Extremities: NWBRLE Assistance Devices: Wheelchair Follow Up: Patient should follow-up with primary care provider (Kate Barr in 2-4 weeks. ( ) Patient should follow-up at the [facility] in 2 weeks for x-ray and to have stan removed. ( )"
--- NOTE | 2024-06-10 08:57 | DISCHARGE SUMMARY ---
"Discharge Summary Admit Date: 06/02/24 Discharge Date: 06/10/24 Discharging Provider: Anson Marmolejo MD Code Status: Attempt Resuscitation Condition at Discharge: Stable Discharge Disposition: 03 SNF DC/Xfer Discharge Facility Name: [facility] - DIAGNOSES Admission Diagnoses: (1) Bimalleolar fracture of right ankle (2) Ischemic cardiomyopathy (3) History of coronary artery disease (4) Chronic atrial fibrillation (5) Chronic kidney disease, stage 3b (6) BPH (benign prostatic hyperplasia) (7) Chronic disease anemia (8) COPD without exacerbation Discharge Diagnoses with Status of Each Condition: (1) Bimalleolar fracture of right ankle Qualifiers: Encounter type: initial encounter Fracture type: closed Qualified Code(s): S82.841A - Displaced bimalleolar fracture of right lower leg, initial encounter for closed fracture Assessment/Plan: Impression: Mr. Flynn underwent open reduction and internal fixation of displaced right bimalleolar ankle fracture on June 07, 2024. He will be in a short leg posterior splint and nonweightbearing for the next 1-2 weeks. Plan is to transition him to a short leg walking cast for 4 to 6 weeks prior to out of cast weightbearing ambulation. Patient to discharge to a jail facilty for PT/OT as tolerated. Mobilize as tolerated with nonweight bearing on splinted right leg. (2) Acute cystitis without hematuria Impression: Urine culture shows Enterococcus faecalis (pansensitive aside from resistant to tetracyclines). Patient to complete 4 day course of Augmentin. (3) Acute metabolic encephalopathy Impression: Resolved. Patient is alert and oriented to person time place and situation. (4) Acute respiratory failure with hypoxia Impression: Resolving. Continues on room air. Continue to encourage use of incentive spirometer on an hourly basis during daylight hours. Continue 10 mg PO Torsemide (5) Acute on chronic anemia Impression: Patient had 400 mL blood loss perioperatively. He received 4 units of PRBCs during his hospitalization. Hematocrit is stable. (6) Chronic kidney disease, stage 3b Impression: Baseline creatinine ranges between 1.8 and 2. Continue to monitor intermittently. Avoid nephrotoxins if possible. Renally dose medications as appropriate. (7) Ischemic cardiomyopathy Impression: Follows with Dr. Abernathy in cardiology at [facility] cardiology [facility]. Has a history of an LVEF 25% in 2021 however it is unclear if he had a more recent echocardiogram through [facility]. Status post biventricular ICD in place Currently he appears euvolemic. Continue torsemide Continue home Coreg, atorvastatin. (8) History of coronary artery disease Impression: Has a history of stenting in 1999 and 2015. He was also admitted to our facility in 2021 for pulmonary edema and NSTEMI, which was treated medically at the time. He denies any recent history of chest pain, exertional chest pain or dyspnea. (9) Chronic atrial fibrillation Impression: Currently rate controlled but irregular heart rate. Continue home Coreg 25 mg twice daily. Continue apixaban at 2.5 mg twice daily. (10) COPD without exacerbation Impression: No acute issues currently. Does not appear to be having a COPD exacerbation as a cause of his hypoxia. PRN Albuterol. - HPI History of Present Illness: Per Dr. Josesito Hu's history and physical: Mr. Flynn is an 79-year-old gentleman with a history of hypertension, hyperlipidemia, peripheral vascular disease, coronary artery disease status post PCI in 2006 and 2015, ischemic cardiomyopathy with an LVEF of 25% status post biventricular ICD, chronic atrial fibrillation on Eliquis, CKD stage IIIb, COPD, anemia of chronic disease who presents with a fall and resultant right ankle deformity. The patient indicates that his overall health has been declining over the past couple months 2 weeks and he has been referred to a neurologist in [place] to be evaluated for possible Parkinson's disease. In the past week he has had multiple falls at home due to generalized weakness, falling approx imately 7-9 times. He denies having any dizziness, palpitations, presyncope or syncope. He does feel weak in general but does think that his right leg seems a little weaker than the other leg. He did have a fall where he hit his head on 05/27/2024 and he came to the emergency department to be further evaluated. CT scan of his cervical spine along with lower extremity hip CT were negative for any acute pathology. He was ultimately discharged home. Today after he was walking in [facility] with his son, they went out to the car and he had difficulty getting in the car due to weakness. He got his right foot into the car but then lost his balance and started to fall, twisting his right foot as he fell. His right foot had an obvious deformity and EMS was contacted. In the emergency department his vitals were unremarkable however he had an obvious right ankle fracture. X-ray showed a comminuted right fibular fracture along with an unstable trimalleolar fracture. He had adequate pulses and the case was discussed with orthopedic surgeon, Dr. Dowling, who agreed to consult on the patient. As the patient is taking Eliquis, the plan is for operative evaluation in 48 hours. He was admitted for further care and evaluation. Of note a CT of his head showed no acute pathology and no evidence of acute stroke. - CONSULTS | PROCEDURES Consultations: 06/03/2024 Orthopedic Surgery (Dr. Raad Dowling) Procedures: 06/07/2024 Open reduction and internal fixation of displaced right bimalleolar ankle fracture - HOSPITAL COURSE Hospital Course: Mr. Phoenix Flynn was admitted to the hospital as an inpatient. On June 03, 2024 the patient was evaluated by Dr. Dowling of orthopedic surgery and his recommendation was to defer for 48 to 72 hours due to the fact the patient was anticoagulated with apixaban. Apixaban was discontinued upon admission. On June 04, 2024 the patient's hospital course was complicated by confusion. Urinalysis was consistent with a urinary tract infection and urine culture grew enteric coccus. Treatment was initiated with Unasyn. On June 05, 2024, there was also concern that the patient may have pneumonia and treatment was initiated with doxycycline in addition to Unasyn. Patient's hospitalization was also complicated by anemia and he received a total of 3 units of packed red blood cells prior to his surgery. The etiology was drop in hematocrit is not entirely clear but may be related to the fact that patient was anticoagulated with apixaban and had a right ankle fracture. The patient was taken to the operating room on June 07, 2024 and he underwent an open reduction and internal fixation of displaced right bimalleolar ankle fracture. During the procedure, the patient had an estimated blood loss of 400 mL and received 1 unit of packed red blood cells postoperatively. He has remained hemodynamically stable and his creatinine has remained stable. The plan is to discharge to a jail facility for rehab. - ALLERGIES Allergies/Adverse Reactions: Allergies Allergy/AdvReac Type Severity Reaction Status Date / Time hydrocodone Allergy Unknown Verified 06/02/24 14:08 simvastatin [From Zocor] AdvReac Unknown Verified 06/02/24 14:08 - MEDICATIONS Home Medications: Ambulatory Orders Medication Instructions Recorded Confirmed Atorvastatin Calcium 40 mg PO QPM 01/08/19 06/02/24 Pantoprazole Sodium [Protonix] 40 mg PO DAILY 01/08/19 06/02/24 allopurinoL [Allopurinol] 100 mg PO DAILY 01/08/19 06/02/24 Losartan Potassium 12.5 mg PO DAILY 06/01/22 06/03/24 DULoxetine [Cymbalta] 30 mg PO DAILY 02/17/24 06/02/24 Empagliflozin [Jardiance] 10 mg PO DAILY 02/17/24 06/02/24 Finasteride [Proscar] 5 mg PO DAILY 02/17/24 06/02/24 Torsemide 10 mg PO DAILY 02/17/24 06/02/24 carvediloL [Coreg] 25 mg PO BID 02/17/24 06/02/24 Nitroglycerin [Nitrostat] 0.4 mg SL ONCE PRN 03/31/24 06/02/24 Tamsulosin [Flomax] 0.8 mg PO QPM 03/31/24 06/02/24 Benzonatate [Tessalon] 100 mg PO DAILY 06/02/24 06/02/24 Carbidopa/Levodopa 7.5 tab PO DAILY 06/02/24 06/02/24 [Carbidopa-Levodopa 25-100 Tab] Fluticasone Propion/Salmeterol 1 puffs PO BID 06/02/24 06/02/24 [Advair 250-50 Diskus] Amox/Clav 500/125 [Augmentin 1 tablet PO Q12H #8 tablet 06/10/24 500/125] Apixaban [Eliquis] 2.5 mg PO BID #60 tab 06/10/24 Aspirin EC [Ecotrin] 81 mg PO BID tab 06/10/24 Atorvastatin [Lipitor] 40 mg PO QPM tab 06/10/24 Celecoxib [CeleBREX] 200 mg PO BID PRN #60 cap 06/10/24 Cholecalciferol [Vitamin D3] 50 mcg PO DAILY #30 tab 06/10/24 Cyanocobalamin [Vitamin B-12] 500 mcg PO DAILY #30 tab 06/10/24 oxyCODONE [Roxicodone] 5 mg PO Q4HR PRN #28 tab 06/10/24 - PHYSICAL EXAM AT DISCHARGE General Appearance: positive: No acute distress Eyes Bilateral: positive: Conjunctivae nml Neck: positive: Thyroid nml, No JVD Respiratory: positive: Other (Good air exchange in all lung moss no wheezing no crackles.) Cardiovascular: positive: Other (Positive S1-S2 no extra heart sounds.) Abdomen: positive: Other (Soft nontender nondistended positive bowel sounds) Skin: positive: No rash Extremities: positive: No pedal edema Neurologic/Psychiatric: positive: Oriented x3, Motor nml - LABS Result Diagrams: 06/10/24 04:41 06/10/24 04:41 - SEPSIS Current Stage of Sepsis: Ruled out - QUALITY (Female Hip Fx Only) Was patient sent home on osteoporosis medication?: Yes - FOLLOW UP Follow Up: Patient should follow-up with primary care provider (Kate Barr in 2-4 weeks. ( ) Patient should follow-up at the [facility] in 2 weeks for x-ray and to have stan removed. ( ) - TIME SPENT Time Spent in Discharge (Minutes): 40 (40 minutes spent coordinating discharge for Mr. Flynn)"
--- NOTE | 2024-06-10 10:17 | PROVIDER PROGRESS NOTE ---
Subjective - Prog Note Date Prog Note Date: 06/10/24 Prog Note Time: 10:15 - Subjective Pt reports feeling: Improved Objective - Vital Signs/Intake & Output Vital Signs: Vital Signs x48h Temp Pulse Resp BP BP Pulse Ox 06/10/24 09:04 36.5 C 69 18 183/75 H 94 06/10/24 05:52 36.7 C 66 16 176/66 H 94 Intake & Output: Intake & Output 06/07/24 06/08/24 06/09/24 06/10/24 23:59 23:59 23:59 23:59 Intake Total 1500 4690 2650 1500 Balance 1500 4690 2650 1500 - Lab Results Fish Bones: 06/10/24 04:41 06/10/24 04:41 Other Labs: Lab Results x24hrs 06/10/24 06/10/24 06/09/24 Range/Units 04:41 04:41 13:05 WBC 12.0 H (4.8-10.8) x10^3/uL RBC 2.66 L (4.70-6.10) 10^6/uL Hgb 7.5 L 7.7 L (14.0-18.0) g/dL Hct 23.7 L 25.5 L (42.0-52.0) % MCV 89.1 (80.0-94.0) fL MCH 28.2 (27.0-31.0) pg MCHC 31.6 L (32.0-36.0) g/dL RDW 18.6 H (12.0-15.0) % Plt Count 364 (130-450) 10^3/uL MPV 10.1 (7.4-11.4) fL Sodium 139 (135-145) mmol/L Potassium 4.4 (3.5-4.5) mmol/L Chloride 108 (101-111) mmol/L Carbon Dioxide 23 (21-32) mmol/L Anion Gap 8.0 (6-13) BUN 72 H (6-20) mg/dL Creatinine 2.1 H (0.6-1.3) mg/dL Estimated GFR (MDRD) 30 L (>89) Glucose 111 H (74-104) mg/dL Calcium 8.2 L (8.5-10.3) mg/dL Crossmatch IS Only 06/06/24 Range/Units 18:06 WBC (4.8-10.8) x10^3/uL RBC (4.70-6.10) 10^6/uL Hgb (14.0-18.0) g/dL Hct (42.0-52.0) % MCV (80.0-94.0) fL MCH (27.0-31.0) pg MCHC (32.0-36.0) g/dL RDW (12.0-15.0) % Plt Count (130-450) 10^3/uL MPV (7.4-11.4) fL Sodium (135-145) mmol/L Potassium (3.5-4.5) mmol/L Chloride (101-111) mmol/L Carbon Dioxide (21-32) mmol/L Anion Gap (6-13) BUN (6-20) mg/dL Creatinine (0.6-1.3) mg/dL Estimated GFR (MDRD) (>89) Glucose (74-104) mg/dL Calcium (8.5-10.3) mg/dL Crossmatch IS Only See Detail - Other Results/Comments Other Results/Comments: EXAM: Splint ok Neurovascular - unchanged Sepsis Event Note (H) - Evaluation Current Stage of Sepsis: Ruled out Assessment/Plan - Problem List (1) Bimalleolar ankle fracture Impression: Stable post op PLAN: Mobilize as tolerated. SNP pending. RTC in 2 weeks to orthopedic clinic for XR and stan out. Qualifiers: Encounter type: initial encounter Fracture type: closed Laterality: right Qualified Code(s): S82.841A - Displaced bimalleolar fracture of right lower leg, initial encounter for closed fracture
[2024-06-10 12:23] VITALS: BP 161/70; O2SAT 95
[2024-06-10] MEDS ORDERED: PANTOPRAZOLE 40 MG TABLET PO SCH (16:00)
== END 2024-06-10 13:44 | DRG 492 ==
LOC: ED 13:59 → MS2 17:48
PROVIDERS: ADMIT Hospitalist; ATTEND Hospitalist
PROC: 30233N1 Transfusion of Nonautologous Red Blood Cells into Peripheral Vein, Percutaneous Approach (ICD-10-PCS; 2024-06-04)
PROC: 0QSJ04Z Reposition Right Fibula with Internal Fixation Device, Open Approach (ICD-10-PCS; 2024-06-07)
PROC: 0SSF04Z Reposition Right Ankle Joint with Internal Fixation Device, Open Approach (ICD-10-PCS; 2024-06-07)
PROC: 2W6QXZZ Traction of Right Lower Leg (ICD-10-PCS; 2024-06-07)
PROC: 0QSG04Z Reposition Right Tibia with Internal Fixation Device, Open Approach (ICD-10-PCS; principal; 2024-06-07 08:00)
DX: S82.841A Displaced bimalleolar fracture of right lower leg, initial encounter for closed fracture (principal); G93.41 Metabolic encephalopathy; J96.01 Acute respiratory failure with hypoxia; J18.9 Pneumonia, unspecified organism; I48.20 Chronic atrial fibrillation, unspecified; N30.00 Acute cystitis without hematuria; D62 Acute posthemorrhagic anemia; S82.831A Other fracture of upper and lower end of right fibula, initial encounter for closed fracture; S93.431A Sprain of tibiofibular ligament of right ankle, initial encounter; W05.0XXA Fall from non-moving wheelchair, initial encounter; I25.5 Ischemic cardiomyopathy; I25.10 Atherosclerotic heart disease of native coronary artery without angina pectoris; N18.31 Chronic kidney disease, stage 3a; N40.0 Benign prostatic hyperplasia without lower urinary tract symptoms; D63.1 Anemia in chronic kidney disease; J44.9 Chronic obstructive pulmonary disease, unspecified; B95.2 Enterococcus as the cause of diseases classified elsewhere; I12.9 Hypertensive chronic kidney disease with stage 1 through stage 4 chronic kidney disease, or unspecified chronic kidney disease; E78.5 Hyperlipidemia, unspecified; I73.9 Peripheral vascular disease, unspecified; M10.9 Gout, unspecified; Z79.01 Long term (current) use of anticoagulants; Z79.899 Other long term (current) drug therapy; Z95.5 Presence of coronary angioplasty implant and graft; Z95.810 Presence of automatic (implantable) cardiac defibrillator
CPT/HCPCS: 29515; 36415; 70450; 71045; 73590; 73600; 73630; 74176; 80048; 80053; 80076; 81001; 82272; 82306; 82607; 82728; 83540; 83690; 83735; 84100; 84466; 85014; 85018; 85025; 85027; 85045; 85610; 86850; 86900; 86901; 86920; 87040; 87077; 87086; 87181; 87637; 93005; 96374; 96376; 97162; 97167; 97530; 97535; 99285; A9270; J0131; J1170; J3490; J7120; J7613; P9016; P9040